=== PATIENT | female | born 1950 | race Two or more races ===

== ENCOUNTER 2018-07-03 15:14 | Emergency (ER) | payer OTHER ==
[2018-07-03 15:27] VITALS: BMI 26.4
--- NOTE | 2018-07-03 15:28 | PDOC ---
Rapid Medical Evaluation Time Seen by Provider: 07/03/18 15:21 Medical Evaluation: Allergies Allergy/AdvReac Type Severity Reaction Status Date / Time No Known Drug Allergies Allergy Verified 01/03/15 06:37 07/03/18 15:21 I have performed a brief in-person evaluation of this patient. The patient presents with a chief complaint of: Recent trave from , had a recent toothache sent by PCP Dr Blevins progressive facial pain since 06/14/18 admitted to hospital in . PCP woild like a CVA work up. There has been no resolutions of symptoms since discharge from hospital in Pertinent physical exam findings: No distress I have ordered the following:CT scan cardiac work up Discharge Disposition - Diagnosis Weakness - Referrals - Patient Instructions - Post Discharge Activity
[2018-07-03] MEDS ORDERED: SODIUM CHLORIDE 1,000 ML IV SCH (15:30)
[2018-07-03 16:20] LABS: BASO % 1.1 % (0-2.0); EOS % 1.5 % (0-4.5); HEMATOCRIT 36.4 % (32.4-45.2); LYMPH % 25.4 % (8-40); MCH 25.5 pg (25.7-33.7); MCHC 32.9 g/dl (32.0-36.0); MEAN CELL VOLUME 77.5 fl (80-96); MEAN PLT VOLUME 9.3 fl (7.5-11.1); MONO % 4.3 % (3.8-10.2); NEUT % 67.7 % (42.8-82.8); PLATELET COUNT 284 K/MM3 (134-434); RBC 4.69 M/mm3 (3.60-5.2); RDW 18.6 % (11.6-15.6); WHITE BLOOD COUNT 7.9 K/mm3 (4.0-10.0)
[2018-07-03 16:46] LABS: INR 1.03 (0.83-1.09); PROTHROMBIN TIME (PATIENT) 12.1 SEC (9.7-13.0)
[2018-07-03 17:09] LABS: ALBUMIN 3.7 g/dl (3.4-5.0); ALK PHOS 167 U/L (45-117); ANION GAP 7 MMOL/L (8-16); BILIRUBIN,TOTAL 0.3 mg/dL (0.2-1); BLOOD UREA NITROGEN 37 mg/dL (7-18); CALCIUM 9.4 mg/dL (8.5-10.1); CHLORIDE 100 mmol/L (98-107); CHOLESTEROL 153 mg/dL (50-200); CO2 29 mmol/L (21-32); CREATININE 1.7 mg/dL (0.55-1.3); HDL CHOLESTEROL 42 mg/dL (40-60); POTASSIUM 4.6 mmol/L (3.5-5.1); SGOT/AST 13 U/L (15-37); SGPT/ALT 20 U/L (13-61); SODIUM 136 mmol/L (136-145); TOT PROT 7.9 g/dl (6.4-8.2); TRIGLYCERIDES 182 mg/dL (0-150)
[2018-07-03 17:12] LABS: GLUCOSE,RANDOM 307 mg/dL (74-106)
[2018-07-03 17:39] LABS: EPI CELLS 15.1 /HPF (0-5); PH,URINE 6.5 (5.0-8.0); URINE APPEARANCE CLOUDY; URINE BACTERIA 54.018 /hpf (NEGATIVE); URINE BILIRUBIN NEGATIVE (<2.0 mg/dL); URINE COLOR YELLOW; URINE GLUCOSE (UA) NEGATIVE (NEGATIVE); URINE KETONE NEGATIVE (NEGATIVE); URINE LEUK ESTERASE 3+ (NEGATIVE); URINE NITRITE NEGATIVE (NEGATIVE); URINE PROTEIN NEGATIVE (NEGATIVE); URINE UROBILINOGEN 0.2 mg/dL (0.2-1.0); URINE WBC 52 /hpf (0-5)
[2018-07-03 18:38] LABS: HYALINE CASTS 4.54 /hpf (0-8); URINE RBC 3.5 /hpf (0-4)
--- NOTE | 2018-07-03 18:47 | PDOC ---
Attending Attestation - Resident Resident Name: Ahsan Kauffman - ED Attending Attestation I have performed the following: I have examined & evaluated the patient, The case was reviewed & discussed with the resident, I agree w/resident's findings & plan - HPI HPI: 07/03/18 18:41 The patient is 68 year old female with a significant past medical history of HTN , HLD, DM, CKD III, moderate aortic stenosis and breast cancer (s/p lumpectomy, RT, and endocrine therapy), and CVA ? who presents to the ER via EMS from her PCP, Dr. Blevins office, for CVA workup and evaluation. As per patient, she had a recent travel to and experienced a recent toothache and progressive facial pain since 06/14/18. The patient was admitted and discharged from a hospital in with no resolution of symptoms. As per ambulatory referral documentation, the patient had a stroke with right face paralysis and left hand cellulitis. today she also c/o right sided facial pain, blurry vision and droopy right eyelid. Denies fever, chills, chest pain, SOB, palpitation, dizziness, weakness, N, V, D , abdominal pain, bladder and bowel problems, leg swelling, No sick contacts or travel. No new changes in medications. Allergies: NKDA Past Medical History: Social history: Lives with family. No smoking. No alcohol. No illicit drugs. Surgical history: PMD: Dr. Blevins, [facility] - Physicial Exam PE: 07/03/18 18:43 Agree with the resident's HPI and PE as documented in the electronic medical record. NAD, visual acuity_20/20 bilaterally with dysconjugate gazing nl conjunctiva, anicteric; neck supple. lungs clear, holosystolic murmur with radiation to the carotids, abdomen soft nontender. RIOS x4, no focal neuro deficits. No peripheral edema. normal color for ethnicity, WWP. Alert, oriented to person time and place. PERRL, Rt eyelid ptosis, +rt medial nerve palsy, unable to adduct and cross midline. +rt superior rectus palsy. no diplopia. no facial droop, bilateral and symmetric nasolabial folds and forehead creases. CN V intact bilaterally with normal sensation in CN V distribution and 5/5 masseters Strength prox and distally 5/5 throughout. Sensation grossly intact to light touch. RIOS x4. No cerebellar signs, no dysmetria, bilateral finger to nose, no nystagmus. Speech clear. 07/03/18 19:13 - Medical Decision Making 07/03/18 18:47 I, Monica Cruz MD, attest that this document has been prepared under my direction and personally reviewed by me in its entirety. I further attest, that it accurately reflects all work, treatment, procedures and medical decision -making performed by me. See HPI for details Vital signs reviewed, wnl. DDx. CVA, head bleed, intra cranial bleed, vasculitis, CVT, cranial nerve palsy Prior notes reviewed, including admissions, discharges and consultations. laboratory results and imaging reviewed, basic labs and lytes wnl, notable for: - Cr elevated 1.7 - glucose elevated, will hydrate and recheck. - trop neg, UA_diff with wbcs/leuk esterase, suggestive of infection, abx. EKG normal sinus rhythm, no interval abnormalities, narrow QRS, ST segments and morphology normal, no depressions or elevations.. TWI in inferior/lateral leads v5-6. no prior, findings are nonspecific but e/o ischemia. Trop neg CT head with rt thalamic hypodense focus, infection vs stroke vs mass, unclear. MRI to differentiate. ED course - neuro exam concerning for oculomotor nerve palsy, ?CVA acute vs subacute; recent dental procedure so high risk for seeding vs embolic/thrombotic event precipitating sx. - neuro cs with Dr Engle, will come to evaluate.. recs pending. likely MRI/ MRA to further elucidate - s/o to Dr Dominguez overnight pending imaging and dispo. 07/03/18 19:13 07/04/18 18:54 07/04/18 18:55 07/04/18 18:55 <Monica Cruz - Last Filed: 07/04/18 18:55> Heart Score/ECG Review #1 ECG reviewed & interpreted by me at: 16:00 General ECG Interpretation: Sinus Rhythm Compared to previous ECG there are: Previous ECG unavail 07/03/18 18:48 EKG normal sinus rhythm 71 bpm, no interval abnormalities, narrow QRS, ST segments and morphology normal, no depressions or elevations.. TWI in inferior/ lateral leads v5-6. 07/03/18 18:48 - ECG Intrepretation Rhythm: Regular Rhythm <Monica Cruz - Last Filed: 07/04/18 18:55> Attestations - Attestations 07/03/18 19:00 Documentation prepared by Johnna Ugalde, acting as medical affairs director for Monica Cruz MD, MD <Johnna Ugalde - Last Filed: 07/03/18 19:00>
[2018-07-03] MEDS ORDERED: SODIUM CHLORIDE 0.9% 500 ML INFUS.BAG IV ONE (18:54)
--- NOTE | 2018-07-03 19:29 | PDOC ---
History of Present Illness - General Chief Complaint: CVA/TIA Stated Complaint: SENT BY PCP Time Seen by Provider: 07/03/18 15:21 History Source: Patient, Family, Primary Care Provider (Visit report provided by family.), Pt declined Financial Reserve Clerk (Pt's family provided interpretation.) Exam Limitations: Language Barrier - History of Present Illness Initial Comments: HPI: 68 y/o female presenting to [facility] ER from Dr. Nehal Mcmullen primary care office for further evaluation of right facial paralysis. Pts family at bedside reports she was hospitalized in the [place] two weeks ago for a tooth infection and unilateral right sided facial swelling. Pt/family unable to provide details of hospital course. She was then discharged and returned [place] the [place]. Family reports the pt has had right eyelid drooping since the admission. Pt endorses blurry vision but no double vision. Also endorses pain around the right eye but denies generalized headache. Unable to recall when the eye pain started. Also reporting swelling in left hand, which has been present since hospital admission and believed to be secondary to IV access. Pt is Hungarian speaking only. Family members at bedside provided interpretation. PCP: Dr. Nehal Blevins Medical Hx: - HTN - HLD - DM - CDK, stage III - Moderate Aortic Stenosis - Breast CA s/p lumpectomy, radiation therapy, and endocrine therapy Past History - Past Medical History Allergies/Adverse Reactions: Allergies Allergy/AdvReac Type Severity Reaction Status Date / Time No Known Drug Allergies Allergy Verified 07/03/18 15:23 Home Medications: Ambulatory Orders Alendronate Sodium [Fosamax] 70 mg PO WEEKLY 01/02/15 Aspirin [ASA -] 81 mg PO DAILY 01/02/15 Atorvastatin Ca [Lipitor] 80 mg PO HS 01/02/15 Calcium Carbonate/Vitamin D3 [Calcium 600-Vit D3 800 Caplet] 1 each PO DAILY Chlorthalidone 25 mg PO DAILY 01/02/15 Famotidine 40 mg PO DAILY 01/02/15 Insulin Glargine,Hum.rec.anlog [Lantus (10mL VIAL) -] 50 units SQ HS 01/02/15 Lisinopril [Prinivil -] 40 mg PO DAILY 01/02/15 Metoprolol Tartrate 50 mg PO BID 01/02/15 Nifedipine [Nifedipine ER] 60 mg PO BID 01/02/15 Cephalexin Monohydrate [Keflex -] 500 mg PO BID 5 Days #10 capsule 07/03/18 Clopidogrel Bisulfate [Clopidogrel] 75 mg PO DAILY 07/03/18 Dulaglutide [Trulicity] 0.75 mg SQ WEEKLY 07/03/18 Fluticasone Prop 0.05% Nasal [Flonase -] 1 - 2 spray NS DAILY 07/03/18 Cancer: Yes (BREAST CANCER) COPD: No Diabetes: Yes (IDDM) HTN: Yes - Suicide/Smoking/Psychosocial Hx Smoking History: Former smoker Have you smoked in the past 12 months: No Number of Cigarettes Smoked Daily: 2,010 Information on smoking cessation initiated: No Hx Alcohol Use: No Drug/Substance Use Hx: No Substance Use Type: None Review of Systems - Review of Systems Able to Perform ROS?: Yes Comments:: In addition to that documented in the HPI above, the additional ROS was obtained : Constitutional: Denies fevers or chills Head: Per HPI ENMT: Denies sore throat CV: Denies chest pain Resp: Denies SOB GI: Denies vomiting or diarrhea : Denies painful urination MSK: Denies recent trauma Skin: Denies new rashes Neuro: Denies new numbness or tingling or weakness Endocrine: Denies polyuria Heme: Denies bleeding or bruising *Physical Exam - Vital Signs Last Vital Signs Temp Pulse Resp BP Pulse Ox 98.4 F 71 17 106/45 L 96 07/03/18 15:20 07/03/18 17:55 07/03/18 17:55 07/03/18 17:55 07/03/18 17:55 - Physical Exam Comments: Constitutional: Adult female in no acute distress or obvious discomfort. Found semi-fowlers on hospital bed. Alert and oriented x4. Speech was non-labored, non -pressured. Head: Normocephalic. No obvious external signs of trauma. Eyes: Right ptosis. Right eye medal, superior, and inferior gaze palsy. Disconjugate gaze. Pupils 4mm and PERRL bilaterally. No reported pain with eye movements. Vision 20/20 in R and L. Sclerae white. Conjunctiva moist and not injected. Ears: Hearing grossly intact. Nose: No nasal discharge. Throat: Oral cavity and pharynx normal. Uvula midline. Neck: Supple, trachea is midline. Cardiovascular / Chest: Regular rate and regular rhythm. Systolic murmur that radiates to the carotids. Peripheral pulses: radial pulses full. Respiratory: Breathing unlabored. Equal chest rise and fall. Clear to auscultation bilaterally. No stridor, no wheezing, no rhonchi. Gastrointestinal: abdomen is soft, non-tender, non-distended. Neuro: Alert and oriented. Moving all four extremities spontaneously. Sensation to all four extremities intact. Upper and lower extremities: proximal and distal strength 5/5. Machine Assistant strength 5/5 - equal and symmetric. Plantar flexion and dorsiflexion 5/5. Intact finger to nose and heel to josue. Skin: Warm, dry, and intact. Psych: Affect: appropriate. Mood: normal. Moderate Sedation - Procedure Monitoring Vital Signs: Procedure Monitoring Vital Signs Temperature 98.4 F 07/03/18 15:20 Pulse Rate 71 07/03/18 17:55 Respiratory Rate 17 07/03/18 17:55 Blood Pressure 106/45 L 07/03/18 17:55 O2 Sat by Pulse Oximetry (%) 96 07/03/18 17:55 ED Treatment Course - LABORATORY CBC & Chemistry Diagram: 07/03/18 16:03 07/03/18 16:03 - ADDITIONAL ORDERS Additional order review: Laboratory Results 07/03/18 07/03/18 07/03/18 16:32 16:03 16:03 PT with INR INR Sodium Potassium Chloride Carbon Dioxide Anion Gap BUN Creatinine Creat Clearance w eGFR Random Glucose Calcium Total Bilirubin AST ALT Alkaline Phosphatase Creatine Kinase Troponin I < 0.02 Total Protein Albumin Triglycerides Cholesterol Total LDL Cholesterol HDL Cholesterol Urine Color Yellow Urine Appearance Cloudy Urine pH 6.5 Ur Specific [place] 1.019 Urine Protein Negative Urine Glucose (UA) Negative Urine Ketones Negative Urine Blood Negative Urine Nitrite Negative Urine Bilirubin Negative Urine Urobilinogen 0.2 Ur Leukocyte Esterase 3+ Urine WBC (Auto) 52 Urine RBC (Auto) 3.5 Urine Casts (Auto) 4.54 U Pathogenic Cast Auto None seen U Epithel Cells (Auto) 15.1 Urine Bacteria (Auto) 54.018 Blood Type O POSITIVE Antibody Screen Negative 07/03/18 07/03/18 16:03 16:03 PT with INR 12.10 INR 1.03 Sodium 136 Potassium 4.6 Chloride 100 Carbon Dioxide 29 Anion Gap 7 L BUN 37 H Creatinine 1.7 H Creat Clearance w eGFR 29.89 Random Glucose 307 H* Calcium 9.4 Total Bilirubin 0.3 AST 13 L ALT 20 Alkaline Phosphatase 167 H Creatine Kinase 35 Troponin I < 0.02 Total Protein 7.9 Albumin 3.7 Triglycerides 182 H Cholesterol 153 Total LDL Cholesterol 91 HDL Cholesterol 42 Urine Color Urine Appearance Urine pH Ur Specific [place] Urine Protein Urine Glucose (UA) Urine Ketones Urine Blood Urine Nitrite Urine Bilirubin Urine Urobilinogen Ur Leukocyte Esterase Urine WBC (Auto) Urine RBC (Auto) Urine Casts (Auto) U Pathogenic Cast Auto U Epithel Cells (Auto) Urine Bacteria (Auto) Blood Type Antibody Screen 07/03/18 16:03 RBC 4.69 MCV 77.5 L MCHC 32.9 RDW 18.6 H MPV 9.3 Neutrophils % 67.7 Lymphocytes % 25.4 Monocytes % 4.3 Eosinophils % 1.5 Basophils % 1.1 - RADIOLOGY Radiograph Interpretation: MRI / MRA of Brain ADDENDUM Comments: Don Mckeon MD wrote on Jul 03, 2018 at 09:19 PM: Referring Physician: BISHOP ARGELIA LEPE This finding was verbally communicated to Dr. Jamari on FriJuly 03 2018 21:15 :35 EDT. THIS DOCUMENT HAS BEEN ELECTRONICALLY SIGNED Don Mckeon MD 07/03/2018 21:18 EST MAntonio. Please call Imaging Salvage Engineer [phone] ([phone]) with questions. Don Mckeon MD Comments: Don Mckeon MD wrote on Jul 03, 2018 at 09:03 PM: Referring Physician: BISHOP STOUT Patient Name: REINALDO LEPE THIS IS A PRELIMINARY REPORT FROM IMAGING SALES PROGRAM MANAGER DATE OF SERVICE: 2018-07-03 20:26:51 IMAGES: 203 EXAM: BRAIN MRA WITHOUT CONTRAST / BRAIN MRI W/O CONTRAST HISTORY: 68-year-old female with 3rd nerve palsy. Evaluate for thrombus lesion. COMPARISON: None provided Findings: MRI brain unenhanced 03 July 2018: No areas of diffusion restriction identified. The ventricular system is of normal size shape and configuration. There is T2/flair signal seen anterior/superior to the frontal horn right left lateral ventricle; more prominent on the left side. Signal also noted at the callosal septal interface. Lesion right thalamus measuring 1.4 x 1.9 x 2.1 cm in dimensions; distal lesion demonstrating increased signal peripherally with decreased signal centrally on the T2 sequences with the exam. Some of the signal extending into the upper mesencephalon right side. MRI brain unenhanced 3D [id number] imaging 03 July 2018. No vascular anomalies of the [place] identified. No major branch vessel cutoff evident. Anterior and posterior communicating arteries are patent. No areas of vascular spasm evident. Impression: 1. Lesion noted right thalamus and extending into the upper mesencephalon right side. Some T2/flair signal also noted anterior/superior to the frontal horns right and left lateral ventricles as well as involving the callosal septal interface. Recommend contrast images in follow-up.. THIS DOCUMENT HAS BEEN ELECTRONICALLY SIGNED Don Mckeon MD 07/03/2018 21:01 EST - Medications Given in the ED: ED Medications Discontinued Medications Generic Name Dose Route Start Last Admin Trade Name Freq PRN Reason Stop Dose Admin Sodium Chloride 1,000 ml 07/03/18 18:54 07/03/18 18:58 Normal Saline - IV 07/03/18 18:55 1,000 ml ONCE ONE Administration Medical Decision Making - Medical Decision Making *Reviewed vital signs, nursing notes, and prior visit documentation (if available). 68 y/o female presenting for right eye ptosis x2 weeks. Found to have medial, superior, and inferior nerve palsy with pupillary sparing in the right eye. CT of head revealed right thalamic lesion, which is likely unrelated to current presentation. Pt evaluated at bedside by Dr. Engle, who suspect symptoms were likely a third nerve palsy related to diabetes/hyperglycemia. Requested MRI and MRA to evaluate for possible aneurysm. MRI and MRA unremarkable for aneurysm. Revealed right thalamic lesions. Case discussed with [facility] radiologist who recommended further evaluation with MRI with contrast. Results discussed with Dr. Engle by telephone who recommended the pt be discharged home with outpatient follow up in his clinic. UA remarkable for pyuria and leukocyte esterase. Prescribed 5 day course of Keflex. Discussed imaging and laboratory results with pt and family. Answered all questions. Provided return precautions. Pt expressed verbal understanding and agreement with plan to discharge home with outpatient follow up. *DC/Admit/Observation/Transfer Diagnosis at time of Disposition: Weakness, Oculomotor nerve palsy, right eye, Ptosis of eyelid, right, UTI ( urinary tract infection) - Discharge Dispostion Disposition: HOME Condition at time of disposition: Good Decision to Admit order: No - Prescriptions Prescriptions: Cephalexin Monohydrate [Keflex -] 500 mg PO BID 5 Days #10 capsule - Referrals Referrals: Nehal Blevins [Primary Care Provider] - Lizandro Engle MD [Staff Physician] - - Patient Instructions Printed Discharge Instructions: DI for Urinary Tract Infection (UTI) Additional Instructions: Usted fue visto hoy por la cada del prpado derecho y la visin borrosa. Los resultados de nguyen TC y RM mostraron que tuvo un accidente cerebrovascular en el pasado, candido el wing afectada no causa la cada del prpado. La cada es probablemente un efecto secundario de nguyen diabetes. Nguyen prueba de orina mostr que tiene pj infeccin del tracto urinario. He enviado pj receta de un antibitico llamado Keflex a nguyen farmacia. Kassandra noa se indica en el prospecto. Debe usar un parche en el rylee chandrika (el rylee normal) hasta que pueda hacer un seguimiento con el Dr. Engle, el neurlogo que lo cash en el servicio de urgencias. Deber llamar para hacer pj fabricio para hacer un seguimiento con el Dr. Engle la prxima semana. El nmero est incluido en carson paquete. Colby debe hacer un seguimiento con nguyen mdico de atencin primaria. Tendr que llamar para hacer pj fabricio. El nmero est incluido en carson paquete. Pj copia de los resultados de hoy se adjunta a carson paquete. Llvelo a la fabricio para que nguyen mdico pueda revisarlos. Vaya al departamento de emergencias ms cercano si nguyen afeccin empeora o si aleks que necesita pj evaluacin de emergencia adicional. You were seen today for right eyelid drooping and blurry vision. Your CT and MRI results showed you had a stroke in the past but the area that was affected does not cause eyelid drooping. The drooping is likely a side effect of your diabetes. Your urine test showed you have a urinary tract infection. I have sent a prescription for an antibiotic called Kemarce to your pharmacy. Take as directed on the package insert. You should wear an eye patch on your left eye (the normal eye) until you are able to follow up with Dr. Engle, the neurologist that saw you in the emergency department. You will need to call to make an appointment to follow up with Dr. Engle next week. The number is included in this packet. You should also follow up with your primary care doctor. You will need to call to make an appointment. The number is included in this packet. A copy of today s results are attached to this packet. Take it to the appointment so your doctor can review them. Go to the nearest emergency department if your condition worsens or you feel like you need additional emergency evaluation. Print Language: SWEDISH - Post Discharge Activity
--- NOTE | 2018-07-03 20:07 | CONSULT ---
Consult - text type - Consultation Consultation Note: NEUROLOGY CONSULTATION is greatly appreciated: Case discussed with Dr. Kauffman. Pt examined with her 2 sons at the bedside who aide with history and translation. This 68 yo RH woman with h/o HTN, DM, Chol, ASHD s/p Rx of breast cancer [place] Three weeks ago she was hospitalized with dental abscess requiring antibiotics. Around the same time she developed double vision and drooping of the right lid which has persisted. In [place] was told she had a "stroke." Pt. denies headache at the onset of her neurological symptoms but does note a few headaches/month associated with photophobia x many years. Mild "tension" over forehead today. CT of head (reviewed): scattered nicrovascular changes. Labs sig for mild microcytic anemia; Glu> 300mg% and Urine WBC.30. VIPIN: Neck supple. No bruits. Cor reg. NEURO: Awake, alert. Ox 3. MS, Speech: normal CN II-XII: Right ptosis. R exotropia. No adduction, elevation or depression OD. [id number]. R orbit internally rotates. Motor: No drift or tremor. Normal strength, tone and bulk. Normal reflexes except absent AJ's. Toes downgoing. Coord: No FTN dystaxia Sensory: Reduced vibration feet. IMP: Right CN III mononeuropathy. Pupil spared. Most likely diabetic etiology. Diabetic peripheral neuropathy SUGGEST: MRI and MR angio of the [place] to R/O right PComm aneurysm. Rx UTI and hyperglycemia. If MRA is negative- Neuro f/u as out patient. Thank you very much, Lizandro Engle MD
[2018-07-03 21:14] VITALS: BP 135/64; PULSE 77; TEMP 98.1
--- NOTE | 2018-07-04 16:32 | EKG ---
Test Reason : Blood Pressure : / mmHG Vent. Rate : 071 BPM Atrial Rate : 071 BPM P-R Int : 176 ms QRS Dur : 102 ms QT Int : 374 ms P-R-T Axes : 052 019 -28 degrees QTc Int : 406 ms NORMAL SINUS RHYTHM T WAVE ABNORMALITY, CONSIDER INFERIOR ISCHEMIA ABNORMAL ECG NO PREVIOUS ECGS AVAILABLE Confirmed by MADELINE BOYD MD ([id number]) on 07/04/2018 4:32:26 PM Referred By: Confirmed By:MADELINE BOYD MD
== END 2018-07-03 22:42 | disposition home or self-care (01) ==
LOC: JER 15:14
DX: N39.0 Urinary tract infection, site not specified (principal); H49.01 Third [oculomotor] nerve palsy, right eye; M62.81 Muscle weakness (generalized)
CPT/HCPCS: 36415; 70450-TC; 70544-TC; 70551-TC; 80053; 81003; 82465; 82550; 83718; 83721; 84478; 84484; 85025; 85610; 86850; 86900; 86901; 93005; 93010; 99285-25; J7030

== ENCOUNTER 2018-07-13 16:52 | Inpatient (IN) | payer OTHER ==
--- NOTE | 2018-07-13 17:13 | PDOC ---
Rapid Medical Evaluation Time Seen by Provider: 07/13/18 17:08 Medical Evaluation: Allergies Allergy/AdvReac Type Severity Reaction Status Date / Time No Known Drug Allergies Allergy Verified 07/03/18 15:23 07/13/18 17:11 I have performed a brief in-person evaluation of this patient The patient present with a chief complaint of: sent from pmd for further evaluation. As per family patient seen and released from emergency room 07/03/18. Sent back to ed for mri with constrast. Patient reports dizziness Pertinent physical exam findings: NAD HEENT: PERRLA even and unlabored breathing I have ordered the following: labs, iv acces The patient will proceed to the ED for further evaluation. Discharge Disposition - Diagnosis Dizziness - Referrals - Patient Instructions - Post Discharge Activity
[2018-07-13 17:14] VITALS: BMI 28.2
[2018-07-13 17:33] LABS: BASO % 0.8 % (0-2.0); EOS % 1.4 % (0-4.5); HEMATOCRIT 37.4 % (32.4-45.2); HEMOGLOBIN 11.9 GM/dL (10.7-15.3); LYMPH % 37.9 % (8-40); MCH 24.6 pg (25.7-33.7); MCHC 31.9 g/dl (32.0-36.0); MEAN CELL VOLUME 77.2 fl (80-96); MEAN PLT VOLUME 9.2 fl (7.5-11.1); MONO % 4.6 % (3.8-10.2); NEUT % 55.3 % (42.8-82.8); PLATELET COUNT 173 K/MM3 (134-434); RBC 4.85 M/mm3 (3.60-5.2); RDW 18.8 % (11.6-15.6); WHITE BLOOD COUNT 5.9 K/mm3 (4.0-10.0)
[2018-07-13 18:30] LABS: ALBUMIN 3.8 g/dl (3.4-5.0); ALK PHOS 132 U/L (45-117); ANION GAP 8 MMOL/L (8-16); BILIRUBIN,TOTAL 0.3 mg/dL (0.2-1); BLOOD UREA NITROGEN 28 mg/dL (7-18); CALCIUM 9.4 mg/dL (8.5-10.1); CHLORIDE 102 mmol/L (98-107); CO2 27 mmol/L (21-32); CREATININE 1.5 mg/dL (0.55-1.3); GLUCOSE,RANDOM 205 mg/dL (74-106); POTASSIUM 4.3 mmol/L (3.5-5.1); SGOT/AST 17 U/L (15-37); SGPT/ALT 21 U/L (13-61); SODIUM 136 mmol/L (136-145); TOT PROT 7.7 g/dl (6.4-8.2)
--- NOTE | 2018-07-13 19:07 | PDOC ---
History of Present Illness - General Chief Complaint: CVA/TIA Stated Complaint: to be seen Time Seen by Provider: 07/13/18 17:08 History Source: Patient, Family Exam Limitations: Clinical Condition - History of Present Illness Initial Comments: Pt is Tajik speaking only. Family members at bedside provided interpretation. 68 yo F w a pmh of HTN, HLD, IDDM, CKD stage 3, Moderate aortic stenosis, Breast Ca s/p lumpectomy, radiation therapy and endocrine therapy presents to the ER sent in from Dr. Fall office to receive some labs - CBC, CMP and a brain MRI w and wo contrast to potentially rule out a cerebral abscess. The patient was at Dr. Fall office earlier today and was sent to the ER. Patients family at bedside explains that the patient was recently hospitalized on July 03 to have a stroke work up. The say her eyes have been acting funny and she has experienced a right eyelid droop. 3 weeks ago she was hospitalized in the [facility] for a tooth infection and unilateral right sided facial swelling but the family cannot provide details of the hospital course. The patient is not very conversive and differs to her family for the history. The one thing she does say is that when she turns her head in bed she feels very dizzy and that the room starts spinning. She also endorses right sided facial pain around her eye and right forehead. PCP: Dr. Nehal Blevins PSH: Lumpectomy Allergies: NKDA, NKA Social Hx: Lives with family. No smoking. No alcohol. No illicit drugs. Past History - Past Medical History Allergies/Adverse Reactions: Allergies Allergy/AdvReac Type Severity Reaction Status Date / Time No Known Drug Allergies Allergy Verified 07/03/18 15:23 Home Medications: Ambulatory Orders Alendronate Sodium [Fosamax] 70 mg PO WEEKLY 01/02/15 Aspirin [ASA -] 81 mg PO DAILY 01/02/15 Atorvastatin Ca [Lipitor] 80 mg PO HS 01/02/15 Calcium Carbonate/Vitamin D3 [Calcium 600-Vit D3 800 Caplet] 1 each PO DAILY Chlorthalidone 25 mg PO DAILY 01/02/15 Famotidine 40 mg PO DAILY 01/02/15 Insulin Glargine,Hum.rec.anlog [Lantus (10mL VIAL) -] 50 units SQ HS 01/02/15 Lisinopril [Prinivil -] 40 mg PO DAILY 01/02/15 Metoprolol Tartrate 50 mg PO BID 01/02/15 Nifedipine [Nifedipine ER] 60 mg PO BID 01/02/15 Cephalexin Monohydrate [Keflex -] 500 mg PO BID 5 Days #10 capsule 07/03/18 Clopidogrel Bisulfate [Clopidogrel] 75 mg PO DAILY 07/03/18 Dulaglutide [Trulicity] 0.75 mg SQ WEEKLY 07/03/18 Fluticasone Prop 0.05% Nasal [Flonase -] 1 - 2 spray NS DAILY 07/03/18 Cancer: Yes (BREAST CANCER) COPD: No Diabetes: Yes (IDDM) HTN: Yes - Immunization History Immunization Up to Date: (Unknown) - Suicide/Smoking/Psychosocial Hx Smoking History: Unknown if ever smoked Have you smoked in the past 12 months: No Number of Cigarettes Smoked Daily: 2,010 Hx Alcohol Use: No Drug/Substance Use Hx: No Substance Use Type: None Review of Systems - Review of Systems Able to Perform ROS?: Yes Comments:: CONSTITUTIONAL: Absent: fever, no chills, no fatigue EYES: Present: right eye visual changes ENT: Absent: ear pain, no sore throat CARDIOVASCULAR: Absent: chest pain, no palpitations RESPIRATORY: Absent: cough, no SOB GI: Absent: abdominal pain, no nausea, no vomiting, no constipation, no diarrhea GENITOURINARY: Absent: dysuria, no frequency, no hematuria MUSKULOSKELETAL: Absent: back pain, no arthralgia, no myalgia SKIN: Absent: rash NEURO: Present: Headache, paresthesia, dizziness Absent: focal weakness, unsteady gait, seizure, mental status changes, bladder or bowel incontinence *Physical Exam - Vital Signs Last Vital Signs Temp Pulse Resp BP Pulse Ox 98.3 F 75 20 114/59 L 95 07/13/18 17:08 07/13/18 17:08 07/13/18 17:08 07/13/18 17:08 07/13/18 17:08 - Physical Exam Comments: GENERAL: The patient is not well groomed. Well nourished. Awake and alert. No acute distress. HEENT: Normocephalic, atraumatic. PERRLA, EOMI. No conjunctival pallor. Sclera are non- icteric. Moist mucous membranes. Oropharynx is clear. NECK: Supple. Full ROM. No JVD. No lymphadenopathy. CARDIOVASCULAR: Regular rate and rhythm. No murmurs, rubs, or gallops. Distal pulses are 2+ and symmetric. PULMONARY: No evidence of respiratory distress. Lungs clear to auscultation bilaterally. No wheezing, rales or rhonchi. ABDOMINAL: Soft. Non-tender. Non-distended. No rebound or guarding. No organomegaly. Normoactive bowel sounds. MUSCULOSKELETAL Normal range of motion at all joints. No bony deformities or tenderness. No CVA tenderness. EXTREMITIES: No cyanosis. No clubbing. No edema. No calf tenderness. SKIN: Warm and dry. Normal capillary refill. No rashes. No jaundice. NEUROLOGICAL: There are dystesias in the right CN 5 opthalmic and maxillary distribution. There is a mild right sided facial droop. Alert, awake, appropriate. Otherwise, Cranial nerves 2-12 grossly intact. No other deficits to light touch in face, upper extremities and lower extremities. No other motor deficits in the in face , upper extremities and lower extremities. Normal speech. Toes are down-going bilaterally. PSYCHIATRIC: Cooperative. Good eye contact. Appropriate mood and affect. ED Treatment Course - LABORATORY CBC & Chemistry Diagram: 07/13/18 17:19 07/13/18 17:19 - ADDITIONAL ORDERS Additional order review: Laboratory Results 07/13/18 17:19 Sodium 136 Potassium 4.3 Chloride 102 Carbon Dioxide 27 Anion Gap 8 BUN 28 H Creatinine 1.5 H Creat Clearance w eGFR 34.53 Random Glucose 205 H Calcium 9.4 Total Bilirubin 0.3 AST 17 ALT 21 Alkaline Phosphatase 132 H Total Protein 7.7 Albumin 3.8 07/13/18 17:19 RBC 4.85 MCV 77.2 L MCHC 31.9 L RDW 18.8 H MPV 9.2 Neutrophils % 55.3 Lymphocytes % 37.9 D Monocytes % 4.6 Eosinophils % 1.4 Basophils % 0.8 Medical Decision Making - Medical Decision Making 68 yo F w a pmh of HTN, HLD, IDDM, CKD stage 3, Moderate aortic stenosis, Breast Ca s/p lumpectomy, radiation therapy and endocrine therapy presents to the ER sent in from Dr. Fall office to receive some labs - CBC, CMP and a brain MRI w and wo contrast to potentially rule out a cerebral abscess. The patient was at Dr. Fall office earlier today and was sent to the ER. Patients family at bedside explains that the patient was recently hospitalized on July 03 to have a stroke work up. The say her eyes have been acting funny and she has experienced a right eyelid droop. 3 weeks ago she was hospitalized in the [facility] for a tooth infection and unilateral right sided facial swelling but the family cannot provide details of the hospital course. The patient is not very conversive and differs to her family for the history. The one thing she does say is that when she turns her head in bed she feels very dizzy and that the room starts spinning. She also endorses right sided facial pain around her eye and right forehead. VS: WNL DDx IBNLT: CVA/TIA, cerebral abscess, vascular malformation, complex migraine Plan: Cbc, Cmp, Neuro consult - Oniel, ID consult - Girish, re-assess. Consult placed to Dr. Engle - Dr. Engle states patient likely has a cerebral right thalamic abscess. The patient has received partial Abx treatment once in the DR and again with keflex from the ED but neither of these treatments have anaerobic coverage which is almost certainly the culprit given that this patient's original infection was a toothache which typically involves anaerobic coverage. As per Dr. Fall requests - Will obtain ESR, CRP, MRI w/ contrast, consult ID - Dr. Stout, and admit to the hospital. Consult placed to Dr. Stout - He requests treatment with Vanc, Clinda, and meropenem to treat the likely cerebral abscess. He would like 1 dose of Vanc and Clinda in the ED and 3 doses of Meropenem. Will order MRI, and admit patient for further care. *DC/Admit/Observation/Transfer Diagnosis at time of Disposition: Dizziness, Cerebral abscess - Discharge Dispostion Condition at time of disposition: Guarded Decision to Admit order: Yes - Referrals Referrals: Nehal Blevins [Primary Care Provider] - - Patient Instructions - Post Discharge Activity
--- NOTE | 2018-07-13 19:38 | PDOC ---
Attending Attestation - HPI HPI: 07/13/18 20:07 The patient is a 68 year old female, with a significant past medical history of HTN, HLD, IDDM, CKD stage III, Moderate aortic stenosis, Breast Ca (s/p lumpectomy, radiation therapy and endocrine therapy), who presents to the emergency department from neurologist office to r/o rule out a cerebral abscess. As per patients neurologist, she was admitted in the [facility] [place] for tooth infection and given unknown antibiotics. Patient was evaluated in the ED 2 weeks ago and treated for a UTI. She denies recent chest pain or shortness of breath. Allergies: NKDA Past surgical history: Lumpectomy Social history: Nonsmoker. Denies EtOH use and recreational drug use. Primary Care Physician: Dr. Nehal Blevins - Physicial Exam PE: 07/13/18 20:07 Refer to resident exam. <Socrates Wing - Last Filed: 07/13/18 20:07> - Resident Resident Name: Ward Anderson - ED Attending Attestation I have performed the following: I have examined & evaluated the patient, The case was reviewed & discussed with the resident, I agree w/resident's findings & plan - Medical Decision Making 07/13/18 23:43 68-year-old female with worsening right facial weakness Admission recommended by neurology, case discussed with neurology by the emergency medicine resident MRI ordered for the morning Family advised that patient will need admission IV antibiotics initiated in the emergency department for presumed intracranial abscess <Jeniffer Diaz - Last Filed: 07/13/18 23:45> Attestations - Attestations 07/13/18 20:08 Documentation prepared by Socrates Wing, acting as medical records library professor for Jeniffer Diaz DO. <Socrates Wing - Last Filed: 07/13/18 20:07>
[2018-07-13] MEDS ORDERED: VANCOMYCIN 1,000 MG in DEXTROSE 5%-WATER - 250 ML IVPB ONE (19:53)
[2018-07-13] MEDS ORDERED: MEROPENEM 1 GM in DEXTROSE 5%-WATER 100 ML IVPB ONE (19:54)
[2018-07-13] MEDS ORDERED: CLINDAMYCIN 600MG PREMIX IVPB 600 MG/50 ML BAG IVPB ONE ×2 (19:54→20:25)
[2018-07-13] MEDS ORDERED: VANCOMYCIN 1 GRAM (PRE-DOCKED) 1,000 MG/250 ML BAG IVPB ONE (20:25)
--- NOTE | 2018-07-13 20:31 | PN ---
Teaching Attending Note Name of Resident: Lizandro Olivera ATTENDING PHYSICIAN STATEMENT I saw and evaluated the patient. I reviewed the resident's note and discussed the case with the resident. I agree with the resident's findings and plan as documented. SUBJECTIVE: Patient is a 68 year old woman with PMH of HTN, HLD, Insulin-treated DM, CKD, Moderate aortic stenosis, Breast Ca s/p lumpectomy, radiation therapy and endocrine therapy presents to the ER sent in from Dr. Engle's office to get Labs - CBC, CMP and a brain MRI w/wo contrast to potentially rule out a cerebral abscess. Patient's family at bedside explains that the patient was recently hospitalized on July 03 to have a stroke work up. The say her eyes have been acting funny and she has experienced a right eyelid droop. Three weeks ago she was [place] for a [place] infection and unilateral right sided facial swelling but the family cannot provide details of the hospital course. The one thing she does say is that when she turns her head in bed she feels very dizzy and that the room starts spinning. She also endorses right sided facial pain around her eye and right forehead. Denies fever, chills, chest pain, SOB, palpitation, dizziness, weakness, nausea , vomiting, diarrhea, abdominal pain, bladder and bowel problems or leg swelling. OBJECTIVE: Somnolent but arousable Vital Signs Period Temp Pulse Resp BP Sys/Alvares Pulse Ox Last 24 Hr 98.3 F 75 20 114/59 95 HEENT: No Jaundice, eye redness or discharge, PERRLA, right eye ptosis and gaze palsy. Normocephalic, atraumatic. External ears are normal and hearing is grossly intact. No nasal discharge. Neck: Supple, nontender. No palpable adenopathy or thyromegaly. No JVD Chest: Good effort. Clear to auscultation and percussion. Heart: Regular. No S3 or rub; 3/6 LELIA Abdomen: Not distended, soft, nontender and no HSM. No rebound or guarding. Normal bowel sounds. Ext: Peripheral pulses intact. No leg edema. Skin: Warm and dry. No petechiae, rash or ecchymosis. Neuro: Somnolent but arousable. Oriented x3. CN 2-12 grossly intact. Sensation grossly intact in all four extremities and DTR are symmetric. Gait cannot be tested for safety reasons. Plantar reflexes are flexor. Psych: Sad mood. Appropriate affect. Good insight. Current Medications Generic Name Dose Route Start Last Admin Trade Name Gisell PRN Reason Stop Dose Admin Vancomycin HCl 1,000 mg/ 250 mls @ 166.667 mls/hr 07/13/18 19:53 Dextrose IVPB 07/13/18 21:22 ONCE ONE Protocol Home Medications Medication Instructions Recorded Alendronate Sodium [Fosamax] 70 mg PO WEEKLY 01/02/15 Aspirin [ASA -] 81 mg PO DAILY 01/02/15 Atorvastatin Ca [Lipitor] 80 mg PO HS 01/02/15 Calcium Carbonate/Vitamin D3 1 each PO DAILY 01/02/15 [Calcium 600-Vit D3 800 Caplet] Chlorthalidone 25 mg PO DAILY 01/02/15 Famotidine 40 mg PO DAILY 01/02/15 Insulin Glargine,Hum.rec.anlog 50 units SQ HS 01/02/15 [Lantus (10mL VIAL) -] Lisinopril [Prinivil -] 40 mg PO DAILY 01/02/15 Metoprolol Tartrate 50 mg PO BID 01/02/15 Nifedipine [Nifedipine ER] 60 mg PO BID 01/02/15 Cephalexin Monohydrate [Keflex -] 500 mg PO BID 5 Days #10 capsule 07/03/18 Clopidogrel Bisulfate [Clopidogrel] 75 mg PO DAILY 07/03/18 Dulaglutide [Trulicity] 0.75 mg SQ WEEKLY 07/03/18 Fluticasone Prop 0.05% Nasal 1 - 2 spray NS DAILY 07/03/18 [Flonase -] Abnormal Lab Results 07/13/18 07/13/18 17:19 17:19 MCV 77.2 L MCH 24.6 L MCHC 31.9 L RDW 18.8 H BUN 28 H Creatinine 1.5 H Random Glucose 205 H Alkaline Phosphatase 132 H ASSESSMENT AND PLAN: 1. Dizziness/Right eye gaze plasy/Rule out Cerebral Abscess - On 07/03/[address], MRI/MRA. 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 Neurosurgery and ID consults noted. Patient was recently treated with antibiotics (Keflex) for UTI on 07/03/18 though the urine culture was negative. Unclear if she indeed had a "dental abscess" in the [place] and what antibiotic she received. Etiology of intracranial space occupying lesion is unclear. She is afebrile and does not have leukocytosis. ECHO (vegetations?) and facial bone/soft tissue CT ( residue of dental infection?) may be helpful. ID recommended IV vancomycin/ clindamycin and meropenem. Repeat MRI brain pending. Will do neurochecks and implement fall, seizure and aspiration precautions. 2. DM For now, we will hold the home diabetes drugs and implement sliding scale insulin regimen. Provide comprehensive diabetes care with patient teaching and counseling about the importance of adherence to prescribed diabetes regimen, euglycemia, eye care and foot care. 3. CKD - Has risk factors for CKD, but unclear whether she has gotten a full nephrologic work up. Will check PTH and phosphate levels. Avoid nephrotoxic agents such as NSAIDS, aminoglycosides, contrast dyes and certain Alternative medicine products. 4. Hypertension - Restart outpatient antihypertensive drugs and revise regimen to ensure smooth [id number] good BP control. Nonpharmacologic measures to control hypertension like weight loss, salt restriction and exercise discussed. 5. DVT prophylaxis - Heparin 5000 units SQ tid. 6. Advance directives - Full code
--- NOTE | 2018-07-13 21:17 | CON.ID ---
Consult - Alcohol/Substance Use Hx Alcohol Use: No - Smoking History Smoking history: Unknown if ever smoked Have you smoked in the past 12 months: No Aproximately how many cigarettes per day: 2,010 Home Medications - Allergies Allergies/Adverse Reactions: Allergies Allergy/AdvReac Type Severity Reaction Status Date / Time No Known Drug Allergies Allergy Verified 07/03/18 15:23 - Home Medications Home Medications: Ambulatory Orders Alendronate Sodium [Fosamax] 70 mg PO WEEKLY 01/02/15 Aspirin [ASA -] 81 mg PO DAILY 01/02/15 Atorvastatin Ca [Lipitor] 80 mg PO HS 01/02/15 Calcium Carbonate/Vitamin D3 [Calcium 600-Vit D3 800 Caplet] 1 each PO DAILY Chlorthalidone 25 mg PO DAILY 01/02/15 Famotidine 40 mg PO DAILY 01/02/15 Insulin Glargine,Hum.rec.anlog [Lantus (10mL VIAL) -] 50 units SQ HS 01/02/15 Lisinopril [Prinivil -] 40 mg PO DAILY 01/02/15 Metoprolol Tartrate 50 mg PO BID 01/02/15 Nifedipine [Nifedipine ER] 60 mg PO BID 01/02/15 Cephalexin Monohydrate [Keflex -] 500 mg PO BID 5 Days #10 capsule 07/03/18 Clopidogrel Bisulfate [Clopidogrel] 75 mg PO DAILY 07/03/18 Dulaglutide [Trulicity] 0.75 mg SQ WEEKLY 07/03/18 Fluticasone Prop 0.05% Nasal [Flonase -] 1 - 2 spray NS DAILY 07/03/18 Physical Exam Vital Signs: Vital Signs Temperature 98.3 F 07/13/18 17:08 Pulse Rate 75 07/13/18 17:08 Respiratory Rate 20 07/13/18 17:08 Blood Pressure 114/59 L 07/13/18 17:08 O2 Sat by Pulse Oximetry (%) 95 07/13/18 17:08 Labs: CBC, BMP 07/13/18 17:19 07/13/18 17:19
--- NOTE | 2018-07-13 22:58 | HP ---
CHIEF COMPLAINT: Right eye droop PCP: Dr. Nehla Blevins HISTORY OF PRESENT ILLNESS: Pt. is a 68 y.o. Paraguayan-speaking F presenting at the request of Dr. Engle for evaluation of suspected cerebral abscess. History obtained mostly from daughter and son at bedside. Pt. has been having ongoing right eye droop, lethargy and unstable gait ever since she returned from the [facility] over [address] [place] Pt. was hospitalized for a tooth extraction 2/2 infection? and afterwards the symptoms were noted to have started. Pt. was evaluated for CVA with negative radiological findings. Pt. recently seen in ED (07/03/18) for similar complaints(CVA workup) and was discharged on 5 days Keflex for UTI and with instructions to follow up with Neurology. Per Pt.'s daughter there has been some improvement since 07/03/18 however Pt. has not gone back to her baseline self which is walking ~5 blocks/ day talking and taking care of herself at home. Pt. endorses unstable gait, double vision, right superior periorbital tenderness to palpation associated with headache, lethargy, fatigue and dizziness. Pt. denies any fever or chills, diarrhea, chest pain or shortness of breath. ER course was notable for: (1)labs, Neurology and ID consults (2)Ame Donnelly Clinda (3)MRI order Recent Travel: Yes, [facility] PAST MEDICAL HISTORY: HTN, HLD, CKD, Aortic Stenosis, Breast Ca (s/p RT, Endocrine therapy and lumpectomy in 2011), CAD, and CVA? PAST SURGICAL HISTORY: Lumpectomy, Carotid Endarterectomy (2017) Social History: Smoking: Quit smoking 20 years ago, was 1 PPD Alcohol: Denies Drugs: Denies Family History: Allergies No Known Drug Allergies Allergy (Verified 07/03/18 15:23) HOME MEDICATIONS: Home Medications Medication Instructions Recorded Alendronate Sodium [Fosamax] 70 mg PO WEEKLY 01/02/15 Aspirin [ASA -] 81 mg PO DAILY 01/02/15 Atorvastatin Ca [Lipitor] 80 mg PO HS 01/02/15 Calcium Carbonate/Vitamin D3 1 each PO DAILY 01/02/15 [Calcium 600-Vit D3 800 Caplet] Chlorthalidone 25 mg PO DAILY 01/02/15 Famotidine 40 mg PO DAILY 01/02/15 Insulin Glargine,Hum.rec.anlog 50 units SQ HS 01/02/15 [Lantus (10mL VIAL) -] Lisinopril [Prinivil -] 40 mg PO DAILY 01/02/15 Metoprolol Tartrate 50 mg PO BID 01/02/15 Nifedipine [Nifedipine ER] 60 mg PO BID 01/02/15 Cephalexin Monohydrate [Keflex -] 500 mg PO BID 5 Days #10 capsule 07/03/18 Clopidogrel Bisulfate [Clopidogrel] 75 mg PO DAILY 07/03/18 Dulaglutide [Trulicity] 0.75 mg SQ WEEKLY 07/03/18 Fluticasone Prop 0.05% Nasal 1 - 2 spray NS DAILY 07/03/18 [Flonase -] REVIEW OF SYSTEMS As per [facility] PHYSICAL EXAMINATION Vital Signs - 24 hr 07/13/18 17:08 Temperature 98.3 F Pulse Rate 75 Respiratory 20 Rate Blood Pressure 114/59 L O2 Sat by Pulse 95 Oximetry (%) GENERAL: Awake, lethargic, and fully oriented, in mild distress. HEAD: Normal with no signs of gross trauma. EYES: R. Eye unable to cross midline on left lateral gaze. R. eye unable to look downward. R. pupil has sluggish reaction to light. Pt. endorses being able to see out of right eye. Left eye unremarkable. EARS, NOSE, THROAT: Ears normal, nares patent, oropharynx clear without exudates. Moist mucous membranes. NECK: Normal range of motion, supple without lymphadenopathy, JVD, or masses. LUNGS: Diffuse crackles, increasingly prominent in fluid dependant portions of lung, No accessory muscle use. HEART: Grade III Systolic murmur, regular rate and rhythm, with S1 and S2 ABDOMEN: Soft, nontender, not distended, normoactive bowel sounds, no guarding, no rebound, no masses. MUSCULOSKELETAL: Normal range of motion at all joints. No bony deformities or tenderness. No CVA tenderness. UPPER EXTREMITIES: 2+ radial pulses, warm, well-perfused. No cyanosis. No clubbing. No peripheral edema. 5/5 upper extremity strength LOWER EXTREMITIES: 2+ dorsal pedal pulses, warm, well-perfused. No calf tenderness. No peripheral edema. Unable to lift legs off bed for more than 5 seconds because of pain in knees NEUROLOGICAL: Lethargic SKIN: Warm, dry, normal turgor, no rashes or lesions noted, normal capillary refill. Laboratory Results - last 24 hr 07/13/18 07/13/18 07/13/18 17:19 17:19 21:05 WBC 5.9 RBC 4.85 Hgb 11.9 Hct 37.4 MCV 77.2 L MCH 24.6 L MCHC 31.9 L RDW 18.8 H Plt Count 173 D MPV 9.2 Absolute Neuts (auto) 3.2 Neutrophils % 55.3 Lymphocytes % 37.9 D Monocytes % 4.6 Eosinophils % 1.4 Basophils % 0.8 Nucleated RBC % 0 ESR 8 Sodium 136 Potassium 4.3 Chloride 102 Carbon Dioxide 27 Anion Gap 8 BUN 28 H Creatinine 1.5 H Creat Clearance w eGFR 34.53 Random Glucose 205 H Calcium 9.4 Total Bilirubin 0.3 AST 17 ALT 21 Alkaline Phosphatase 132 H C-Reactive Protein < 0.3 Total Protein 7.7 Albumin 3.8 ASSESSMENT/PLAN: Pt. is a 68 y.o. [place]aguayan-speaking F w/ PMHx. of HTN, HLD, CKD, Aortic Stenosis, Breast Ca, CAD, and CVA? presents at the request of Dr. Engle for evaluation of suspected cerebral abscess. #Suspected Cerebral Abscess Started on IV Abx (Vanco, Merrem and Clindamycin)- likely causative agents are Strep and Staph from dental procedure, no documentation of more common agents in the [place] other than parasites. No elevated WBCs, afebrile- however up to 50% of Pts. with abscess can present with only focal neurological deficits and headaches f/u old Head CT to compare as unlikely Pt. developed a new AVM. f/u Blood Cx. f/u Rpt. MRI MRI from 07/03/18 showed 4.8mm aneurysm of R. 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 Engle reads an abscess. ID Consult to Dr. Stout appreciated Neuro consult to Dr. Engle appreciated Consider Dental CT w/ contrast to assess if Pt. has abscess around dental site for speciation Consider HIV test and Parasitic/Fungal agents if Pt.'s condition continues to worsen or Pt. does not improve. #IDDM hold home oral meds ISS TIDAC BGM TIDAC f/u A1c #CKD vs. BRYON likely CKD given Pt.s Age, Hx. of HTN, DM and amount and dosage of medications Trend BMP Pt. endorses good appetite therefore will encourage PO intake #HTN Medication reconciliation- as Pt. has Aortic stenosis, care to avoid large swings in BP. c/w Nifedipine, Metoprolol, and Lisinopril #CAD/PAD/HLD c/w Plavix, ASA and Atorvastatin #FEN encourage PO intake monitor electrolytes and replete as needed Diabetic/Na restricted Diet #DVT ppx. Hep 5k BID SQ Visit type - Emergency Visit Emergency Visit: Yes ED Registration Date: 07/13/18 Care time: The patient presented to the Emergency Department on the above date and was hospitalized for further evaluation of their emergent condition. - New Patient This patient is new to me today: Yes Date on this admission: 07/13/18 - Critical Care Critical Care patient: No
[2018-07-14] MEDS ORDERED: ALENDRONATE SODIUM 70 MG PO SCH (02:30)
[2018-07-14] MEDS: MEROPENEM 1 GM in DEXTROSE 5%-WATER 100 ML IVPB SCH ×3 (05:45→21:39)
[2018-07-14 06:26] LABS: BASO % 0.4 % (0-2.0); EOS % 1.7 % (0-4.5); HEMATOCRIT 35.9 % (32.4-45.2); HEMOGLOBIN 11.1 GM/dL (10.7-15.3); LYMPH % 46.8 % (8-40); MCH 23.9 pg (25.7-33.7); MEAN CELL VOLUME 76.9 fl (80-96); MEAN PLT VOLUME 9.2 fl (7.5-11.1); MONO % 7.5 % (3.8-10.2); NEUT % 43.6 % (42.8-82.8); PLATELET COUNT 156 K/MM3 (134-434); RBC 4.67 M/mm3 (3.60-5.2); WHITE BLOOD COUNT 5.5 K/mm3 (4.0-10.0)
[2018-07-14] MEDS: INSULIN SLIDING SCALE (NOVOLOG) 1 VIAL SQ SCH ×3 (06:56→17:04)
[2018-07-14 07:00] LABS: ANION GAP 5 MMOL/L (8-16); BLOOD UREA NITROGEN 29 mg/dL (7-18); CALCIUM 9.3 mg/dL (8.5-10.1); CHLORIDE 103 mmol/L (98-107); CO2 28 mmol/L (21-32); CREATININE 1.4 mg/dL (0.55-1.3); GLUCOSE,RANDOM 157 mg/dL (74-106); MAGNESIUM 2.4 mg/dL (1.8-2.4); PHOSPHOROUS 4.7 mg/dL (2.5-4.9); SODIUM 136 mmol/L (136-145)
[2018-07-14] MEDS: ASPIRIN 81 MG CHEWABLE TABLETS PO SCH (09:06)
[2018-07-14] MEDS: CHLORTHALIDONE 25 MG TABLET PO SCH (09:06)
[2018-07-14] MEDS: METOPROLOL TARTRATE 50 MG TABLET (FP) PO SCH ×2 (09:06→21:40)
[2018-07-14] MEDS: HEPARIN NA (PORCINE) 5,000 UNITS/ML 1ML VIAL SQ SCH ×2 (09:06→21:40)
[2018-07-14] MEDS: CLOPIDOGREL BISULFATE 75 MG TABLET (FP) PO SCH (09:07)
[2018-07-14] MEDS: LISINOPRIL 20 MG TABLET (FP) PO SCH (09:07)
[2018-07-14] MEDS: NIFEdipine E.R 60 MG TABLET (UD) PO SCH ×2 (09:07→21:40)
[2018-07-14] MEDS: RANITIDINE HCL 150 MG TABLET (FP) PO SCH (09:07)
--- NOTE | 2018-07-14 12:58 | PN ---
Teaching Attending Note Name of Resident: Abiodun Cadet ATTENDING PHYSICIAN STATEMENT I saw and evaluated the patient. I reviewed the resident's note and discussed the case with the resident. I agree with the resident's findings and plan as documented. SUBJECTIVE:continues to be dizzy with blurred vision. as per son present at bedside. has had these symptoms since return from DR. benitez all the time and not worse with movement. has not had any other complaints. denies CP, SOB, fever, chills, N/V/C/D, weakness/numbness of one side of the body. no episodes in the past OBJECTIVE: Last Vital Signs Temp Pulse Resp BP Pulse Ox 97.9 F 66 16 117/51 L 98 07/14/18 09:00 07/14/18 09:00 07/14/18 09:00 07/14/18 09:00 07/14/18 06:23 General. lethargic CV S1 S2 +murmur Lungs CTA B/L no wheezing/rales/rhonchi Abdomen Soft NT/ND Neuro R lid lag, remaining CN intact, strength and sensation equal in all 4 extremities. ASSESSMENT AND PLAN: 68yo F with PMH HTN, DM, Dyslipidemia, CKD, breast ca s/p lumpectomy presented to the ER for persistent dizzyness and blurred vision with concerns for cerebral abscess 1. Dizznesss- r/o cerbral abscess. MRI with contrast is ordered. reviewed MRI/ MRA done last month showing aneurysm but no other pathology to explain symptoms. started on empiric meropenem. ID and neuro on board 2. +murmur- as per patient she has no hx of murmur but is listed in from chart last month has known . will need to f/u with PMD to monitor 3. CKD- at baseline 4. DM- hold oral agents. cont iss and bgm, Lantus hs 5. DVT ppx- hep sq 6. spoke with son present at bedside. all questions answered
--- NOTE | 2018-07-14 14:32 | CON.ID ---
Consult Consult Specialty:: infectious diseases Referred by:: hospitalist Reason for Consultation:: brain abscess - History of Present Illness Chief Complaint: headache weakness History of Present Illness: 68 year old female, with a significant past medical history of HTN, HLD, IDDM, CKD stage III, Moderate aortic stenosis, Breast Ca (s/p lumpectomy, radiation therapy and endocrine therapy), who presents to the emergency department from neurologist office to r/o rule out a cerebral abscess. As per patients neurologist, she was admitted in the [facility] for tooth infection and given unknown antibiotics. Patient was evaluated in the ED 2 weeks ago and treated for a UTI. She denies recent chest pain or shortness of breath. patients son with her in the room and according to him she is also ahving photophobia very weak - History Source History Provided By: Patient, Family Member Limitations to Obtaining History: Language Barrier - Alcohol/Substance Use Hx Alcohol Use: No - Smoking History Smoking history: Unknown if ever smoked Have you smoked in the past 12 months: No Aproximately how many cigarettes per day: 2,010 Home Medications - Allergies Allergies/Adverse Reactions: Allergies Allergy/AdvReac Type Severity Reaction Status Date / Time No Known Drug Allergies Allergy Verified 07/03/18 15:23 - Home Medications Home Medications: Ambulatory Orders Alendronate Sodium [Fosamax] 70 mg PO WEEKLY 01/02/15 Aspirin [ASA -] 81 mg PO DAILY 01/02/15 Atorvastatin Ca [Lipitor] 80 mg PO HS 01/02/15 Calcium Carbonate/Vitamin D3 [Calcium 600-Vit D3 800 Caplet] 1 each PO DAILY Chlorthalidone 25 mg PO DAILY 01/02/15 Famotidine 40 mg PO DAILY 01/02/15 Insulin Glargine,Hum.rec.anlog [Lantus (10mL VIAL) -] 50 units SQ HS 01/02/15 Lisinopril [Prinivil -] 40 mg PO DAILY 01/02/15 Metoprolol Tartrate 50 mg PO BID 01/02/15 Nifedipine [Nifedipine ER] 60 mg PO BID 01/02/15 Clopidogrel Bisulfate [Clopidogrel] 75 mg PO DAILY 07/03/18 Dulaglutide [Trulicity] 0.75 mg SQ WEEKLY 07/03/18 Fluticasone Prop 0.05% Nasal [Flonase -] 1 - 2 spray NS DAILY 07/03/18 Review of Systems - Review of Systems Constitutional: reports: Malaise, Weakness Eyes: reports: No Symptoms HENT: reports: No Symptoms Neck: reports: No Symptoms Cardiovascular: reports: No Symptoms Respiratory: reports: No Symptoms Gastrointestinal: reports: No Symptoms Genitourinary: reports: No Symptoms Musculoskeletal: reports: No Symptoms Integumentary: reports: No Symptoms Neurological: reports: Other (headache) Endocrine: reports: No Symptoms Hematology/Lymphatic: reports: No Symptoms Psychiatric: reports: No Symptoms Physical Exam Vital Signs: Vital Signs Temperature 98.0 F 07/14/18 13:00 Pulse Rate 71 07/14/18 13:00 Respiratory Rate 16 07/14/18 09:00 Blood Pressure 102/55 L 07/14/18 13:00 O2 Sat by Pulse Oximetry (%) 98 07/14/18 06:23 Constitutional: Yes: Calm, Mild Distress Eyes: Yes: Conjunctiva Clear HENT: Yes: Atraumatic, Normocephalic Neck: Yes: Supple, Trachea Midline Cardiovascular: Yes: Regular Rate and Rhythm Respiratory: Yes: Regular, CTA Bilaterally Gastrointestinal: Yes: Normal Bowel Sounds, Soft Musculoskeletal: Yes: WNL Extremities: Yes: WNL Neurological: Yes: Alert, Oriented Psychiatric: Yes: Alert, Oriented Labs: CBC, BMP 07/14/18 05:30 07/14/18 05:30 Imaging - Results Cat Scan: Report Reviewed, Image Reviewed MRI: Report Reviewed, Image Reviewed Assessment/Plan this patient who went to [facility] with probably tooth abscess who developed infection post tooth removal followed by multiple problems including photophobia and was seen here in the er and treated for uti and then seen by and a suspicion of cerebral abscess is present as she was found to ahve a mass on the mri will start patient on abx for now empiric broad spectrum abx will await for further imaging as per neurology patient also might need biopsy of the lesion once we have all the findings will decide further
--- NOTE | 2018-07-14 14:42 | EKG ---
Test Reason : Blood Pressure : / mmHG Vent. Rate : 077 BPM Atrial Rate : 077 BPM P-R Int : 184 ms QRS Dur : 098 ms QT Int : 388 ms P-R-T Axes : 056 041 -31 degrees QTc Int : 439 ms NORMAL SINUS RHYTHM POSSIBLE LEFT ATRIAL ENLARGEMENT T WAVE ABNORMALITY, CONSIDER INFERIOR ISCHEMIA ABNORMAL ECG WHEN COMPARED WITH ECG OF 03-JUL-2018 16:04, NO SIGNIFICANT CHANGE WAS FOUND Confirmed by Lobo Cates ([id number]) on 07/14/2018 2:41:59 PM Referred By: Confirmed By:Lobo Cates
[2018-07-14] MEDS ORDERED: VANCOMYCIN HCL 1,250 MG in DEXTROSE 5%-WATER - 250 ML IVPB SCH (14:45)
--- NOTE | 2018-07-14 14:53 | PN ---
Physical Exam: SUBJECTIVE: Patient seen and examined at bedside. no acute events. denies fever , chills, cp , sob, n/v/d OBJECTIVE: Vital Signs Period Temp Pulse Resp BP Sys/Alvares Pulse Ox Last 24 Hr 97.9 F-98.4 F 66-77 16-20 102-117/51-59 95-98 GENERAL: Awake, lethargic, and fully oriented, NAD HEAD: Normal with no signs of gross trauma. EYES: R. Eye ptosis. Pt. endorses being able to see out of right eye. Left eye unremarkable. EARS, NOSE, THROAT: nares patent, oropharynx clear without exudates. Moist mucous membranes. NECK: Normal range of motion, supple without lymphadenopathy, JVD, or masses. LUNGS: CTAB HEART: Grade III Systolic murmur, regular rate and rhythm, with S1 and S2 ABDOMEN: Soft, nontender, not distended, normoactive bowel sounds, no guarding, no rebound, no masses. MUSCULOSKELETAL: Normal range of motion at all joints. No bony deformities or tenderness. No CVA tenderness. UPPER EXTREMITIES: 2+ radial pulses, warm, well-perfused. No cyanosis. No clubbing. No peripheral edema. 5/5 upper extremity strength LOWER EXTREMITIES: 2+ dorsal pedal pulses, warm, well-perfused. No calf tenderness. No peripheral edema. Unable to lift legs off bed for more than 5 seconds because of pain in knees NEUROLOGICAL: Lethargic. sensation stresngth grossly intact SKIN: Warm, dry, normal turgor, no rashes or lesions noted, normal capillary refill. Laboratory Results - last 24 hr 07/13/18 07/13/18 07/13/18 17:19 17:19 21:05 WBC 5.9 RBC 4.85 Hgb 11.9 Hct 37.4 MCV 77.2 L MCH 24.6 L MCHC 31.9 L RDW 18.8 H Plt Count 173 D MPV 9.2 Absolute Neuts (auto) 3.2 Neutrophils % 55.3 Lymphocytes % 37.9 D Monocytes % 4.6 Eosinophils % 1.4 Basophils % 0.8 Nucleated RBC % 0 ESR 8 Sodium 136 Potassium 4.3 Chloride 102 Carbon Dioxide 27 Anion Gap 8 BUN 28 H Creatinine 1.5 H Creat Clearance w eGFR 34.53 POC Glucometer Random Glucose 205 H Calcium 9.4 Phosphorus Magnesium Total Bilirubin 0.3 AST 17 ALT 21 Alkaline Phosphatase 132 H C-Reactive Protein < 0.3 Total Protein 7.7 Albumin 3.8 07/14/18 07/14/18 07/14/18 05:30 05:30 06:54 WBC 5.5 RBC 4.67 Hgb 11.1 Hct 35.9 MCV 76.9 L MCH 23.9 L MCHC 31.0 L RDW 18.0 H Plt Count 156 MPV 9.2 Absolute Neuts (auto) 2.4 Neutrophils % 43.6 D Lymphocytes % 46.8 H D Monocytes % 7.5 Eosinophils % 1.7 Basophils % 0.4 Nucleated RBC % 0 ESR Sodium 136 Potassium 4.0 Chloride 103 Carbon Dioxide 28 Anion Gap 5 L BUN 29 H Creatinine 1.4 H Creat Clearance w eGFR 37.39 POC Glucometer 153 Random Glucose 157 H Calcium 9.3 Phosphorus 4.7 Magnesium 2.4 Total Bilirubin AST ALT Alkaline Phosphatase C-Reactive Protein Total Protein Albumin 07/14/18 11:54 WBC RBC Hgb Hct MCV MCH MCHC RDW Plt Count MPV Absolute Neuts (auto) Neutrophils % Lymphocytes % Monocytes % Eosinophils % Basophils % Nucleated RBC % ESR Sodium Potassium Chloride Carbon Dioxide Anion Gap BUN Creatinine Creat Clearance w eGFR POC Glucometer 126 Random Glucose Calcium Phosphorus Magnesium Total Bilirubin AST ALT Alkaline Phosphatase C-Reactive Protein Total Protein Albumin Active Medications Generic Name Dose Route Start Last Admin Trade Name Freq PRN Reason Stop Dose Admin Aspirin 81 mg 07/14/18 10:00 07/14/18 09:06 Asa - PO 81 mg DAILY CECILIO Administration Atorvastatin Calcium 80 mg 07/14/18 22:00 Lipitor - PO HS CECILIO Chlorthalidone 25 mg 07/14/18 10:00 07/14/18 09:06 Hygroton - PO 25 mg DAILY CECILIO Administration Clopidogrel Bisulfate 75 mg 07/14/18 10:00 07/14/18 09:07 Plavix - PO 75 mg DAILY CECILIO Administration Fluticasone Propionate 1 spray 07/14/18 10:00 Flonase - NS DAILY [facility] Heparin Sodium (Porcine) 5,000 unit 07/14/18 10:00 07/14/18 09:06 Heparin - SQ 5,000 unit BID CECILIO Administration Meropenem 1 gm/ Dextrose 100 mls @ 200 mls/hr 07/13/18 21:30 04/02/19 09:06 IVPB 200 mls/hr Q12H CECILIO Administration As Directed Insulin Aspart 1 vial 07/14/18 07:00 07/14/18 12:01 Novolog Vial Sliding Scale - SQ Not Given TIDAC [facility] Protocol Lisinopril 40 mg 07/14/18 10:00 07/14/18 09:07 Prinivil PO 40 mg DAILY CECILIO Administration Metoprolol Tartrate 50 mg 07/14/18 10:00 07/14/18 09:06 Lopressor - PO 50 mg BID CECILIO Administration Nifedipine 60 mg 07/14/18 10:00 07/14/18 09:07 Procardia Xl - PO 60 mg BID CECILIO Administration Ranitidine HCl 300 mg 07/14/18 10:00 07/14/18 09:07 Zantac - PO 300 mg DAILY CECILIO Administration ASSESSMENT/PLAN: 68 y.o. Hungarian-speaking F w/ PMHx. of HTN, HLD, CKD, Aortic Stenosis, Breast Ca s/p lumpectomy, CAD, and CVA? presented to the ER for persistent dizziness and blurred vision with concerns for cerebral abscess #Suspected Cerebral Abscess Started on IV Abx (Vanco, Merrem and Clindamycin)- likely causative agents are Strep and Staph from dental procedure, no documentation of more common agents in the [place] other than parasites. clinda dcd c/w empiric vanc/meropenem ESR/CRP nl No elevated WBCs, afebrile- however up to 50% of Pts. with abscess can present with only focal neurological deficits and headaches f/u Rpt MRI w/ con MRI from 07/03/18 showed 4.8mm aneurysm of R. 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 Engle reads an abscess. ID Consult Dr. Stout Neuro consult Dr. Engle #IDDM hold home oral meds ISS TIDAC BGM TIDAC #CKD - baseline ~1.5 #+murmur- as per patient she has no hx of murmur but is listed in from chart last month has known . will need to f/u with PMD to monitor #HTN Medication reconciliation- as Pt. has Aortic stenosis, care to avoid large swings in BP. c/w Nifedipine, Metoprolol, and Lisinopril #CAD/PAD/HLD c/w Plavix, ASA and Atorvastatin #FEN encourage PO intake monitor electrolytes and replete as needed Diabetic/Na restricted Diet #DVT ppx. Hep 5k BID SQ home dose H2 desi Dispo tele Visit type - Emergency Visit Emergency Visit: Yes ED Registration Date: 07/13/18 Care time: The patient presented to the Emergency Department on the above date and was hospitalized for further evaluation of their emergent condition. - New Patient This patient is new to me today: Yes Date on this admission: 07/14/18 - Critical Care Critical Care patient: No
[2018-07-14] MEDS: FLUTICASONE PROP 0.05% 16 GM NASAL SPRAY NS SCH (15:30)
[2018-07-14] MEDS ORDERED: ONDANSETRON 4 MG/2 ML VIAL IVPB ONE (15:33)
[2018-07-14] MEDS ORDERED: SUMATRIPTAN SUCCINATE 6 MG/0.5 ML VIAL SQ ONE (16:00)
--- NOTE | 2018-07-14 17:50 | CONSULT ---
Consult - text type - Consultation Consultation Note: NEUROLOGY CONSULTATION is greatly appreciated: Events reviewed and discussed with staff and RAUL Arthur. ID consult read and appreciated. Pt last seen by me in consultation 07/03/18 and seen in office for follow up . Pt examined with her son at the bedside who aides in translation. This 68 yo RH woman with h/o HTN, DM, Chol, ASHD s/p Rx of breast cancer. Maintained on alendronate, asa, atorvastatin, chlorthalidone, famotidine, insulin, lisinopril, metoprolol (50 BID), nifedipine, clopidogrel. She was seen by me in the ED on 07/03/18 3 weeks after she was hospitalized in the [facility] for dental abscess treated with IV antibiotics. In the ED she was found ttpo had a pupillary sparing CN III palsy which her son said began in the DR around the time of the hospitalization. MRI at that time showed a right paramedian brain stem infarct and a right thalamic lesion felt to be c/w resolving bleed. PComm aneurysm was not found. She was discharged from hospital with on keflex for UTI. When seen in the 0ffice (07/13/18) she still complains of "pressure" under right eye with associated P/P/N/kinesiophobia and vertiginous symptoms as well as unsteady gait requiring assistance. History of intermittent headaches previously. Currently broad-spectrumed on Meropenam, clindamycin and vancomycin pending MRI with contrast for presumed, partially treated cerebral abscess. MRI/MRI of brain C- (07/04/18): noted for R brainstem infarct, R thalmus lesion 1.5mm ?cerebral abscess, also 4.8 mm R MCA aneurysm MCV 77 BUN/CR 28/1.5 VIPIN: Neck supple. No bruits. Cor reg. NEURO: Awake, alert. Ox 3. MS, Speech: normal CN II-XII: Right ptosis. R exotropia. No adduction, elevation or depression OD. [id number]. R orbit internally rotates. Motor: No drift or tremor. Normal strength, tone and bulk. Normal reflexes except absent AJ's. Toes downgoing. Coord: No FTN dystaxia Sensory: Reduced vibration feet. IMP: 1. 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 Exacerbation of Migraine Headaches 2/2 Toxic-Metabolic Encephalopathy (cerebral abscess) 3. Diabetic peripheral neuropathy SUGGEST: Await MRI of brain (C+/C-) to compare to 07/03/18 in evaluation of cerebral abscess Continue broad-spectrum antibiotics at this time Continue ASA, Plavix and Statin Continue metoprolol 50 mg BID for migraine prophylaxis Provided sumatriptan 6 mg IVP x 1, Zofran 4 mg IVP with relief of acute migraine Continue sumatriptan 50-100 mg prn for acute migraine Thank you very much, Lizandro Engle MD
[2018-07-14] MEDS: ATORVASTATIN CA 80 MG TABLET (FP) PO SCH (21:40)
[2018-07-14] MEDS ORDERED: DEXAMETHASONE SOD PHOSPHATE 10 MG/1 ML VIAL IVPUSH ONE (22:45)
[2018-07-15] MEDS: DEXAMETHASONE SOD PHOSPHATE 4 MG/1 ML VIAL IVPUSH SCH ×5 (06:37→22:14)
[2018-07-15] MEDS: INSULIN SLIDING SCALE (NOVOLOG) 1 VIAL SQ SCH ×3 (06:37→17:40)
[2018-07-15 07:54] LABS: HEMATOCRIT 34.9 % (32.4-45.2); HEMOGLOBIN 11.3 GM/dL (10.7-15.3); MCH 24.7 pg (25.7-33.7); MCHC 32.3 g/dl (32.0-36.0); MEAN CELL VOLUME 76.3 fl (80-96); MEAN PLT VOLUME 9.5 fl (7.5-11.1); PLATELET COUNT 160 K/MM3 (134-434); RBC 4.58 M/mm3 (3.60-5.2); RDW 18.3 % (11.6-15.6); WHITE BLOOD COUNT 5.5 K/mm3 (4.0-10.0)
[2018-07-15 08:29] LABS: ANION GAP 7 MMOL/L (8-16); BLOOD UREA NITROGEN 26 mg/dL (7-18); CALCIUM 9.2 mg/dL (8.5-10.1); CHLORIDE 104 mmol/L (98-107); CO2 26 mmol/L (21-32); CREATININE 1.5 mg/dL (0.55-1.3); GLUCOSE,RANDOM 241 mg/dL (74-106); MAGNESIUM 2.4 mg/dL (1.8-2.4); PHOSPHOROUS 2.7 mg/dL (2.5-4.9); POTASSIUM 4.9 mmol/L (3.5-5.1); SODIUM 137 mmol/L (136-145)
[2018-07-15] MEDS ORDERED: PT OWN MED DRAWER 7, Y5N ONE (09:13)
[2018-07-15] MEDS: CLOPIDOGREL BISULFATE 75 MG TABLET (FP) PO SCH (09:39)
[2018-07-15] MEDS: METOPROLOL TARTRATE 50 MG TABLET (FP) PO SCH ×2 (09:39→21:55)
[2018-07-15] MEDS: RANITIDINE HCL 150 MG TABLET (FP) PO SCH (09:39)
[2018-07-15] MEDS: NIFEdipine E.R 60 MG TABLET (UD) PO SCH ×2 (09:40→21:55)
[2018-07-15] MEDS: HEPARIN NA (PORCINE) 5,000 UNITS/ML 1ML VIAL SQ SCH ×2 (09:40→21:55)
[2018-07-15] MEDS: ASPIRIN 81 MG CHEWABLE TABLETS PO SCH (09:40)
[2018-07-15] MEDS: LISINOPRIL 20 MG TABLET (FP) PO SCH (09:40)
[2018-07-15] MEDS: MEROPENEM 1 GM in DEXTROSE 5%-WATER 100 ML IVPB SCH (09:51)
[2018-07-15] MEDS: CHLORTHALIDONE 25 MG TABLET PO SCH (09:51)
--- NOTE | 2018-07-15 11:33 | PN ---
Physical Exam: SUBJECTIVE: Patient seen and examined at bedside. overnight prelim MRI no abscess but +vasogenic edema, pt given 10mg decadron. denies fever, chills, cp , sob, n/v/d. OBJECTIVE: Vital Signs Period Temp Pulse Resp BP Sys/Alvares Pulse Ox Last 24 Hr 97.8 F-98.8 F 60-78 18-18 100-135/47-69 97 GENERAL: Awake, lethargic, and fully oriented, NAD HEAD: NCAT EYES: R. Eye ptosis and unable to cross midline on left lateral gaze. R. eye unable to look downward. R. pupil has sluggish reaction to light. Pt. endorses being able to see out of right eye. Left eye unremarkable. EARS, NOSE, THROAT: nares patent, oropharynx clear without exudates. MMM NECK: Normal range of motion, supple without lymphadenopathy, JVD, or masses. LUNGS: CTAB HEART: Grade III Systolic murmur, RRR, with S1 and S2 ABDOMEN: Soft, NTND, normoactive bowel sounds, no guarding, no rebound, no masses. MUSCULOSKELETAL: Normal range of motion at all joints. No bony deformities or tenderness. No CVA tenderness. UPPER EXTREMITIES: 2+ radial pulses, warm, well-perfused. No cyanosis. No clubbing. No peripheral edema. 5/5 upper extremity strength LOWER EXTREMITIES: 2+ dorsal pedal pulses, warm, well-perfused. No calf tenderness. No peripheral edema. Unable to lift legs off bed for more than 5 seconds because of pain in knees NEUROLOGICAL: Lethargic. sensation stresngth grossly intact SKIN: Warm, dry, normal turgor, no rashes or lesions noted, normal capillary refill. Laboratory Results - last 24 hr 07/14/18 07/14/18 07/15/18 11:54 16:28 06:36 WBC RBC Hgb Hct MCV MCH MCHC RDW Plt Count MPV Sodium Potassium Chloride Carbon Dioxide Anion Gap BUN Creatinine Creat Clearance w eGFR POC Glucometer 126 148 238 Random Glucose Calcium Phosphorus Magnesium 07/15/18 07/15/18 06:50 06:50 WBC 5.5 RBC 4.58 Hgb 11.3 Hct 34.9 MCV 76.3 L MCH 24.7 L MCHC 32.3 RDW 18.3 H Plt Count 160 MPV 9.5 Sodium 137 Potassium 4.9 Chloride 104 Carbon Dioxide 26 Anion Gap 7 L BUN 26 H Creatinine 1.5 H Creat Clearance w eGFR 34.53 POC Glucometer Random Glucose 241 H Calcium 9.2 Phosphorus 2.7 Magnesium 2.4 Active Medications Generic Name Dose Route Start Last Admin Trade Name Freq PRN Reason Stop Dose Admin Aspirin 81 mg 07/14/18 10:00 07/15/18 09:40 Asa - PO 81 mg DAILY CECILIO Administration Atorvastatin Calcium 80 mg 07/14/18 22:00 07/14/18 21:40 Lipitor - PO 80 mg HS CECILIO Administration Chlorthalidone 25 mg 07/14/18 10:00 07/15/18 09:51 Hygroton - PO 25 mg DAILY CECILIO Administration Clopidogrel Bisulfate 75 mg 07/14/18 10:00 07/15/18 09:39 Plavix - PO 75 mg DAILY CECILIO Administration Dexamethasone Sodium Phosphate 4 mg 07/15/18 06:00 07/15/18 09:39 Decadron Injection - IVPUSH 4 mg Q6H-IV CECILIO Administration Fluticasone Propionate 1 spray 07/14/18 10:00 07/14/18 15:30 Flonase - NS Not Given DAILY [facility] Heparin Sodium (Porcine) 5,000 unit 07/14/18 10:00 07/15/18 09:40 Heparin - SQ 5,000 unit BID [facility] Administration Insulin Aspart 1 vial 07/14/18 07:00 07/15/18 06:37 Novolog Vial Sliding Scale - SQ 2 units TIDAC [facility] Administration Protocol Lisinopril 40 mg 07/14/18 10:00 07/15/18 09:40 Prinivil PO 40 mg DAILY CECILIO Administration Metoprolol Tartrate 50 mg 07/14/18 10:00 07/15/18 09:39 Lopressor - PO 50 mg BID CECILIO Administration Nifedipine 60 mg 07/14/18 10:00 07/15/18 09:40 Procardia Xl - PO 60 mg BID CECILIO Administration Ranitidine HCl 300 mg 07/14/18 10:00 07/15/18 09:39 Zantac - PO 300 mg DAILY CECILIO Administration ASSESSMENT/PLAN: 68 y.o. German-speaking F w/ PMHx. of HTN, HLD, CKD, Aortic Stenosis, Breast Ca s/p lumpectomy, CAD, and CVA? presented to the ER for persistent dizziness and blurred vision with concerns for cerebral abscess #Suspected Cerebral Abscess - per prelim MRI no abscess but +vasogenic edema f/u official report, Neuro feels may still be abscess and so c/w abx s/p Meropenum and Clindamycin c/w vanc/zosyn, ID recs appreciated ESR/CRP nl MRI from 07/03/18 showed 4.8mm aneurysm of R. 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 Engle reads an abscess. ID Consult Dr. Stout Neuro consult Dr. Engle #IDDM hold home oral meds ISS TIDAC BGM TIDAC levemir 8U HS while on steroids #CKD - baseline ~1.5 #+murmur- as per patient she has no hx of murmur but is listed in from chart last month has known . will need to f/u with PMD to monitor #HTN Medication reconciliation- as Pt. has Aortic stenosis, care to avoid large swings in BP. c/w Nifedipine, Metoprolol, and Lisinopril #CAD/PAD/HLD c/w Plavix, ASA and Atorvastatin #FEN encourage PO intake monitor electrolytes and replete as needed Diabetic/Na restricted Diet #DVT ppx. Hep 5k BID SQ home dose H2 desi Dispo transfer to m/s PT eval Visit type - Emergency Visit Emergency Visit: Yes ED Registration Date: 07/13/18 Care time: The patient presented to the Emergency Department on the above date and was hospitalized for further evaluation of their emergent condition. - New Patient This patient is new to me today: Yes Date on this admission: 07/15/18 - Critical Care Critical Care patient: No
[2018-07-15] MEDS: FLUTICASONE PROP 0.05% 16 GM NASAL SPRAY NS SCH (11:40)
--- NOTE | 2018-07-15 11:57 | PN ---
Progress Note, Physician - Current Medication List Current Medications: Active Medications Aspirin (Asa -) 81 mg PO DAILY [facility] Last Admin: 07/15/18 09:40 Dose: 81 mg Atorvastatin Calcium (Lipitor -) 80 mg PO HS [facility] Last Admin: 07/14/18 21:40 Dose: 80 mg Chlorthalidone (Hygroton -) 25 mg PO DAILY [facility] Last Admin: 07/15/18 09:51 Dose: 25 mg Clopidogrel Bisulfate (Plavix -) 75 mg PO DAILY [facility] Last Admin: 07/15/18 09:39 Dose: 75 mg Dexamethasone Sodium Phosphate (Decadron Injection -) 4 mg IVPUSH Q6H-IV [facility] Last Admin: 07/15/18 09:39 Dose: 4 mg Fluticasone Propionate (Flonase -) 1 spray NS DAILY [facility] Last Admin: 07/15/18 11:40 Dose: Not Given Heparin Sodium (Porcine) (Heparin -) 5,000 unit SQ BID [facility] Last Admin: 07/15/18 09:40 Dose: 5,000 unit Vancomycin HCl 1,250 mg/ (Dextrose) 250 mls @ 250 mls/2 hr IVPB Q24H [facility]; Protocol Piperacillin Sod/Tazobactam (Sod 2.25 gm/ Dextrose) 50 mls @ 100 mls/hr IVPB Q6H-IV [facility]; Protocol Insulin Aspart (Novolog Vial Sliding Scale -) 1 vial SQ TIDAC [facility]; Protocol Last Admin: 07/15/18 11:44 Dose: 2 units Lisinopril (Prinivil) 40 mg PO DAILY [facility] Last Admin: 07/15/18 09:40 Dose: 40 mg Metoprolol Tartrate (Lopressor -) 50 mg PO BID [facility] Last Admin: 07/15/18 09:39 Dose: 50 mg Nifedipine (Procardia Xl -) 60 mg PO BID [facility] Last Admin: 07/15/18 09:40 Dose: 60 mg Ranitidine HCl (Zantac -) 300 mg PO DAILY [facility] Last Admin: 07/15/18 09:39 Dose: 300 mg - Objective Vital Signs: Vital Signs Temperature 98.8 F 07/15/18 06:41 Pulse Rate 65 07/15/18 06:41 Respiratory Rate 18 07/15/18 06:41 Blood Pressure 100/47 L 07/15/18 06:41 O2 Sat by Pulse Oximetry (%) 97 07/14/18 22:00 Labs: CBC, BMP 07/15/18 06:50 07/15/18 06:50
[2018-07-15] MEDS ORDERED: PIPERACILLIN/TAZOBACTAM 2.25 GM VIAL IVPB ONE ×3 (12:37→21:47)
[2018-07-15] MEDS ORDERED: DEXTROSE 5%-WATER - 50 ML IVPB ONE ×3 (12:37→21:47)
[2018-07-15] MEDS: PIPERACILLIN/TAZOB 2.25 GM 2.25 GM in DEXTROSE 5%-WATER - 50 ML IVPB SCH ×3 (12:39→21:54)
--- NOTE | 2018-07-15 12:55 | PN ---
Teaching Attending Note Name of Resident: Abiodun Cadet ATTENDING PHYSICIAN STATEMENT I saw and evaluated the patient. I reviewed the resident's note and discussed the case with the resident. I agree with the resident's findings and plan as documented. SUBJECTIVE:modest improvement. subha CP, SOB, fever, chills, N/V/C/D MRI prelim showing vasogenic edema and started on dex OBJECTIVE: Last Vital Signs Temp Pulse Resp BP Pulse Ox 98.8 F 65 18 100/47 L 97 07/15/18 06:41 07/15/18 06:41 07/15/18 06:41 07/15/18 06:41 07/14/18 22:00 General. NAD HEENT R eye unable to medially adduct, stops at midline, no nystagmus. PERRL CV S1 S2 +murmur Lungs CTA B/L no wheezing/rales/rhonchi ASSESSMENT AND PLAN: 68yo F with PMH HTN, DM, Dyslipidemia, CKD, breast ca s/p lumpectomy presented to the ER for persistent dizzyness and blurred vision with concerns for cerebral abscess 1. Dizznesss- r/o cerbral abscess. prelim MRI showing edema, no mass is seen, however on conversation with ID who spoke with neuro there is concern of abscess formation. will cont empiric abx. may need bx. will await official read. on dex Q6H. ID and neuro on board 2. +murmur- as per patient she has no hx of murmur but is listed in from chart last month has known . will need to f/u with PMD to monitor 3. CKD- at baseline 4. DM- hold oral agents. cont iss and bgm, Lantus hs 5. DVT ppx- hep sq
[2018-07-15] MEDS: VANCOMYCIN HCL 1,250 MG in DEXTROSE 5%-WATER - 250 ML IVPB SCH (13:15)
--- NOTE | 2018-07-15 21:28 | PN ---
Progress Note (short form) - Note Progress Note: NEUROLOGY FOLLOW-UP: Events and MRI with contrast reviewed. Pt examined. Pt. was OO bed today with PT and walker. On triple antibiotics and started on Decadron. Pt feels much better today with decreased Headache (improved yesterday after Sumatriptan Rx.) MRI shows ring enhancing right thalamic lesion with no increase in size and no mass effect. Right pontine paramedian lesion is unchanged. Question whether it is contiguous with the thalamic lesion. Exam: Pt is much more alert, in NAD. Min left drift. Right eye findings unchanged Gait Improved with mild left circumduction. 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 Repeat MRI in 1 week and after full course of antibiotics. Thank you very much, Lizandro Engle MD
[2018-07-15] MEDS: ATORVASTATIN CA 80 MG TABLET (FP) PO SCH (21:55)
[2018-07-15] MEDS ORDERED: INSULIN (LEVEMIR) 100 UNITS/ML UNITS SQ SCH ×2 (22:00)
[2018-07-16] MEDS ORDERED: DEXTROSE 5%-WATER - 50 ML IVPB ONE ×4 (02:05→21:56)
[2018-07-16] MEDS ORDERED: PIPERACILLIN/TAZOBACTAM 2.25 GM VIAL IVPB ONE ×4 (02:05→21:56)
[2018-07-16] MEDS: PIPERACILLIN/TAZOB 2.25 GM 2.25 GM in DEXTROSE 5%-WATER - 50 ML IVPB SCH ×4 (02:14→22:12)
[2018-07-16] MEDS ORDERED: INSULIN (NOVOLOG) ASPART 100 UNITS/ML 10ML VIAL ONE (06:48)
[2018-07-16] MEDS: INSULIN SLIDING SCALE (NOVOLOG) 1 VIAL SQ SCH ×3 (06:50→17:00)
[2018-07-16 08:08] LABS: ANION GAP 9 MMOL/L (8-16); BLOOD UREA NITROGEN 37 mg/dL (7-18); CHLORIDE 102 mmol/L (98-107); CO2 26 mmol/L (21-32); CREATININE 1.6 mg/dL (0.55-1.3); GLUCOSE,RANDOM 240 mg/dL (74-106); POTASSIUM 4.5 mmol/L (3.5-5.1); SODIUM 136 mmol/L (136-145)
[2018-07-16] MEDS ORDERED: PT OWN MED DRAWER 7, Y5N ONE ×5 (09:46→23:50)
[2018-07-16] MEDS: DEXAMETHASONE SOD PHOSPHATE 4 MG/1 ML VIAL IVPUSH SCH ×2 (10:13→22:16)
[2018-07-16] MEDS: CLOPIDOGREL BISULFATE 75 MG TABLET (FP) PO SCH (10:15)
[2018-07-16] MEDS: ASPIRIN 81 MG CHEWABLE TABLETS PO SCH (10:16)
[2018-07-16] MEDS: LISINOPRIL 20 MG TABLET (FP) PO SCH (10:16)
[2018-07-16] MEDS: RANITIDINE HCL 150 MG TABLET (FP) PO SCH (10:16)
[2018-07-16] MEDS: METOPROLOL TARTRATE 50 MG TABLET (FP) PO SCH ×2 (10:16→22:16)
[2018-07-16] MEDS: HEPARIN NA (PORCINE) 5,000 UNITS/ML 1ML VIAL SQ SCH ×2 (10:30→22:16)
[2018-07-16] MEDS: NIFEdipine E.R 60 MG TABLET (UD) PO SCH (10:31)
[2018-07-16] MEDS: FLUTICASONE PROP 0.05% 16 GM NASAL SPRAY NS SCH (10:32)
--- NOTE | 2018-07-16 11:29 | PN ---
Physical Exam: SUBJECTIVE: Patient seen and examined at bedside. no acute events overnight. MRI +vasogenic edema, abscess vs neoplasm vs demyelinating disease. denies fever , chills, cp , sob, n/v/d. OBJECTIVE: Vital Signs Period Temp Pulse Resp BP Sys/Alvares Pulse Ox Last 24 Hr 97.8 F-98.9 F 61-74 18-20 109-136/50-69 98 GENERAL: Awake, lethargic, and fully oriented, NAD HEAD: NCAT EYES: R. Eye ptosis and unable to cross midline on left lateral gaze. R. eye unable to look downward. R. pupil has sluggish reaction to light. Pt. endorses being able to see out of right eye. Left eye unremarkable. EARS, NOSE, THROAT: nares patent, oropharynx clear without exudates. MMM NECK: Normal range of motion, supple without lymphadenopathy, JVD, or masses. LUNGS: CTAB HEART: Grade III Systolic murmur, RRR, with S1 and S2 ABDOMEN: Soft, NTND, normoactive bowel sounds, no guarding, no rebound, no masses. MUSCULOSKELETAL: Normal range of motion at all joints. No bony deformities or tenderness. No CVA tenderness. UPPER EXTREMITIES: 2+ radial pulses, warm, well-perfused. No cyanosis. No clubbing. No peripheral edema. 5/5 upper extremity strength LOWER EXTREMITIES: 2+ dorsal pedal pulses, warm, well-perfused. No calf tenderness. No peripheral edema. NEUROLOGICAL: Lethargic. sensation strength grossly intact SKIN: Warm, dry, normal turgor, no rashes or lesions noted, normal capillary refill. Laboratory Results - last 24 hr 07/15/18 07/15/18 07/15/18 11:33 17:26 22:02 Sodium Potassium Chloride Carbon Dioxide Anion Gap BUN Creatinine Creat Clearance w eGFR POC Glucometer 241 365 275 Random Glucose Calcium Random Vancomycin 07/16/18 07/16/18 07/16/18 06:23 06:35 10:10 Sodium 136 Potassium 4.5 Chloride 102 Carbon Dioxide 26 Anion Gap 9 BUN 37 H Creatinine 1.6 H Creat Clearance w eGFR 32.05 POC Glucometer 234 Random Glucose 240 H Calcium 9.0 Random Vancomycin 13.7 L Active Medications Generic Name Dose Route Start Last Admin Trade Name Freq PRN Reason Stop Dose Admin Aspirin 81 mg 07/14/18 10:00 07/16/18 10:16 Asa - PO 81 mg DAILY CECILIO Administration Atorvastatin Calcium 80 mg 07/14/18 22:00 07/15/18 21:55 Lipitor - PO 80 mg HS CECILIO Administration Chlorthalidone 25 mg 07/14/18 10:00 07/15/18 09:51 Hygroton - PO 25 mg DAILY CECILIO Administration Clopidogrel Bisulfate 75 mg 07/14/18 10:00 07/16/18 10:15 Plavix - PO 75 mg DAILY CECILIO Administration Dexamethasone Sodium Phosphate 4 mg 07/15/18 21:30 07/16/18 10:13 Decadron Injection - IVPUSH 4 mg Q12H CECILIO Administration Fluticasone Propionate 1 spray 07/14/18 10:00 07/16/18 10:32 Flonase - NS Not Given DAILY [facility] Heparin Sodium (Porcine) 5,000 unit 07/14/18 10:00 07/16/18 10:30 Heparin - SQ 5,000 unit BID CECILIO Administration Vancomycin HCl 1,250 mg/ 250 mls @ 166.667 mls/hr 07/15/18 12:00 07/15/18 13: 15 Dextrose IVPB 166.667 mls/hr Q24H CECILIO Administration Protocol Piperacillin Sod/Tazobactam 50 mls @ 100 mls/hr 07/15/18 12:00 07/16/18 09:40 Sod 2.25 gm/ Dextrose IVPB 100 mls/hr Q6H-IV CECILIO Administration Protocol Insulin Aspart 1 vial 07/14/18 07:00 07/16/18 06:50 Novolog Vial Sliding Scale - SQ 2 units TIDAC [facility] Administration Protocol Insulin Detemir 8 units 07/15/18 22:00 07/15/18 21:55 Levemir Vial SQ 8 units HS CECILIO Administration Lisinopril 40 mg 07/14/18 10:00 07/16/18 10:16 Prinivil PO 40 mg DAILY CECILIO Administration Metoprolol Tartrate 50 mg 07/14/18 10:00 07/16/18 10:16 Lopressor - PO 50 mg BID CECILIO Administration Nifedipine 60 mg 07/14/18 10:00 07/16/18 10:31 Procardia Xl - PO 60 mg BID CECILIO Administration Ranitidine HCl 300 mg 07/14/18 10:00 07/16/18 10:16 Zantac - PO 300 mg DAILY CECILIO Administration [id number] MRI/BRAIN MRI WITH CONTRAST 07/14/18 Rule out right thalamic abscess MRI of the brain without and following intravenous contrast. Multiplanar T1-T2 sequences were obtained followed by postcontrast T1 axial, coronal and sagittal images. 15 mL of ProHance was intravenously injected. Compared to prior MRI of the brain dated 07/03/2018 There is [id number] volume loss and ventricular dilatation. Previously visualized lesion in the right thalamus, medially is again seen measuring approximately 1.9 x 1.7 x 1.1 cm in craniocaudal, transverse and AP dimension with a necrotic center and moderate surrounding vasogenic edema that has worsened since see prior exam. Minimal mass effect on the adjacent right lateral wall of the third ventricle is present. No restricted diffusion is identified. An abscess is usually hyperintense on the diffusion weighted axial images. On the postcontrast images, peripheral enhancement is present. No other abnormal intracranial enhancement is seen. A large T2 hyperintense left periventricular lesion is again seen measuring 2.2 x 1.2 cm in AP and transverse dimension without interval change. Other small periventricular T2 hyperintense foci are again seen. There is no shift of the midline structures. The craniocervical junction appears unremarkable. Flow voids are present within the central intracranial arterial circulation. Previously noted approximately 5 mm aneurysm at the trifurcation of the right M1 segment is again seen with enhancement. Both orbits appear unremarkable. No suspicious bone marrow abnormal signal is identified. IMPRESSION: No significant interval change in the size of previously visualized necrotic- like lesion in the right thalamus, medially that demonstrates peripheral enhancement. Moderate surrounding vasogenic edema that has worsened since the prior examination. Differential diagnosis includes an abscess, considering the clinical history although no central restricted diffusion is present. Differential diagnosis also includes a neoplastic lesion or a demyelinating plaque. 2 x 1.2 cm left anterior periventricular T2 hyperintensity. Cannot rule out a demyelinating plaque. Other small periventricular T2 hyperintense foci are present likely on the basis of mild chronic microvascular ischemic disease changes [id number] MRI/BRAIN MRA W/O CONTRAST 07/14/18 MRI of the brain. 3-D [id number] technique the MR angiography of the intracranial circulation shows: The Posterior fossa circulation unremarkable with no evidence of basilar artery stenosis, dissection or occlusion. The visualized portion of the vertebral arteries are symmetric unremarkable. 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 Approximately 2 cm from its origin. No evidence of basilar [place] 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 No evidence of aneurysm of [place]. No evidence of basilar stenosis, dissection or occlusion. ASSESSMENT/PLAN: 68 y.o. [place]ican-speaking F w/ PMHx. of HTN, HLD, CKD, Aortic Stenosis, Breast Ca s/p lumpectomy, CAD, and CVA? presented to the ER for persistent dizziness and blurred vision with concerns for cerebral abscess #Suspected Cerebral Abscess - MRI 07/14/18 +vasogenic edema, abscess vs neopplasm vs demyelinating disease. s/p 10mg decadron per Neuro, Reduce decadron to 4 mg q 12 hrs (Lesion does not exhibit mass effect ) s/p Meropenum and Clindamycin c/w vanc/zosyn, ID recs appreciated pt will likely need further abx via PICC-line in SNF per neuro, Repeat MRI in 1 week and after full course of antibiotics. ESR/CRP nl MRI from 07/03/18 showed 4.8mm aneurysm of R. 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 Engle reads an abscess. ID Consult Dr. Stout Neuro consult Dr. Engle #IDDM hold home oral meds ISS TIDAC BGM TIDAC levemir 10U HS while on steroids #CKD - baseline ~1.5 #+murmur- as per patient she has no hx of murmur but is listed in from chart last month has known . will need to f/u with PMD to monitor #HTN Medication reconciliation- as Pt. has Aortic stenosis, care to avoid large swings in BP. c/w Nifedipine, Metoprolol, and Lisinopril #CAD/PAD/HLD c/w Plavix, ASA and Atorvastatin #FEN encourage PO intake monitor electrolytes and replete as needed Diabetic/Na restricted Diet #DVT ppx. Hep 5k BID SQ home dose H2 desi Dispo transfer to m/s PT eval Visit type - Emergency Visit Emergency Visit: Yes ED Registration Date: 07/13/18 Care time: The patient presented to the Emergency Department on the above date and was hospitalized for further evaluation of their emergent condition. - New Patient This patient is new to me today: Yes Date on this admission: 07/16/18 - Critical Care Critical Care patient: No
[2018-07-16] MEDS ORDERED: INSULIN (LEVEMIR) 100 UNITS/ML UNITS SQ SCH (11:34)
--- NOTE | 2018-07-16 11:42 | PN ---
Teaching Attending Note Name of Resident: Abiodun Cadet ATTENDING PHYSICIAN STATEMENT I saw and evaluated the patient. I reviewed the resident's note and discussed the case with the resident. I agree with the resident's findings and plan as documented. SUBJECTIVE:c/o HARPER. refused to answer any more questions at this time or participate in interview OBJECTIVE: Last Vital Signs Temp Pulse Resp BP Pulse Ox 98.2 F 61 18 114/62 98 07/16/18 08:00 07/16/18 08:00 07/16/18 08:00 07/16/18 08:00 07/15/18 22:00 refused physical exam ASSESSMENT AND PLAN: 68yo F with PMH HTN, DM, Dyslipidemia, CKD, breast ca s/p lumpectomy presented to the ER for persistent dizzyness and blurred vision with concerns for cerebral abscess 1. Dizznesss- MRI brain showing no change in size of necrotic like lesions in the R thalmus with surrounding vasogenic edema. could be abscess vs neoplastic lesion vs demylinating plaque. 2. +murmur- as per patient she has no hx of murmur but is listed in from chart last month has known . will need to f/u with PMD to monitor 3. CKD- at baseline 4. DM- hold oral agents. cont iss and bgm, Lantus hs 5. DVT ppx- hep sq
[2018-07-16] MEDS: VANCOMYCIN HCL 1,250 MG in DEXTROSE 5%-WATER - 250 ML IVPB SCH (12:13)
[2018-07-16] MEDS: CHLORTHALIDONE 25 MG TABLET PO SCH (12:50)
--- NOTE | 2018-07-16 18:03 | PN ---
Progress Note, Physician History of Present Illness: patient stable awake and alert headaches - Current Medication List Current Medications: Active Medications Aspirin (Asa -) 81 mg PO DAILY [facility] Atorvastatin Calcium (Lipitor -) 80 mg PO HS [facility] Chlorthalidone (Hygroton -) 25 mg PO DAILY [facility] Clopidogrel Bisulfate (Plavix -) 75 mg PO DAILY [facility] Dexamethasone Sodium Phosphate (Decadron Injection -) 4 mg IVPUSH Q12H CECILIO Last Admin: 07/16/18 10:13 Dose: 4 mg Fluticasone Propionate (Flonase -) 1 spray NS DAILY [facility] Heparin Sodium (Porcine) (Heparin -) 5,000 unit SQ BID [facility] Vancomycin HCl 1,250 mg/ (Dextrose) 250 mls @ 166.667 mls/hr IVPB Q24H [facility]; Protocol Last Admin: 07/16/18 12:13 Dose: 166.667 mls/hr Piperacillin Sod/Tazobactam (Sod 2.25 gm/ Dextrose) 50 mls @ 100 mls/hr IVPB Q6H-IV [facility]; Protocol Last Admin: 07/16/18 17:00 Dose: 100 mls/hr Insulin Aspart (Novolog Vial Sliding Scale -) 1 vial SQ TIDAC [facility]; Protocol Last Admin: 07/16/18 17:00 Dose: 3 units Insulin Detemir (Levemir Vial) 10 units SQ HS [facility] Lisinopril (Prinivil) 40 mg PO DAILY [facility] Metoprolol Tartrate (Lopressor -) 50 mg PO BID [facility] Nifedipine (Procardia Xl -) 60 mg PO BID [facility] Ranitidine HCl (Zantac -) 300 mg PO DAILY [facility] - Objective Vital Signs: Vital Signs Temperature 98 F 07/16/18 13:54 Pulse Rate 61 07/16/18 13:54 Respiratory Rate 18 07/16/18 13:54 Blood Pressure 120/57 L 07/16/18 13:54 O2 Sat by Pulse Oximetry (%) 98 07/15/18 22:00 Constitutional: Yes: No Distress, Calm Cardiovascular: Yes: Regular Rate and Rhythm Respiratory: Yes: Regular, CTA Bilaterally Gastrointestinal: Yes: Normal Bowel Sounds, Soft Musculoskeletal: Yes: WNL Extremities: Yes: WNL Neurological: Yes: Alert, Oriented, Other (headaches) Psychiatric: Yes: Alert, Oriented Labs: CBC, BMP 07/15/18 06:50 07/16/18 06:23 Assessment/Plan 68yo F with PMH HTN, DM, Dyslipidemia, CKD, breast ca s/p lumpectomy presented to the ER for persistent dizzyness and blurred vision with concerns for cerebral abscess patient improving plan we will continue abx therapy further plan awaited rest as per the team
[2018-07-16] MEDS ORDERED: SUMAtriptan SUCCINATE 50 MG TABLET PO PRN (19:40)
--- NOTE | 2018-07-16 19:46 | PN ---
Progress Note (short form) - Note Progress Note: NEUROLOGY FOLLOW-UP: Events discussed with staff. Son, Jose and family at bedside aiding in translation. ID consult read and appreciated. On triple antibiotics and Decadron. Did not do PT today due to "dizziness" and "fear of falling." Family concerned because pt was intermittently confused this AM, asking why her left her and needing to return home. Slept poorly last night due to L occipital "cramping" and R eye "pressure" with associated photophobia, phonophobia, nausea and dizziness. Notes periodic headaches since teenage years, however not this severe previously. ++ FH of son and daughter with headaches. BPs: Oral temp 98.9. 100-120s/50-60s. Exam: Alert in NAD. Min left drift. 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 Right pontine lacunar infarct +/-Right Diabetic CN III Mononeuropathy SUGGEST: Orthostatic BP's Continue triple antibiotics via pic-line in [place] while Pt receives PT for her gait instability. Continue metoprolol 50 mg BID for migraine prophylaxis Add Depakote 500 mg po qhs for further migraine prophylaxis Sumatriptan 100 mg prn for breakthrough headache Repeat MRI in 1 week and after full course of antibiotics. Family in agreement with plan of care and have discussed with Board Machine Set Up Operator possible placement at [facility]. Thank you very much, Lizandro Engle MD
[2018-07-16] MEDS ORDERED: DIVALPROEX NA *ER* EXTEND REL 500 MG TABLET.SA (FP) PO SCH (22:00)
[2018-07-16] MEDS ORDERED: NIFEdipine E.R 60 MG TABLET (UD) PO SCH (22:00)
[2018-07-16] MEDS ORDERED: ATORVASTATIN CA 80 MG TABLET (FP) PO SCH (22:00)
[2018-07-17] MEDS: NIFEdipine E.R. 30 MG TABLET (FP) PO SCH ×2 (00:08→09:34)
[2018-07-17] MEDS ORDERED: PIPERACILLIN/TAZOBACTAM 2.25 GM VIAL IVPB ONE ×3 (03:45→14:25)
[2018-07-17] MEDS ORDERED: DEXTROSE 5%-WATER - 50 ML IVPB ONE ×3 (03:45→14:25)
[2018-07-17] MEDS: PIPERACILLIN/TAZOB 2.25 GM 2.25 GM in DEXTROSE 5%-WATER - 50 ML IVPB SCH ×3 (03:47→18:54)
[2018-07-17] MEDS ORDERED: PT OWN MED DRAWER 7, Y5N ONE ×4 (06:12→14:24)
[2018-07-17] MEDS: INSULIN SLIDING SCALE (NOVOLOG) 1 VIAL SQ SCH ×3 (06:35→18:05)
[2018-07-17 08:31] LABS: ANION GAP 10 MMOL/L (8-16); BLOOD UREA NITROGEN 35 mg/dL (7-18); CALCIUM 8.1 mg/dL (8.5-10.1); CHLORIDE 103 mmol/L (98-107); CO2 24 mmol/L (21-32); CREATININE 1.4 mg/dL (0.55-1.3); GLUCOSE,RANDOM 238 mg/dL (74-106); POTASSIUM 4.1 mmol/L (3.5-5.1); SODIUM 137 mmol/L (136-145)
[2018-07-17] MEDS: DEXAMETHASONE SOD PHOSPHATE 4 MG/1 ML VIAL IVPUSH SCH (09:21)
[2018-07-17] MEDS: METOPROLOL TARTRATE 50 MG TABLET (FP) PO SCH (09:31)
[2018-07-17] MEDS: HEPARIN NA (PORCINE) 5,000 UNITS/ML 1ML VIAL SQ SCH (09:36)
[2018-07-17] MEDS ORDERED: FLUTICASONE PROP 0.05% 16 GM NASAL SPRAY NS SCH (10:00)
[2018-07-17] MEDS ORDERED: LISINOPRIL 20 MG TABLET (FP) PO SCH (10:00)
[2018-07-17] MEDS ORDERED: RANITIDINE HCL 150 MG TABLET (FP) PO SCH (10:00)
[2018-07-17] MEDS ORDERED: ASPIRIN 81 MG CHEWABLE TABLETS PO SCH (10:00)
[2018-07-17] MEDS ORDERED: CHLORTHALIDONE 25 MG TABLET PO SCH (10:00)
[2018-07-17] MEDS ORDERED: CLOPIDOGREL BISULFATE 75 MG TABLET (FP) PO SCH (10:00)
--- NOTE | 2018-07-17 10:34 | PN ---
Physical Exam: SUBJECTIVE: Patient seen and examined at bedside. no acute events overnight. MRI +vasogenic edema, abscess vs neoplasm vs demyelinating disease. denies fever , chills, cp , sob, n/v/d. OBJECTIVE: Vital Signs Period Temp Pulse Resp BP Sys/Alvares Pulse Ox Last 24 Hr 98 F-98.7 F 53-85 18-19 111-158/57-65 GENERAL: Awake, lethargic, and fully oriented, NAD HEAD: NCAT EYES: R. Eye ptosis and unable to cross midline on left lateral gaze. R. eye unable to look downward. R. pupil has sluggish reaction to light. Pt. endorses being able to see out of right eye. Left eye unremarkable. EARS, NOSE, THROAT: nares patent, oropharynx clear without exudates. MMM NECK: Normal range of motion, supple without lymphadenopathy, JVD, or masses. LUNGS: CTAB HEART: Grade III Systolic murmur, RRR, with S1 and S2 ABDOMEN: Soft, NTND, normoactive bowel sounds, no guarding, no rebound, no masses. MUSCULOSKELETAL: Normal range of motion at all joints. No bony deformities or tenderness. No CVA tenderness. UPPER EXTREMITIES: 2+ radial pulses, warm, well-perfused. No cyanosis. No clubbing. No peripheral edema. 5/5 upper extremity strength LOWER EXTREMITIES: 2+ dorsal pedal pulses, warm, well-perfused. No calf tenderness. No peripheral edema. NEUROLOGICAL: Lethargic. sensation strength grossly intact SKIN: Warm, dry, normal turgor, no rashes or lesions noted, normal capillary refill. Laboratory Results - last 24 hr 07/16/18 07/16/18 07/16/18 10:10 12:07 16:57 Sodium Potassium Chloride Carbon Dioxide Anion Gap BUN Creatinine Creat Clearance w eGFR POC Glucometer 178 236 Random Glucose Calcium Random Vancomycin 13.7 L 07/17/18 07/17/18 06:00 06:25 Sodium 137 Potassium 4.1 Chloride 103 Carbon Dioxide 24 Anion Gap 10 BUN 35 H Creatinine 1.4 H Creat Clearance w eGFR 37.39 POC Glucometer 234 Random Glucose 238 H Calcium 8.1 L Random Vancomycin Active Medications Generic Name Dose Route Start Last Admin Trade Name Freq PRN Reason Stop Dose Admin Aspirin 81 mg 07/17/18 10:00 04/05/19 09:32 Asa - PO 81 mg DAILY [facility] Administration Atorvastatin Calcium 80 mg 07/16/18 22:00 07/16/18 22:17 Lipitor - PO 80 mg HS [facility] Administration Chlorthalidone 25 mg 07/17/18 10:00 07/17/18 09:35 [place] - PO 25 mg DAILY [facility] Administration Clopidogrel Bisulfate 75 mg 07/17/18 10:00 07/17/18 09:32 Plavix - PO 75 mg DAILY [facility] Administration Dexamethasone Sodium Phosphate 4 mg 07/15/18 21:30 07/17/18 09:21 Decadron Injection - IVPUSH 4 mg Q12H [facility] Administration Divalproex Sodium 500 mg 07/16/18 22:00 07/16/18 22:17 Depakote *Er* - PO 500 mg HS [facility] Administration Fluticasone Propionate 1 spray 07/17/18 10:00 Flonase - NS DAILY [facility] Heparin Sodium (Porcine) 5,000 unit 07/16/18 22:00 07/17/18 09:36 Heparin - SQ 5,000 unit BID [facility] Administration Vancomycin HCl 1,250 mg/ 250 mls @ 166.667 mls/hr 07/15/18 12:00 07/16/18 12: 13 Dextrose IVPB 166.667 mls/hr Q24H [facility] Administration Protocol Piperacillin Sod/Tazobactam 50 mls @ 100 mls/hr 07/15/18 12:00 07/17/18 09:24 Sod 2.25 gm/ Dextrose IVPB 100 mls/hr Q6H-IV [facility] Administration Protocol Metronidazole 500 mg in 100 mls @ 100 mls/hr 07/16/18 18:15 07/17/18 09:37 Flagyl 500mg Premixed Ivpb - IVPB 100 mls/hr Q6H-IV [facility] Administration Insulin Aspart 1 vial 07/16/18 16:30 07/17/18 06:35 Novolog Vial Sliding Scale - SQ 2 units TIDAC [facility] Administration Protocol Insulin Detemir 10 units 07/16/18 11:34 07/16/18 22:17 Levemir Vial SQ 10 units HS [facility] Administration Lisinopril 40 mg 07/17/18 10:00 07/17/18 09:33 Prinivil PO 40 mg DAILY [facility] Administration Metoprolol Tartrate 50 mg 07/16/18 22:00 07/17/18 09:31 Lopressor - PO 50 mg BID [facility] Administration Nifedipine 60 mg 07/16/18 23:45 07/17/18 09:34 Procardia Xl - PO 60 mg BID [facility] Administration Ranitidine HCl 300 mg 07/17/18 10:00 07/17/18 09:32 Zantac - PO 300 mg DAILY [facility] Administration Sumatriptan Succinate 50 mg 07/16/18 19:40 07/17/18 09:31 Imitrex - PO 50 mg ONCE PRN Administration HEADACHE ASSESSMENT/PLAN: 8167-2170 MRI/BRAIN MRI WITH CONTRAST 07/14/18 Rule out right thalamic abscess MRI of the brain without and following intravenous contrast. Multiplanar T1-T2 sequences were obtained followed by postcontrast T1 axial, coronal and sagittal images. 15 mL of ProHance was intravenously injected. Compared to prior MRI of the brain dated 07/03/2018 There is [id number] volume loss and ventricular dilatation. Previously visualized lesion in the right thalamus, medially is again seen measuring approximately 1.9 x 1.7 x 1.1 cm in craniocaudal, transverse and AP dimension with a necrotic center and moderate surrounding vasogenic edema that has worsened since see prior exam. Minimal mass effect on the adjacent right lateral wall of the third ventricle is present. No restricted diffusion is identified. An abscess is usually hyperintense on the diffusion weighted axial images. On the postcontrast images, peripheral enhancement is present. No other abnormal intracranial enhancement is seen. A large T2 hyperintense left periventricular lesion is again seen measuring 2.2 x 1.2 cm in AP and transverse dimension without interval change. Other small periventricular T2 hyperintense foci are again seen. There is no shift of the midline structures. The craniocervical junction appears unremarkable. Flow voids are present within the central intracranial arterial circulation. Previously noted approximately 5 mm aneurysm at the trifurcation of the right M1 segment is again seen with enhancement. Both orbits appear unremarkable. No suspicious bone marrow abnormal signal is identified. IMPRESSION: No significant interval change in the size of previously visualized necrotic- like lesion in the right thalamus, medially that demonstrates peripheral enhancement. Moderate surrounding vasogenic edema that has worsened since the prior examination. Differential diagnosis includes an abscess, considering the clinical history although no central restricted diffusion is present. Differential diagnosis also includes a neoplastic lesion or a demyelinating plaque. 2 x 1.2 cm left anterior periventricular T2 hyperintensity. Cannot rule out a demyelinating plaque. Other small periventricular T2 hyperintense foci are present likely on the basis of mild chronic microvascular ischemic disease changes [id number] MRI/BRAIN MRA W/O CONTRAST 07/14/18 MRI of the brain. 3-D [id number] technique the MR angiography of the intracranial circulation shows: The Posterior fossa circulation unremarkable with no evidence of basilar artery stenosis, dissection or occlusion. The visualized portion of the vertebral arteries are symmetric unremarkable. 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 Approximately 2 cm from its origin. No evidence of basilar [place].. 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 No evidence of aneurysm of [place]. No evidence of basilar stenosis, dissection or occlusion. ASSESSMENT/PLAN: 68 y.o. [place]ic-speaking F w/ PMHx. of HTN, HLD, CKD, Aortic Stenosis, Breast Ca s/p lumpectomy, CAD, and CVA presented to the ER for persistent dizziness and blurred vision with concerns for cerebral abscess # Probable R thalmic abscess - MRI 07/14/18 +vasogenic edema, abscess vs neopplasm vs demyelinating disease. s/p 10mg decadron c/w decadron to 4 mg q 12 hrs (Lesion does not appear to exhibit mass effect) s/p Meropenum and Clindamycin c/w vanco/zosyn/flagyl for several weeks via PICC-line and monitor abscess size with repeat MRI in 1 week and then after abx course completed, ID and Neuro recs appreciated ESR/CRP nl MRI from 07/03/18 showed 4.8mm aneurysm of R. 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 Enlge reads an abscess. ID Consult Dr. Stout Neuro consult Dr. Engle #old CVA c/w asa/plavix #Migraine- started on depakote 500 mg po qhs and c/w metopolol 50 mg BID for ppx. sumatriptan 100 mg prn for breakthrough HARPER #IDDM hold home oral meds ISS TIDAC BGM TIDAC levemir 10U HS while on steroids #CKD - baseline ~1.5 #+murmur- as per patient she has no hx of murmur but is listed in from chart last month has known . will need to f/u with PMD to monitor #HTN Medication reconciliation- as Pt. has Aortic stenosis, care to avoid large swings in BP. c/w Nifedipine, Metoprolol, chlorthalidone, and Lisinopril #CAD/PAD/HLD c/w Plavix, ASA and Atorvastatin #FEN encourage PO intake monitor electrolytes and replete as needed Diabetic/Na restricted Diet #DVT ppx. Hep 5k BID SQ home dose H2 desi Dispo m/s PT eval patient wants to go home to complete IV abx therapy. risks and benefits of MARSHALL vs home treatment and ability to also perform PT while getting IV abx treatment explained. treatment regimen likely to be too cumbersome to be done at home as on 3 different abx with multiple dosing through the day. will speak with son regarding dispo planning Visit type - Emergency Visit Emergency Visit: Yes ED Registration Date: 07/13/18 Care time: The patient presented to the Emergency Department on the above date and was hospitalized for further evaluation of their emergent condition. - New Patient This patient is new to me today: Yes Date on this admission: 07/17/18 - Critical Care Critical Care patient: No
--- NOTE | 2018-07-17 10:54 | PN ---
Teaching Attending Note Name of Resident: Abiodun Cadet ATTENDING PHYSICIAN STATEMENT I saw and evaluated the patient. I reviewed the resident's note and discussed the case with the resident. I agree with the resident's findings and plan as documented. SUBJECTIVE:c/o HARPER,. has not tried medication to help with HARPER. denies CP, SOB, fever, chills, N/V/C/D, worsening numbness/weakness on one side of the body OBJECTIVE: Last Vital Signs Temp Pulse Resp BP Pulse Ox 98.6 F 53 L 18 129/64 98 07/17/18 08:53 07/17/18 08:53 07/17/18 08:53 07/17/18 08:53 07/15/18 22:00 General NAD HEENT R eye unable to medially adduct, no nystagmus ASSESSMENT AND PLAN: 68yo F with PMH HTN, DM, Dyslipidemia, CKD, breast ca s/p lumpectomy presented to the ER for persistent dizzyness and blurred vision with concerns for cerebral abscess 1. Probable R thalmic abscess- plan for vanco/zosyn/flagyl for several weeks and monitor abscess size with repeat MRI in 1 week and then after abx course completed. Dex BID. will need MARSHALL for aggressive PT at this time. frequent monitoring with neuro and ID 2. Migraine- ordered sumatriptan now to see if assist in migrain. started on metopolol and depakote for prophylaxis. 3. Murmur- routine surveillance by PMD 4. old CVA- on asa/plavix 5. CKD- at baseline 6. DM- hold oral agents. cont iss and bgm, Lantus hs 7. DVT ppx- hep sq 8. patient wants to go home to complete IV abx therapy. explained risks and benefits of MARSHALL vs home treatment and ability to also perform PT while getting IV abx treatment. explained treatment regimen likely to be too cumbersome to be done at home as on 3 different abx with multiple dosing through the day. will speak with son regarding dispo planning cyraphone #[id number]
--- NOTE | 2018-07-17 13:49 | PN ---
Progress Note, Physician History of Present Illness: patient stable still with some headache - Current Medication List Current Medications: Active Medications Aspirin (Asa -) 81 mg PO DAILY [facility] Last Admin: 07/17/18 09:32 Dose: 81 mg Atorvastatin Calcium (Lipitor -) 80 mg PO HS [facility] Last Admin: 07/16/18 22:17 Dose: 80 mg Chlorthalidone (Hygroton -) 25 mg PO DAILY [facility] Last Admin: 07/17/18 09:35 Dose: 25 mg Clopidogrel Bisulfate (Plavix -) 75 mg PO DAILY [facility] Last Admin: 07/17/18 09:32 Dose: 75 mg Dexamethasone Sodium Phosphate (Decadron Injection -) 4 mg IVPUSH Q12H [facility] Last Admin: 07/17/18 09:21 Dose: 4 mg Divalproex Sodium (Depakote *Er* -) 500 mg PO HS [facility] Last Admin: 07/16/18 22:17 Dose: 500 mg Fluticasone Propionate (Flonase -) 1 spray NS DAILY [facility] Last Admin: 07/17/18 13:33 Dose: Not Given Heparin Sodium (Porcine) (Heparin -) 5,000 unit SQ BID [facility] Last Admin: 07/17/18 09:36 Dose: 5,000 unit Vancomycin HCl 1,250 mg/ (Dextrose) 250 mls @ 166.667 mls/hr IVPB Q24H [facility]; Protocol Last Admin: 07/16/18 12:13 Dose: 166.667 mls/hr Piperacillin Sod/Tazobactam (Sod 2.25 gm/ Dextrose) 50 mls @ 100 mls/hr IVPB Q6H-IV [facility]; Protocol Last Admin: 07/17/18 09:24 Dose: 100 mls/hr Metronidazole (Flagyl 500mg Premixed Ivpb -) 500 mg in 100 mls @ 100 mls/hr IVPB Q6H-IV [facility] Last Admin: 07/17/18 09:37 Dose: 100 mls/hr Insulin Aspart (Novolog Vial Sliding Scale -) 1 vial SQ TIDAC [facility]; Protocol Last Admin: 07/17/18 11:48 Dose: Not Given Insulin Detemir (Levemir Vial) 10 units SQ [facility] Last Admin: 07/16/18 22:17 Dose: 10 units Lisinopril (Prinivil) 40 mg PO DAILY [facility] Last Admin: 07/17/18 09:33 Dose: 40 mg Metoprolol Tartrate (Lopressor -) 50 mg PO BID [facility] Last Admin: 07/17/18 09:31 Dose: 50 mg Nifedipine (Procardia Xl -) 60 mg PO BID [facility] Last Admin: 07/17/18 09:34 Dose: 60 mg Ranitidine HCl (Zantac -) 300 mg PO DAILY [facility] Last Admin: 07/17/18 09:32 Dose: 300 mg Sumatriptan Succinate (Imitrex -) 50 mg PO ONCE PRN PRN Reason: HEADACHE Last Admin: 07/17/18 09:31 Dose: 50 mg - Objective Vital Signs: Vital Signs Temperature 98.6 F 07/17/18 13:00 Pulse Rate 55 L 07/17/18 13:00 Respiratory Rate 18 07/17/18 13:00 Blood Pressure 130/60 07/17/18 13:00 O2 Sat by Pulse Oximetry (%) 98 07/17/18 09:00 Constitutional: Yes: No Distress, Calm Cardiovascular: Yes: Regular Rate and Rhythm Respiratory: Yes: Regular, CTA Bilaterally Gastrointestinal: Yes: Normal Bowel Sounds, Soft Musculoskeletal: Yes: WNL Extremities: Yes: WNL Neurological: Yes: Alert Psychiatric: Yes: Alert Labs: CBC, BMP 07/15/18 06:50 07/17/18 06:25 Assessment/Plan 68yo F with PMH HTN, DM, Dyslipidemia, CKD, breast ca s/p lumpectomy presented to the ER for persistent dizzyness and blurred vision with concerns for cerebral abscess patient improving R thalmic abscess #old CVA #Migraine- #IDDM #CKD - baseline ~1.5 plan continue current abx patient will need another 7 days of current abx follow vanco levels and cbc bmp rest continue current mgmt close watch
--- NOTE | 2018-07-17 14:38 | DS ---
Physical Exam: SUBJECTIVE: Patient seen and examined at bedside. no acute events overnight. MRI +vasogenic edema, abscess vs neoplasm vs demyelinating disease. denies fever , chills, cp , sob, n/v/d. OBJECTIVE: Vital Signs Period Temp Pulse Resp BP Sys/Alvares Pulse Ox Last 24 Hr 98.4 F-98.7 F 53-85 18-19 111-158/60-65 98 PHYSICAL EXAM GENERAL: Awake, lethargic, and fully oriented, NAD HEAD: NCAT EYES: R. Eye ptosis and unable to cross midline on left lateral gaze. R. eye unable to look downward. R. pupil has sluggish reaction to light. Pt. endorses being able to see out of right eye. Left eye unremarkable. EARS, NOSE, THROAT: nares patent, oropharynx clear without exudates. MMM NECK: Normal range of motion, supple without lymphadenopathy, JVD, or masses. LUNGS: CTAB HEART: Grade III Systolic murmur, RRR, with S1 and S2 ABDOMEN: Soft, NTND, normoactive bowel sounds, no guarding, no rebound, no masses. MUSCULOSKELETAL: Normal range of motion at all joints. No bony deformities or tenderness. No CVA tenderness. UPPER EXTREMITIES: 2+ radial pulses, warm, well-perfused. No cyanosis. No clubbing. No peripheral edema. 5/5 upper extremity strength LOWER EXTREMITIES: 2+ dorsal pedal pulses, warm, well-perfused. No calf tenderness. No peripheral edema. NEUROLOGICAL: Lethargic. sensation strength grossly intact SKIN: Warm, dry, normal turgor, no rashes or lesions noted, normal capillary refill. LABS Laboratory Results - last 24 hr 07/16/18 07/17/18 07/17/18 16:57 06:00 06:25 Sodium 137 Potassium 4.1 Chloride 103 Carbon Dioxide 24 Anion Gap 10 BUN 35 H Creatinine 1.4 H Creat Clearance w eGFR 37.39 POC Glucometer 236 234 Random Glucose 238 H Calcium 8.1 L 07/17/18 11:47 Sodium Potassium Chloride Carbon Dioxide Anion Gap BUN Creatinine Creat Clearance w eGFR POC Glucometer 188 Random Glucose Calcium 9206-2281 MRI/BRAIN MRI WITH CONTRAST 07/14/18 Rule out right thalamic abscess MRI of the brain without and following intravenous contrast. Multiplanar T1-T2 sequences were obtained followed by postcontrast T1 axial, coronal and sagittal images. 15 mL of ProHance was intravenously injected. Compared to prior MRI of the brain dated 07/03/2018 There is [id number] volume loss and ventricular dilatation. Previously visualized lesion in the right thalamus, medially is again seen measuring approximately 1.9 x 1.7 x 1.1 cm in craniocaudal, transverse and AP dimension with a necrotic center and moderate surrounding vasogenic edema that has worsened since see prior exam. Minimal mass effect on the adjacent right lateral wall of the third ventricle is present. No restricted diffusion is identified. An abscess is usually hyperintense on the diffusion weighted axial images. On the postcontrast images, peripheral enhancement is present. No other abnormal intracranial enhancement is seen. A large T2 hyperintense left periventricular lesion is again seen measuring 2.2 x 1.2 cm in AP and transverse dimension without interval change. Other small periventricular T2 hyperintense foci are again seen. There is no shift of the midline structures. The craniocervical junction appears unremarkable. Flow voids are present within the central intracranial arterial circulation. Previously noted approximately 5 mm aneurysm at the trifurcation of the right M1 segment is again seen with enhancement. Both orbits appear unremarkable. No suspicious bone marrow abnormal signal is identified. IMPRESSION: No significant interval change in the size of previously visualized necrotic- like lesion in the right thalamus, medially that demonstrates peripheral enhancement. Moderate surrounding vasogenic edema that has worsened since the prior examination. Differential diagnosis includes an abscess, considering the clinical history although no central restricted diffusion is present. Differential diagnosis also includes a neoplastic lesion or a demyelinating plaque. 2 x 1.2 cm left anterior periventricular T2 hyperintensity. Cannot rule out a demyelinating plaque. Other small periventricular T2 hyperintense foci are present likely on the basis of mild chronic microvascular ischemic disease changes [id number] MRI/BRAIN MRA W/O CONTRAST 07/14/18 MRI of the brain. 3-D [id number]-vf-[id number] technique the MR angiography of the intracranial circulation shows: The Posterior fossa circulation unremarkable with no evidence of basilar artery stenosis, dissection or occlusion. The visualized portion of the vertebral arteries are symmetric unremarkable. 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 Approximately 2 cm from its origin. No evidence of basilar [place] of [place].. 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 No evidence of aneurysm of [place]. No evidence of basilar stenosis, dissection or occlusion. HOSPITAL COURSE: Date of Admission:07/13/18 Date of Discharge: 07/17/18 68 y.o. [place]ayan-speaking F w/ PMHx. of HTN, HLD, CKD, Aortic Stenosis, Breast Ca s/p lumpectomy, CAD, and CVA presented to the ER for persistent dizziness and blurred vision with concerns for cerebral abscess based on worsening of sxs since ED visit on 07/03/18 and MRI from 07/03/18 showing 4.8mm aneurysm of R. 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 Engle reads and is concerned for an abscess. ID Consult Dr. Stout Neuro consult Dr. Engle Admitted for concerns for cerebral abscess. Found w/ Probable R thalmic abscess on MRI 07/14/18 showing +vasogenic edema, abscess vs neopplasm vs demyelinating disease. ESR/CRP nl. pt started on decadron and tapered to 4 mg q 12 hrs ( Lesion does not appear to exhibit mass effect). will be dcd on this dose PO and pt will f/w Neuro Dr Engle for further adjustments. pt s/p Meropenum and Clindamycin in ED and c/w vanco/zosyn/flagyl, per ID and Neuro recs. pt will need 6 weeks via PICC-line and will need to monitor abscess size with repeat MRI in 3 and half weeks or sooner per neuro decision, and then after abx course completed, ID and Neuro recs appreciated. #old CVA c/w asa/plavix #Migraine- started on depakote 500 mg po qhs and c/w metopolol 50 mg BID for ppx. sumatriptan 100 mg prn for breakthrough HARPER #CKD - baseline ~1.5 #+murmur- as per patient she has no hx of murmur but is listed in from chart last month has known . will need to f/u with PMD to monitor #CAD/PAD/HLD c/w Plavix, ASA and Atorvastatin Dispo patient wants to go home to complete IV abx therapy. risks and benefits of [facility] vs home treatment and ability to also perform PT while getting IV abx treatment explained. treatment regimen likely to be too cumbersome to be done at home as on 3 different abx with multiple dosing through the day, however pt and family want home pt is stable and ready for dc w/ appropriate f/u Minutes to complete discharge: 39 Discharge Summary Reason For Visit: RIGHT OCULOMOTOR NERVE PALSY,DIZZINESS, Current Active Problems Cerebral abscess (Acute) Dizziness (Acute) Condition: Fair - Instructions Diet, Activity, Other Instructions: you came back to the hospital because of trouble with opening and moving your eye. MRI of your brain showed that you may have an abscess infection in your brain. You will therefore need to go on 6 weeks of 3 antibiotics: vancomycin, flagyl, and zosyn. In order to receive these antibiotics you will get a catheter called a PICC placed in your chest/shoulder to allow for buttermaker helper antibiotic administration. A visiting nurse will come to your house to teach you how to administer the antibiotics. While on these meds you will need to check your kidney function. The visiting nurse will draw these labs weekly and change the dressings of the catheter. In addition, you will need a repeat MRI of your brain in 3 and a half weeks or at the discretion of Dr. Engle to look at the progression vs improvement of the abscess. You have a heart murmur. please follow up with your primary care physician to see if you need any further work up with regards to this. MEDS Please continue taking decadron 4mg every 12 hours until you follow up with doctor Engle. Please take depakote 500 mg po at night to help prevent migrain/headaches Please take sumatriptan 50mg or a 100 mg as needed for breakthrough Headaches Please resume your other home meds. We will prescribe you a rolling walker and a shower chair REFERRALS: Please follow up with your primary care physician within 1 week. You will need weekly monitoring of your vancomycin level and kidney function. Please follow up with infectious disease Dr Stout within 1 week Please follow up with Neurologist Dr. Engle within 1 week If you experience any fever, chills, chest pain, shortness of breath, nausea, vomit, diarrhea, burry vision, headache, please call 911 or go to the ER Referrals: Carley Stout MD [Staff Physician] - 1 Week Dickoff,Lizandro, MD [Staff Physician] - 1 Week Disposition: VNS/HOME HEALTH CARE - Home Medications Comprehensive Discharge Medication List: Ambulatory Orders Alendronate Sodium [Fosamax] 70 mg PO WEEKLY 01/02/15 Aspirin [ASA -] 81 mg PO DAILY 01/02/15 Atorvastatin Ca [Lipitor] 80 mg PO HS 01/02/15 Calcium Carbonate/Vitamin D3 [Calcium 600-Vit D3 800 Caplet] 1 each PO DAILY Chlorthalidone 25 mg PO DAILY 01/02/15 Famotidine 40 mg PO DAILY 01/02/15 Insulin Glargine,Hum.rec.anlog [Lantus (10mL VIAL) -] 50 units SQ HS 01/02/15 Lisinopril [Prinivil -] 40 mg PO DAILY 01/02/15 Metoprolol Tartrate 50 mg PO BID 01/02/15 Nifedipine [Nifedipine ER] 60 mg PO BID 01/02/15 Clopidogrel Bisulfate [Clopidogrel] 75 mg PO DAILY 07/03/18 Dulaglutide [Trulicity] 0.75 mg SQ WEEKLY 07/03/18 Fluticasone Prop 0.05% Nasal [Flonase -] 1 - 2 spray NS DAILY 07/03/18 Dexamethasone [Decadron] 4 mg PO Q12H 14 Days #28 tablet 07/17/18 Divalproex *ER* [Depakote *ER* -] 500 mg PO HS 30 Days #30 tablet.sa 07/17/18 Metronidazole 500 mg IV Q8H 42 Days tablet 07/17/18 Miscellaneous Medical Supply [Outpatient Order] 1 each ASDIR #1 [facility] [place] Miscellaneous Medical Supply [Outpatient Order] 1 each ASDIR #1 [facility] [place] Piperacillin/Tazob 2.25 gm [Zosyn -] 2.25 gm IVPB Q8H vial 07/17/18 Sumatriptan Succinate [Imitrex -] 100 mg PO DAILY PRN 15 Days #30 tablet Vancomycin HCl 1,250 mg IVPB Q24H vial 07/17/18 This patient is new to me today: Yes Date on this admission: 07/17/18 Emergency Visit: Yes ED Registration Date: 07/13/18 Care time: The patient presented to the Emergency Department on the above date and was hospitalized for further evaluation of their emergent condition. Critical Care patient: No - Discharge Referral Referred to [facility] No
[2018-07-17] MEDS ORDERED: ARTIFICIAL TEARS (POLYVINYL ALCOHOL) OPTH DROPS OU ONE (15:25)
[2018-07-17] MEDS: VANCOMYCIN HCL 1,250 MG in DEXTROSE 5%-WATER - 250 ML IVPB SCH (16:02)
[2018-07-17 18:29] VITALS: BP 128/58; PULSE 60; TEMP 98.7
== END 2018-07-17 20:10 | disposition home health service (06) | DRG 94 ==
LOC: JER 16:52 → JERBED 19:50 → J4W 07-14 14:32 → J6S 07-16 14:12
PROVIDERS: ADMIT Internal Medicine; ATTEND Internal Medicine
PROC: 02HV33Z Insertion of Infusion Device into Superior Vena Cava, Percutaneous Approach (ICD-10-PCS; principal; 2018-07-17)
PROC: B518ZZA Fluoroscopy of Superior Vena Cava, Guidance (ICD-10-PCS; 2018-07-17)
DX: G06.0 Intracranial abscess and granuloma (principal); G93.6 Cerebral edema; G93.41 Metabolic encephalopathy; I12.9 Hypertensive chronic kidney disease with stage 1 through stage 4 chronic kidney disease, or unspecified chronic kidney disease; E11.51 Type 2 diabetes mellitus with diabetic peripheral angiopathy without gangrene; E11.22 Type 2 diabetes mellitus with diabetic chronic kidney disease; N18.3 Chronic kidney disease, stage 3 (moderate); E11.41 Type 2 diabetes mellitus with diabetic mononeuropathy; I35.0 Nonrheumatic aortic (valve) stenosis; R01.1 Cardiac murmur, unspecified; E78.5 Hyperlipidemia, unspecified; H53.8 Other visual disturbances; I67.1 Cerebral aneurysm, nonruptured; G43.809 Other migraine, not intractable, without status migrainosus; R42 Dizziness and giddiness; E11.42 Type 2 diabetes mellitus with diabetic polyneuropathy; Z79.4 Long term (current) use of insulin; Z85.3 Personal history of malignant neoplasm of breast; Z86.73 Personal history of transient ischemic attack (TIA), and cerebral infarction without residual deficits
CPT/HCPCS: 36415; 36558; 70552-TC; 77001-TC-FY; 80048; 80053; 82962; 83735; 84100; 85025; 85027; 85651; 86140; 93005; 93010; 97116-GP; 97162-GP; 99282-25; C1751; G0480; J1100; J1644

== ENCOUNTER 2018-07-30 16:32 | Emergency (ER) | payer OTHER ==
[2018-07-30 17:02] VITALS: BP 150/72; PULSE 58; TEMP 97; BMI 29.8
--- NOTE | 2018-07-30 17:51 | PDOC ---
History of Present Illness - General Chief Complaint: Blood Sugar Problem Stated Complaint: SUGAR PROBLEM Time Seen by Provider: 07/30/18 16:52 History Source: Patient, Family Exam Limitations: Language Barrier - History of Present Illness Initial Comments: 07/30/18 17:50 Pt is a 68yo F with PMH of IDDM, CKD, HTN, HLD, Aortic Stenosis, Breast Ca s/p lumpectomy, probable Thalamic Abscess s/p PICC on abx presenting to ED for hyperglycemia. Pt states her bgl was in the 400s today. She called EMS. Pt states she feels a little tired. She denies fever, chills, abdominal pain, n/v/d , chest pain, sob, cough, urinary symptoms, headache, new dizziness, numbness/ tingling. She has been taking her antibiotics and medications since her d/c earlier this month. Takes insulin QHS. Pt getting 1LNS by EMS. PMD: Nirmal PMH: see hpi PSH: lumpectomy Meds: see med rec Allergies: nkda Past History - Past Medical History Allergies/Adverse Reactions: Allergies Allergy/AdvReac Type Severity Reaction Status Date / Time No Known Drug Allergies Allergy Verified 07/30/18 17:02 Home Medications: Ambulatory Orders Alendronate Sodium [Fosamax] 70 mg PO WEEKLY 01/02/15 Aspirin [ASA -] 81 mg PO DAILY 01/02/15 Atorvastatin Ca [Lipitor] 80 mg PO HS 01/02/15 Calcium Carbonate/Vitamin D3 [Calcium 600-Vit D3 800 Caplet] 1 each PO DAILY Chlorthalidone 25 mg PO DAILY 01/02/15 Famotidine 40 mg PO DAILY 01/02/15 Insulin Glargine,Hum.rec.anlog [Lantus (10mL VIAL) -] 50 units SQ HS 01/02/15 Lisinopril [Prinivil -] 40 mg PO DAILY 01/02/15 Metoprolol Tartrate 50 mg PO BID 01/02/15 Nifedipine [Nifedipine ER] 60 mg PO BID 01/02/15 Clopidogrel Bisulfate [Clopidogrel] 75 mg PO DAILY 07/03/18 Dulaglutide [Trulicity] 0.75 mg SQ WEEKLY 07/03/18 Fluticasone Prop 0.05% Nasal [Flonase -] 1 - 2 spray NS DAILY 07/03/18 Dexamethasone [Decadron] 4 mg PO Q12H 14 Days #28 tablet 07/17/18 Divalproex *ER* [Depakote *ER* -] 500 mg PO HS 30 Days #30 tablet.sa 07/17/18 Metronidazole 500 mg IV Q8H 42 Days tablet 07/17/18 Miscellaneous Medical Supply [Outpatient Order] 1 each ASDIR #1 [facility] [place] Miscellaneous Medical Supply [Outpatient Order] 1 each ASDIR #1 [facility] [place] Piperacillin/Tazob 2.25 gm [Zosyn -] 2.25 gm IVPB Q8H vial 07/17/18 Sumatriptan Succinate [Imitrex -] 100 mg PO DAILY PRN 15 Days #30 tablet Vancomycin HCl 1,250 mg IVPB Q24H vial 07/17/18 Cancer: Yes (BREAST CANCER) CVA: Yes (06/2018 right ocular eye weakness/confusion) COPD: No Diabetes: Yes (IDDM) HTN: Yes - Immunization History Immunization Up to Date: (Unknown) - Suicide/Smoking/Psychosocial Hx Smoking History: Never smoked Have you smoked in the past 12 months: No Number of Cigarettes Smoked Daily: 2,010 Information on smoking cessation initiated: No Hx Alcohol Use: No Drug/Substance Use Hx: No Substance Use Type: None Review of Systems - Review of Systems Constitutional: No: Chills, Fever, Malaise, Weakness HEENTM: No: Eye Pain, Blurred Vision, Double Vision, Cataracts Respiratory: No: Cough, Shortness of Breath Cardiac (ROS): No: Chest Pain, Irregular Heart Rate, Lightheadedness, Palpitations, Syncope ABD/GI: No: Abdominal Distended, Constipated, Diarrhea, Nausea, Vomiting : No: Burning, Dysuria, Flank Pain Musculoskeletal: No: Back Pain, Joint Pain, Neck Pain Integumentary: No: Symptoms Reported Neurological: No: Headache, Numbness, Tingling, Tremors, Weakness *Physical Exam - Vital Signs Last Vital Signs Temp Pulse Resp BP Pulse Ox 97.0 F L 58 L 16 150/72 100 07/30/18 16:35 07/30/18 16:35 07/30/18 16:35 07/30/18 16:35 07/30/18 16:35 - Physical Exam General Appearance: Yes: Nourished, Appropriately Dressed. No: Apparent Distress HEENT: positive: EOMI, HERMINIA, Normal ENT Inspection, Pharynx Normal, Other ( ptosis of R eye) Neck: positive: Trachea midline, Supple. negative: Lymphadenopathy (R), Lymphadenopathy (L) Respiratory/Chest: positive: Lungs Clear, Normal Breath Sounds. negative: Crackles, Rales Cardiovascular: positive: Regular Rhythm, Regular Rate, S1, S2, Systolic Murmur. negative: Edema, JVD Vascular Pulses: Carotid (R): 2+, Carotid (L): 2+, Dorsalis-Pedis (R): 2+, Doralis-Pedis (L): 2+ Gastrointestinal/Abdominal: positive: Normal Bowel Sounds, Soft. negative: Tender, Distended, Guarding, Rebound, Tenderness, Hernia Musculoskeletal: negative: CVA Tenderness, Vertebral Tenderness Extremity: positive: Normal Capillary Refill. negative: Pedal Edema, Swelling, Calf Tenderness Integumentary: positive: Normal Color, Dry, Warm Neurologic: positive: lead data architect II-XII NML intact, Fully Oriented, Alert, Normal Mood/ Affect, Normal Response, Motor Strength 5/5 ED Treatment Course - LABORATORY CBC & Chemistry Diagram: 07/30/18 18:00 07/30/18 18:00 - ADDITIONAL ORDERS Additional order review: Laboratory Results 07/30/18 17:21 POC Glucometer 236 07/30/18 17:21 POC Glucometer 236 Medical Decision Making - Medical Decision Making 07/30/18 17:56 Pt is a 68yo F with PMH of IDDM, CKD, HTN, HLD, Aortic Stenosis, Breast Ca s/p lumpectomy, probable Thalamic Abscess s/p PICC on abx presenting to ED for hyperglycemia. Pt states her bgl was in the 400s today. She called EMS. Pt states she feels a little tired. She denies fever, chills, abdominal pain, n/v/d , chest pain, sob, cough, urinary symptoms, headache, new dizziness, numbness/ tingling. She has been taking her antibiotics and medications since her d/c earlier this month. Takes insulin QHS. Pt getting 1LNS by EMS. Vitals: wnl PE: murmur, R eye ptosis, lungs cta, good skin turgor Ddx includes but not limited to DKA, HHS, hyperglycemia, medication noncompliance/interaction, metabolic/electrolyte disturbance, thalamic abscess not improving, uti, other infectious process -labs, acetone, vbg -fluids 07/30/18 19:34 labs wnl. gluc 200s. no anion gap. pt getting fluids. Dr. Engle saw pt at bedside, said pt needed to be tapered off Decadron. Hyperglycemia could have been caused by steroid use. wants CT head. CT- thalamic lesion decreased in size from last time. pt hemodynamically stable, afebrile, f/u with neuro, not in dka or hhs, compliant with medications. safe for dc home. given return precautions. *DC/Admit/Observation/Transfer Diagnosis at time of Disposition: Hyperglycemia - Discharge Dispostion Disposition: HOME Condition at time of disposition: Improved Decision to Admit order: No - Referrals Referrals: Nehal Blevins [Non Staff, Medical] - - Patient Instructions Printed Discharge Instructions: DI for Hyperglycemia -- Adult Additional Instructions: Shelbi te vieron en la mya de emergencias por un alto nivel de azcar en la mitra. El trabajo de mitra es normal. Por favor olivier pj fabricio con garcia mdico para un mayor control de la diabetes. Lit recomiendo visitas de rutina con garcia cardilogo. Recuerde hacer pj fabricio con garcia neurlogo lit. Coma comidas saludables todos los quiros y mantngase hidratado. El Dr. Engle quiere que usted tome la pldora esteroide, Decadron, de manera diferente. Bazine 1/2 pldora dos veces al da milton 2 quiros y luego detngase. Regrese a la yma de emergencias si el nivel de azcar en la mitra es alto, si se siente mareado, si tiene fiebre o si se presenta algn sntoma nuevo. Lizette You were seen in the emergency room today for high blood sugar. The blood work is normal. Please make an appointment with your doctor for further management of diabetes. 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 Remember to make an appointment with your neurologist as well. Eat healthy meals everyday and keep yourself hydrated. Dr. Engle wants you to take the steroid pill, Decadron, differently. Take 1/2 pill two times per day for 2 days then stop. Come back to the emergency room if blood sugar is high, you feel lightheaded, you develop fever, or if any new concerning symptom develops. Thank you Print Language: CUBAN - Post Discharge Activity
[2018-07-30 18:38] LABS: VENOUS PC02 46.9 mmHg (41-51); VENOUS PH 7.35 (7.31-7.41); VENOUS PO2 38.1 mmHg (30-40)
[2018-07-30 18:44] LABS: EPI CELLS 1.3 /HPF (0-5/HPF); URINE APPEARANCE CLEAR; URINE BACTERIA 1.2 /hpf (NEGATIVE); URINE BILIRUBIN NEGATIVE (NEGATIVE); URINE CASTS 0 /lpf (0-8); URINE COLOR YELLOW; URINE GLUCOSE (UA) 1+ (NEGATIVE); URINE KETONE NEGATIVE (NEGATIVE); URINE LEUK ESTERASE TRACE (NEGATIVE); URINE NITRITE NEGATIVE (NEGATIVE); URINE PROTEIN NEGATIVE (NEGATIVE); URINE RBC 1 /hpf (0-4); URINE UROBILINOGEN 0.2 mg/dL (0.2-1.0); URINE WBC 0 /hpf (0-5)
[2018-07-30 18:54] LABS: ALBUMIN 3.2 g/dl (3.4-5.0); ALK PHOS 140 U/L (45-117); ANION GAP 6 MMOL/L (8-16); BILIRUBIN,TOTAL 0.2 mg/dL (0.2-1); BLOOD UREA NITROGEN 31 mg/dL (7-18); CALCIUM 9.1 mg/dL (8.5-10.1); CHLORIDE 100 mmol/L (98-107); CO2 29 mmol/L (21-32); CREATININE 1.2 mg/dL (0.55-1.3); GLUCOSE,RANDOM 241 mg/dL (74-106); POTASSIUM 4.8 mmol/L (3.5-5.1); SGOT/AST 11 U/L (15-37); SGPT/ALT 28 U/L (13-61); SODIUM 134 mmol/L (136-145); TOT PROT 6.8 g/dl (6.4-8.2)
[2018-07-30 19:03] LABS: BASO % 0.4 % (0-2.0); HEMATOCRIT 35.4 % (32.4-45.2); HEMOGLOBIN 11.5 GM/dL (10.7-15.3); LYMPH % 15.1 % (8-40); MCH 25.5 pg (25.7-33.7); MCHC 32.6 g/dl (32.0-36.0); MEAN CELL VOLUME 78.2 fl (80-96); MEAN PLT VOLUME 9.8 fl (7.5-11.1); MONO % 4.7 % (3.8-10.2); NEUT % 78.8 % (42.8-82.8); PLATELET COUNT 161 K/MM3 (134-434); RBC 4.52 M/mm3 (3.60-5.2); RDW 18.7 % (11.6-15.6); WHITE BLOOD COUNT 7.4 K/mm3 (4.0-10.0)
--- NOTE | 2018-07-30 19:27 | CONSULT ---
Consult - text type - Consultation Consultation Note: NEUROLOGY CONSULTATION is greatly appreciated: Events reviewed and discussed with danielle son, Jose. Pt. examined. Case discussed with Dr. Shaye Izquierdo. 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 Work-up revealed a probable Thalamic Abscess s/p PICC on abx at home including Vancomicin, zosyn and metranidazole. Followed by ID who D/C'ed vancomicin yesterday due to Tinnitus (which resolved this morning). She now presents to the ED due to elevated BG at home. Pt was still on decadron 4 mg q 12 hrs. No headache. No pain. Walks with a cane (improving gait). Intermittent diplopia. VIPIN: Neck supple. NEURO: Awake, alert. Ox3. Able to open right eye, now with ptosis. Can adduct OD past the midline before fatigue. No drift. Normal strength. Normal reflexes except AJ's. Toes downgoing. Coord: No FTN dystaxia Sensory: Decreased vib toes Gait: sl wide-based. IMP: 1. Non-focal exam 2. Right thalamic abscess after dental abscess 3. Improving diqabetic CN III on the right. Suggest: Update CT of head prior to D/C Rapidly taper and D/C decadron: 2 mg q12 hrs x 2 days then D/C. ID and neuro f/u as out patient. Thank you very much, Lizandro Engle MD
[2018-07-30 19:58] LABS: ACETONE SERUM NEGATIVE (NEGATIVE)
--- NOTE | 2018-07-30 20:06 | PDOC ---
Documentation entered by Esperanza Yusuf SCRIBE, acting as scribe for Kelly Izquierdo DO. Kelly Izquierdo DO: This documentation has been prepared by the Madelin brown Daisy, SCRIBE, under my direction and personally reviewed by me in its entirety. I confirm that the documentation accurately reflects all work, treatment, procedures, and medical decision making performed by me. Attending Attestation - Resident Resident Name: Marlee Hernández - ED Attending Attestation I have performed the following: I have examined & evaluated the patient, The case was reviewed & discussed with the resident, I agree w/resident's findings & plan - HPI HPI: 07/30/18 18:13 The patient is a 68 YOF with a PMH of IDDM, CKD, HTN, HLD, Aortic Stenosis, Breast Ca s/p lumpectomy, probable Thalamic Abscess s/p PICC on abx who presents to the ED brought in by EMS for evaluation of hyperglycemia in the 400s earlier today. She has been taking all of her meds. Patient took her insulin last night and is due for it later tonight. She has no other complaints at this time. The patient denies chest pain, shortness of breath, headache and dizziness. Denies fever, chills, nausea, vomit, diarrhea and constipation. Denies dysuria, frequency, urgency and hematuria. Allergies: nkda PSH: lumpectomy PMD: Dr. Kinney - Physicial Exam PE: 07/30/18 18:21 ADULT PHYSICAL EXAM Constitutional: Awake, alert, oriented. No acute distress. Eyes: PERRL. EOMI. Conjunctivae are not pale. (+) ptosis of the R eye ENT: Mucous membranes are moist and intact. Posterior pharynx without exudates or erythema. Uvula midline. Neck: Supple. Full ROM. No lymphadenopathy. Cardiovascular: Regular rate. Regular rhythm. S1, S2 regular. Distal pulses are 2+ and symmetric. (+) 4/6 systolic ejection murmur Pulmonary/Chest: No evidence of respiratory distress. Clear to auscultation bilaterally No wheezing, rales or rhonchi. Abdominal: Soft and non-distended. There is no tenderness. No rebound, guarding or rigidity. No organomegaly. No palpable masses. Good bowel sounds. Musculoskeletal: No edema. No cyanosis. No clubbing. Full range of motion in all extremities. Nocalf tenderness. Radial/pedal pulses are intact and 2+ bilaterally Skin: Skin is warm and dry. No petechiae. No purpura. Neurological: Alert and oriented to person, place, and time. Cranial nerves II -XII are grossly intact. Normal speech. Strength is grossly symmetric. No sensory deficits. Psychiatric: Good eye contact. Normal interaction, affect and behavior. - Medical Decision Making 07/30/18 18:43 a/p: 68yo female with hx of DM with elevated bg at home - home monitor registered [id number] -per medics glucose was in 200s -bg was in 200s upon arrival in the ED -pt denies all complaints -uses insulin at night -no new neuro complaints -no cp/sob -will send labs, will hydrate -pt drinking water in NAD -family at the bedside, discussed the plan in full detail and all in agreement -pt is nontoxic in appearance 07/30/18 19:20 pt with recent brain abscess - followed by dr. ryan- on decadron at 4mg bid, which is increasing glucose glucose [address] ryan- obtain head ct, but ok to dc to home, improving neurologically , decrease decadron to 2mg bid x 2 days and then stop will follow with the patient on friday07/30/18 20:06 labs reviewed not in DKA stable for dc to home
== END 2018-07-30 20:38 | disposition home or self-care (01) ==
LOC: JER 16:32
DX: E11.65 Type 2 diabetes mellitus with hyperglycemia (principal); Z79.4 Long term (current) use of insulin; E78.5 Hyperlipidemia, unspecified; I12.9 Hypertensive chronic kidney disease with stage 1 through stage 4 chronic kidney disease, or unspecified chronic kidney disease; E11.22 Type 2 diabetes mellitus with diabetic chronic kidney disease; N18.9 Chronic kidney disease, unspecified; I35.0 Nonrheumatic aortic (valve) stenosis; G06.0 Intracranial abscess and granuloma; Z85.3 Personal history of malignant neoplasm of breast; Z79.2 Long term (current) use of antibiotics; I69.812 Visuospatial deficit and spatial neglect following other cerebrovascular disease; I69.898 Other sequelae of other cerebrovascular disease
CPT/HCPCS: 36415; 70450-TC; 80053; 81003; 82009; 82803; 82962; 83735; 85025; 99282-25

== ENCOUNTER 2018-08-03 22:13 | Observation (INO) | payer OTHER ==
--- NOTE | 2018-08-03 22:24 | PDOC ---
History of Present Illness - General Stated Complaint: SYNCOPY Time Seen by Provider: 08/03/18 22:24 History Source: Family (Son) Exam Limitations: Clinical Condition - History of Present Illness Initial Comments: Pt is a 68 yo F, with PMH of IDDM, HTN, HLD, CKD, , breast CA (s/p radiation and lumpectomy, finished in 2011), and recent thalamic abscess/CVA (on ASA, plavix, and abx via PICC), who is presenting with generalized fatigue, 2 episodes of NBNB vomiting after eating, and syncopal episode (~5 mins) since this AM. Family states the pt has been improving since her recent admission for thalamic abscess, and has been taking her abx via PICC line as prescribed. Pt was recently admitted (07/03) after returning from after a dental procedure and presenting with CN 3 palsy (ptosis and gait instability, walking with cane) ; MRI subsequently showed thalamic lesion. This AM, the pt had generalized fatigue/weakness, had difficulty tolerating PO intake, with a mild frontal headache. When she got up to walk with assistance, she had a syncopal episode (~ 5 minutes), with no generalized shaking, incontinence, nor tongue biting. Pt and family denies any fevers/chills, chest pain, palpitations, SOB, urinary symptoms, diarrhea/constipation, or leg swelling. Social: Pt denies any cigarette, alcohol, or drug use. No sick contacts. Traveled to in June 2018 for dental procedure, see above. Surgical: no relevant history. Family: no relevant history. 08/04/18 00:21 NIH Stroke Scale - Last Known Well Date/Time & Onset Date Last Known Well: 08/02/18 Time Last Known Well: 22:00 - Initial Evaluation Level of consciousness: Not alert, but arousable with minimal stimulation Ask patient the month and their age: Answers one correctly Ask patient to open & close eyes; make fist and let go: Obeys both correctly Best gaze (horizontal eye movement): Normal Visual field testing: No visual field loss Facial paresis (Show teeth/raise eyebrows/close eyes tight): Minor paralysis ( flattened nasolabial fold, asymmetry on smiling) (cranial nerve 3 palsy (ptosis of R eye)) Motor Function: Left Arm: Normal Motor Function: Right Arm: Normal (extends arm 90 (or 45) degrees for 10 seconds without drift Motor Function: Left Leg: Normal (extends leg 30 degrees for 5 seconds without drift) Motor Function: Right Leg: Normal (extends leg 30 degrees for 5 seconds without drift) Limb Ataxia: No ataxia Sensory(Use pinprick test arms,legs,trunk,face/side to side): Normal Best language (Describe picture, name items, read sentences): No Aphasia Dysarthria (read several words): Normal articulation Extinction and Inattention: No abnormality - Total Score NIH Stroke Scale Score: 3 Past History - Travel Traveled outside of the country in the last 30 days: No Close contact w/someone who was outside of country & ill: No - Past Medical History Allergies/Adverse Reactions: Allergies Allergy/AdvReac Type Severity Reaction Status Date / Time No Known Drug Allergies Allergy Verified 08/03/18 22:48 Home Medications: Ambulatory Orders Alendronate Sodium [Fosamax] 70 mg PO WEEKLY 01/02/15 Aspirin [ASA -] 81 mg PO DAILY 01/02/15 Atorvastatin Ca [Lipitor] 80 mg PO HS 01/02/15 Calcium Carbonate/Vitamin D3 [Calcium 600-Vit D3 800 Caplet] 1 each PO DAILY Chlorthalidone 25 mg PO DAILY 01/02/15 Famotidine 40 mg PO DAILY 01/02/15 Insulin Glargine,Hum.rec.anlog [Lantus (10mL VIAL) -] 50 units SQ HS 01/02/15 Lisinopril [Prinivil -] 40 mg PO DAILY 01/02/15 Metoprolol Tartrate 50 mg PO BID 01/02/15 Nifedipine [Nifedipine ER] 60 mg PO BID 01/02/15 Clopidogrel Bisulfate [Clopidogrel] 75 mg PO DAILY 07/03/18 Dulaglutide [Trulicity] 0.75 mg SQ WEEKLY 07/03/18 Fluticasone Prop 0.05% Nasal [Flonase -] 1 - 2 spray NS DAILY 07/03/18 Dexamethasone [Decadron] 4 mg PO Q12H 14 Days #28 tablet 07/17/18 Divalproex *ER* [Depakote *ER* -] 500 mg PO HS 30 Days #30 tablet.sa 07/17/18 Metronidazole 500 mg IV Q8H 42 Days tablet 07/17/18 Miscellaneous Medical Supply [Outpatient Order] [facility] [Outpatient Order] 1 each ASDIR #1 misc Piperacillin/Tazob 2.25 gm [Zosyn -] 2.25 gm IVPB Q8H vial 07/17/18 Sumatriptan Succinate [Imitrex -] 100 mg PO DAILY PRN 15 Days #30 tablet Vancomycin HCl 1,250 mg IVPB Q24H vial 07/17/18 Cancer: Yes (BREAST CANCER) CVA: Yes (06/2018 right ocular eye weakness/confusion) COPD: No Diabetes: Yes (IDDM) HTN: Yes - Immunization History Immunization Up to Date: (Unknown) - Suicide/Smoking/Psychosocial Hx Smoking History: Never smoked Have you smoked in the past 12 months: No Number of Cigarettes Smoked Daily: 2,010 Hx Alcohol Use: No Drug/Substance Use Hx: No Substance Use Type: None Review of Systems - Review of Systems Able to Perform ROS?: Yes Is the patient limited Nicaraguan proficient: No Constitutional: Yes: Loss of Appetite, Malaise, Weakness, Weight Stable. No: Chills, Diaphoresis, Fever, Night Sweats HEENTM: Yes: Double Vision (double vision which has been improving), Tinnitus ( vanc reduced). No: Ear Pain, Nose Congestion, Hearing Loss, Throat Pain, Throat Swelling, Difficulty Swallowing Respiratory: No: Cough, Orthopnea, Shortness of Breath Cardiac (ROS): Yes: Syncope. No: Chest Pain, Edema, Irregular Heart Rate, Lightheadedness, Palpitations, Chest Tightness ABD/GI: Yes: See HPI, Nausea, Poor Appetite, Poor Fluid Intake, Vomiting, Abdominal cramping. No: Abdominal Distended, Blood Streaked Bowels, Constipated , Diarrhea, Rectal Bleeding : No: Burning, Dysuria, Pain, Urgency Musculoskeletal: Yes: Muscle Weakness (weakness and fatigue today, syncope while walking). No: Back Pain, Joint Pain, Muscle Pain Integumentary: No: Rash Neurological: Yes: See HPI, Headache, Pre-Existing Deficit (R eye palsy), Unsteady Gait. No: Numbness, Paresthesia, Seizure, Tremors, Weakness, Ataxia, Dizziness Psychiatric: No: Sleep Pattern Change, Change in Appetite Endocrine: No: Increased Urine, Change in Weight Hematologic/Lymphatic: No: Anemia, Blood Clots, Easy Bleeding, Easy Bruising All Other Systems: Reviewed and Negative *Physical Exam - Vital Signs Vital Signs Temperature 98.4 F 08/03/18 22:15 Pulse Rate 70 08/03/18 22:15 Respiratory Rate 19 08/03/18 22:15 Blood Pressure 115/84 08/03/18 22:15 O2 Sat by Pulse Oximetry (%) 97 08/03/18 22:15 08/03/18 23:58 - Physical Exam Comments: Vitals stable, pt afebrile. Pt in NAD, but appears lethargic. Normal body habitus. Pt alert and oriented x2, does not remember the day or month. Ptosis of R eye with mild dilation of R pupil (4 mm compared to 3 mm on L). panel maker otherwise intact. Muscular strength and sensation intact, no limb drift. No midline spinal tenderness, step-offs, or crepitus. Head normocephalic, atraumatic. Eyes PERRLA, EOMI. Oropharynx without erythema or exudates, no LAD b/l. Dry oral mucosa. No nasal congestion, hearing intact. Clear heart sounds, systolic murmur loudest over aortic area; no JVD, b/l pedal edema. PICC line in R upper chest wall, no erythema or drainage. Clear lung sounds, no respiratory distress, wheezes, crackles, or accessory muscle use. No abdominal or CVA tenderness to palpation, no rebound, no guarding. Abdomen soft, non-distended, and with normoactive bowel sounds. Skin without jaundice or rash. 08/03/18 23:58 Medical Decision Making - Medical Decision Making Pt was seen at bedside, also will be seen by attending Dr. Rebolledo. Pt presenting with generalized fatigue, 2 episodes of NBNB vomiting after eating, and syncopal episode (~5 mins) since this AM. Family states the pt has been improving since her recent admission for thalamic abscess, and has been taking her abx via PICC line as prescribed. Pt was recently admitted (07/03) after returning from after a dental procedure and presenting with CN 3 palsy ( ptosis and gait instability, walking with cane); MRI subsequently showed thalamic lesion. This AM, the pt had generalized fatigue/weakness, had difficulty tolerating PO intake, with a mild frontal headache. When she got up to walk with assistance, she had a syncopal episode (~5 minutes), with no generalized shaking, incontinence, nor tongue biting. Pt and family denies any fevers/chills, chest pain, palpitations, SOB, urinary symptoms, diarrhea/ constipation, or leg swelling. Considering worsening extension of abscess/midline shift vs migraine vs venous thrombosis vs viral illness/influenza vs bacterial infection (meningitis, enteritis) vs seizure. Ordered work-up including CBC, CMP, Mg, Phos, lactic acid, coags, blood cultures , UA, urine culture, troponin, ECG, chest x-ray, and non-contrast CT head. Provided 100 mg imitrex (home dose), 4 mg IV zofran, 1 L IV NS for improvement of nausea and headache. Will continue to reassess pt and monitor for symptomatic improvement. ECG: NSR, LVH, intervals WNL (HR 66, NY 166, QRS 94, QTC 429). Elevation in V2 with no reciprocal change. No significant changes from prior ECG. Pt signed out to night team (Dr. Galloway). 08/04/18 00:04 *DC/Admit/Observation/Transfer Diagnosis at time of Disposition: Syncope and collapse - Discharge Dispostion Condition at time of disposition: Stable - Referrals - Patient Instructions - Post Discharge Activity
[2018-08-03] MEDS ORDERED: SODIUM CHLORIDE 1,000 ML IV STA (23:41)
[2018-08-03] MEDS ORDERED: ONDANSETRON 4 MG/2 ML VIAL IVPUSH ONE (23:41)
[2018-08-03] MEDS ORDERED: SUMAtriptan SUCCINATE 50 MG TABLET PO SCH (23:45)
[2018-08-03] MEDS ORDERED: ONDANSETRON 4 MG/2 ML VIAL ONE (23:54)
[2018-08-03] MEDS ORDERED: SUMAtriptan SUCCINATE 50 MG TABLET PO STA (23:54)
[2018-08-04 00:30] LABS: BASO % 1.1 % (0-2.0); EOS % 0.8 % (0-4.5); HEMATOCRIT 31.1 % (32.4-45.2); HEMOGLOBIN 10.3 GM/dL (10.7-15.3); LYMPH % 15.5 % (8-40); MCH 25.9 pg (25.7-33.7); MCHC 33.2 g/dl (32.0-36.0); MEAN CELL VOLUME 77.9 fl (80-96); MEAN PLT VOLUME 9.2 fl (7.5-11.1); MONO % 6.7 % (3.8-10.2); NEUT % 75.9 % (42.8-82.8); PLATELET COUNT 144 K/MM3 (134-434); RBC 3.99 M/mm3 (3.60-5.2); WHITE BLOOD COUNT 7.9 K/mm3 (4.0-10.0)
[2018-08-04 00:56] LABS: ALBUMIN 2.7 g/dl (3.4-5.0); ALK PHOS 71 U/L (45-117); ANION GAP 8 MMOL/L (8-16); BILIRUBIN,TOTAL 0.2 mg/dL (0.2-1); BLOOD UREA NITROGEN 36 mg/dL (7-18); CALCIUM 8.5 mg/dL (8.5-10.1); CHLORIDE 100 mmol/L (98-107); CO2 25 mmol/L (21-32); CREATININE 1.1 mg/dL (0.55-1.3); GLUCOSE,RANDOM 166 mg/dL (74-106); INR 1.02 (0.83-1.09); PHOSPHOROUS 4.5 mg/dL (2.5-4.9); POTASSIUM 4.3 mmol/L (3.5-5.1); SGOT/AST 23 U/L (15-37); SGPT/ALT 34 U/L (13-61); SODIUM 133 mmol/L (136-145); TOT PROT 5.6 g/dl (6.4-8.2)
[2018-08-04 00:57] LABS: MAGNESIUM 1.9 mg/dL (1.8-2.4)
[2018-08-04 02:23] LABS: EPI CELLS 1.2 /HPF (0-5/HPF); PH,URINE 6.5 (5.0-8.0); URINE APPEARANCE CLEAR; URINE BACTERIA 0.3 /hpf (NEGATIVE); URINE BILIRUBIN NEGATIVE (NEGATIVE); URINE CASTS 2 /lpf (0-8); URINE COLOR YELLOW; URINE GLUCOSE (UA) NEGATIVE (NEGATIVE); URINE KETONE NEGATIVE (NEGATIVE); URINE LEUK ESTERASE TRACE (NEGATIVE); URINE NITRITE NEGATIVE (NEGATIVE); URINE PROTEIN NEGATIVE (NEGATIVE); URINE RBC 0 /hpf (0-4); URINE UROBILINOGEN 0.2 mg/dL (0.2-1.0); URINE WBC 2 /hpf (0-5)
--- NOTE | 2018-08-04 03:14 | PN ---
Teaching Attending Note Name of Resident: Pearl Segovia ATTENDING PHYSICIAN STATEMENT I saw and evaluated the patient. I reviewed the resident's note and discussed the case with the resident. I agree with the resident's findings and plan as documented. SUBJECTIVE: Seen and examined; please see resident note for further historical details. Briefly, this is a 68 y/o female presenting to the ER with syncope. She was being treated with zosyn/flagyl via PICC line for suspected thalamic abscess by her neurologist (developed stroke-like sx after having tooth extraction in [facility]). 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 She was discharged at the beginning of the month with 6 weeks of IV abx with plans for repeat MRI ~3 weeks post DC and close followup with ID and neuro. She was seen again here on the by Dr. Engle in the ER and tapered off of decadron as she presented for hyperglycemia; CT head was checked at that time and showed improvement at the R-thalamic focus and she was discharged home. Today, she had generalized fatigue/weakness, had difficulty tolerating PO intake, with a mild frontal headache. Her BP dropped to 80/40 at home; she went to [facility] and then came back home due to concerns. They returned home. When she got up to walk with assistance, she had a syncopal episode (~5 minutes), with no generalized shaking, incontinence, nor tongue biting. She has not had any issues with LOC, etc. since. ER gave her home dose of imitrex (for the headache ) and hydrated her with 1L isotonic. Per ER documentation regarding today's imaging: "I spoke with the radiologist Dr Zach Uribe and we sent him the ct head from July 30 for comparison and there is no acute findings - NO acute bleed and he felt that there was no evidence for an abscess. Instead he felt the area was improving, involuting." I am told ER called production statistical clerk neurology; they will see the patient in the morning 10 sys ROS done and negative aside from HPI PMH, PSH, FH, SH reviewed Home Medications Medication Instructions Recorded Alendronate Sodium [Fosamax] 70 mg PO WEEKLY 09/21/15 Aspirin [ASA -] 81 mg PO DAILY 01/02/15 Atorvastatin Ca [Lipitor] 80 mg PO HS 01/02/15 Calcium Carbonate/Vitamin D3 1 each PO DAILY 01/02/15 [Calcium 600-Vit D3 800 Caplet] Chlorthalidone 25 mg PO DAILY 01/02/15 Famotidine 40 mg PO DAILY 01/02/15 Insulin Glargine,Hum.rec.anlog 50 units SQ HS 01/02/15 [Lantus (10mL VIAL) -] Lisinopril [Prinivil -] 40 mg PO DAILY 01/02/15 Metoprolol Tartrate 50 mg PO BID 01/02/15 Nifedipine [Nifedipine ER] 60 mg PO BID 01/02/15 Clopidogrel Bisulfate [Clopidogrel] 75 mg PO DAILY 07/03/18 Dulaglutide [Trulicity] 0.75 mg SQ WEEKLY 07/03/18 Fluticasone Prop 0.05% Nasal 1 - 2 spray NS DAILY 07/03/18 [Flonase -] Dexamethasone [Decadron] 4 mg PO Q12H 14 Days #28 tablet 07/17/18 Divalproex *ER* [Depakote *ER* -] 500 mg PO HS 30 Days #30 tablet.sa 07/17/18 Metronidazole 500 mg IV Q8H 42 Days tablet 07/17/18 Miscellaneous Medical Supply 1 [place] [facility] [place]17/18 [Outpatient Order] Miscellaneous Medical Supply 1 each [place] [facility] [place]/17/18 [Outpatient Order] Piperacillin/Tazob 2.25 gm [Zosyn 2.25 gm IVPB Q8H vial 07/17/18 -] Sumatriptan Succinate [Imitrex -] 100 mg PO DAILY PRN 15 Days #30 07/17/18 tablet Vancomycin HCl 1,250 mg IVPB Q24H vial 07/17/18 OBJECTIVE: VS, labs, imaging reviewed NAD, AAO, resting comfortably in bed MRI 07/03 reviewed; 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 If + can consider adding CAROL hose -Can consider autonomic instability with recent cessasion of steroids -Neuro checks and seizure precautions given her recent neuro issues. Checking repeat MRI as ~3 weeks out -Fall precautions while inpatient 2) R-Thalamic Abscess -Consult Dr. Stout for continued abx; appreciate expert input. -Recently tapered off of decadron. Repeating MRI w/ and w/o contrast 3) Hx Migraines -Continue depakote 500mg PO qHS, MT 50mg BID, and sumatriptan 100mg PRN breakthrough 4) CKD -Baseline Cr documented as 1.5; trend BMP and monitor UOP. 5) Hx CVA -Continue with home ASA, Plavix, Statin. No new fnd's. Monitor neuro exam. 6) Hx Aortic Stenosis -Nonacute and known; systolic murmur noted on cardiac examination. Avoid hypotension, followup as OP 7) Hx HTN -Verify and continue home meds 8) Hx HLD -Continue statin 9) Hx Breast CA -Remote; nonacute. May followup outpatient with PCP. 10) Hx CAD -Verify and continue home medications
--- NOTE | 2018-08-04 03:37 | PDOC ---
*Physical Exam - Vital Signs Last Vital Signs Temp Pulse Resp BP Pulse Ox 98.4 F 70 19 115/84 97 08/03/18 22:15 08/03/18 22:15 08/03/18 22:15 08/03/18 22:15 08/03/18 22:15 ED Treatment Course - LABORATORY CBC & Chemistry Diagram: 08/04/18 00:11 08/04/18 00:11 - ADDITIONAL ORDERS Additional order review: Laboratory Results 08/04/18 08/04/18 08/04/18 02:05 01:25 00:11 PT with INR INR Sodium Potassium Chloride Carbon Dioxide Anion Gap BUN Creatinine Creat Clearance w eGFR POC Glucometer 140 Random Glucose Lactic Acid 0.8 Calcium Phosphorus Magnesium Total Bilirubin AST ALT Alkaline Phosphatase Creatine Kinase Troponin I Total Protein Albumin Urine Color Yellow Urine Appearance Clear Urine pH 6.5 Ur Specific Vic[place] 1.011 Urine Protein Negative Urine Glucose (UA) Negative Urine Ketones Negative Urine Blood Negative Urine Nitrite Negative Urine Bilirubin Negative Urine Urobilinogen 0.2 Ur Leukocyte Esterase Trace Urine WBC (Auto) 2 Urine RBC (Auto) 0 Urine Casts (Auto) 2 U Epithel Cells (Auto) 1.2 Urine Bacteria (Auto) 0.3 08/04/18 08/04/18 00:11 00:11 PT with INR 12.00 INR 1.02 Sodium 133 L Potassium 4.3 Chloride 100 Carbon Dioxide 25 Anion Gap 8 BUN 36 H Creatinine 1.1 Creat Clearance w eGFR 49.39 POC Glucometer Random Glucose 166 H Lactic Acid Calcium 8.5 Phosphorus 4.5 Magnesium 1.9 Total Bilirubin 0.2 AST 23 ALT 34 Alkaline Phosphatase 71 Creatine Kinase 34 Troponin I < 0.02 Total Protein 5.6 L Albumin 2.7 L Urine Color Urine Appearance Urine pH Ur Specific Vic[place] Urine Protein Urine Glucose (UA) Urine Ketones Urine Blood Urine Nitrite Urine Bilirubin Urine Urobilinogen Ur Leukocyte Esterase Urine WBC (Auto) Urine RBC (Auto) Urine Casts (Auto) U Epithel Cells (Auto) Urine Bacteria (Auto) 08/04/18 08/04/18 01:25 00:11 RBC 3.99 MCV 77.9 L MCHC 33.2 RDW 19.0 H MPV 9.2 Neutrophils % 75.9 Lymphocytes % 15.5 Monocytes % 6.7 Eosinophils % 0.8 Basophils % 1.1 POC Glucometer 140 - Medications Given in the ED: ED Medications Discontinued Medications Generic Name Dose Route Start Last Admin Trade Name Gisell PRN Reason Stop Dose Admin Sodium Chloride 1,000 mls @ 1,000 mls/hr 08/03/18 23:41 08/04/18 00:20 Normal Saline - IV 08/04/18 00:40 1,000 mls/hr ASDIR STA Administration Ondansetron HCl 4 mg 08/03/18 23:41 08/04/18 00:20 Zofran Injection IVPUSH 08/03/18 23:42 4 mg ONCE ONE Administration Sumatriptan Succinate 100 mg 08/03/18 23:54 08/04/18 01:02 Imitrex - PO 08/03/18 23:55 100 mg ONCE STA Administration *DC/Admit/Observation/Transfer Diagnosis at time of Disposition: Syncope and collapse - Discharge Dispostion Condition at time of disposition: Stable Decision to Admit order: Yes - Referrals Referrals: ON STAFF,NOT [Primary Care Provider] - - Patient Instructions - Post Discharge Activity
[2018-08-04] MEDS ORDERED: SUMAtriptan SUCCINATE 50 MG TABLET PO PRN (04:16)
--- NOTE | 2018-08-04 04:29 | HP ---
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 Per son at bedside, Pt's home blood pressure was measured low and they went to [facility] ED, decided to leave and come to [facility] since prior care was here. En route, Pt had episode of NBNB vomiting. Upon arriving home, Pt syncopized after standing up to go to the bathroom for 5 minutes; no tonic-clonic activity, no incontinence, no tongue-biting, no post-ictal period. Further developed headache en route to [facility] ED. Upon presentation, Pt was afebrile w/ stable vitals including BP 115/84. Labs unremarkable apart from mild hyponatremia to 133. CT head showed partial resolution of the thalamic lesion. Pt had been due for repeat MRI approximately 3 weeks from prior discharge. ROS otherwise negative. ED provided sumatriptan, NS 1L bolus, Zofran , and consulted Dr. Dykes from neurology. Headache had resolved by time of encounter and Pt was feeling well. Recent Travel: To for dental procedure prior to most recent hospitalization PAST MEDICAL HISTORY: As per HPI PAST SURGICAL HISTORY: As per HPI Social History: Smoking: No Alcohol: No Drugs: No Family History: Allergies No Known Drug Allergies Allergy (Verified 08/03/18 22:48) HOME MEDICATIONS: Home Medications Medication Instructions Recorded Alendronate Sodium [Fosamax] 70 mg PO WEEKLY 01/02/15 Aspirin [ASA -] 81 mg PO DAILY 01/02/15 Atorvastatin Ca [Lipitor] 80 mg PO HS 01/02/15 Calcium Carbonate/Vitamin D3 1 each PO DAILY 01/02/15 [Calcium 600-Vit D3 800 Caplet] Chlorthalidone 25 mg PO DAILY 01/02/15 Famotidine 40 mg PO DAILY 01/02/15 Insulin Glargine,Hum.rec.anlog 50 units SQ HS 01/02/15 [Lantus (10mL VIAL) -] Lisinopril [Prinivil -] 40 mg PO DAILY 01/02/15 Metoprolol Tartrate 50 mg PO BID 01/02/15 Nifedipine [Nifedipine ER] 60 mg PO BID 01/02/15 Clopidogrel Bisulfate [Clopidogrel] 75 mg PO DAILY 07/03/18 Dulaglutide [Trulicity] 0.75 mg SQ WEEKLY 07/03/18 Fluticasone Prop 0.05% Nasal 1 - 2 spray NS DAILY 07/03/18 [Flonase -] Dexamethasone [Decadron] 4 mg PO Q12H 14 Days #28 tablet 07/17/18 Divalproex *ER* [Depakote *ER* -] 500 mg PO HS 30 Days #30 tablet.sa 07/17/18 Metronidazole 500 mg IV Q8H 42 Days tablet 07/17/18 Miscellaneous Medical Supply 1 each ASDIR #1 [facility] [place] 07/17/18 [Outpatient Order] Miscellaneous Medical Supply 1 each ASDIR #1 [facility] [place] 07/17/18 [Outpatient Order] Piperacillin/Tazob 2.25 gm [Zosyn 2.25 gm IVPB Q8H vial 07/17/18 -] Sumatriptan Succinate [Imitrex -] 100 mg PO DAILY PRN 15 Days #30 07/17/18 tablet Vancomycin HCl 1,250 mg IVPB Q24H vial 07/17/18 REVIEW OF SYSTEMS As per HPI PHYSICAL EXAMINATION Vital Signs - 24 hr 08/03/18 22:15 Temperature 98.4 F Pulse Rate 70 Respiratory 19 Rate Blood Pressure 115/84 O2 Sat by Pulse 97 Oximetry (%) GENERAL: A&Ox3, NAD HEAD: NC/AT EYES: Pupils reactive b/l, R pupil sluggish, EOMI, R-sided ptosis EARS, NOSE, THROAT: Ears normal, nares patent, oropharynx clear without exudates. Moist mucous membranes. NECK: Normal range of motion, supple without lymphadenopathy, JVD, or masses. LUNGS: CTA b/l HEART: RRR, holosystolic murmur ABDOMEN: +bs, soft, NT, ND UPPER EXTREMITIES: 2+ pulses, warm, well-perfused. No cyanosis. No clubbing. No peripheral edema. LOWER EXTREMITIES: 2+ pulses, warm, well-perfused. No calf tenderness. No peripheral edema. NEUROLOGICAL: Right CNIII palsy as above, otherwise no focal deficit of CN, motor, sensory, or cerebellar systems. Gait not observed. PSYCHIATRIC: Cooperative. Good eye contact. Appropriate mood and affect. SKIN: Warm, dry, normal turgor, no rashes or lesions noted, normal capillary refill. Laboratory Results - last 24 hr 08/04/18 08/04/18 08/04/18 00:11 00:11 00:11 WBC 7.9 RBC 3.99 Hgb 10.3 L Hct 31.1 L MCV 77.9 L MCH 25.9 MCHC 33.2 RDW 19.0 H Plt Count 144 MPV 9.2 Absolute Neuts (auto) 6.0 Neutrophils % 75.9 Lymphocytes % 15.5 Monocytes % 6.7 Eosinophils % 0.8 Basophils % 1.1 Nucleated RBC % 0 PT with INR 12.00 INR 1.02 Sodium 133 L Potassium 4.3 Chloride 100 Carbon Dioxide 25 Anion Gap 8 BUN 36 H Creatinine 1.1 Creat Clearance w eGFR 49.39 POC Glucometer Random Glucose 166 H Lactic Acid Calcium 8.5 Phosphorus 4.5 Magnesium 1.9 Total Bilirubin 0.2 AST 23 ALT 34 Alkaline Phosphatase 71 Creatine Kinase 34 Troponin I < 0.02 Total Protein 5.6 L Albumin 2.7 L Urine Color Urine Appearance Urine pH Ur Specific [place] Urine Protein Urine Glucose (UA) Urine Ketones Urine Blood Urine Nitrite Urine Bilirubin Urine Urobilinogen Ur Leukocyte Esterase Urine WBC (Auto) Urine RBC (Auto) Urine Casts (Auto) U Epithel Cells (Auto) Urine Bacteria (Auto) Influenza A (Rapid) Influenza B (Rapid) 08/04/18 08/04/18 08/04/18 00:11 00:12 01:25 WBC RBC Hgb Hct MCV MCH MCHC RDW Plt Count MPV Absolute Neuts (auto) Neutrophils % Lymphocytes % Monocytes % Eosinophils % Basophils % Nucleated RBC % PT with INR INR Sodium Potassium Chloride Carbon Dioxide Anion Gap BUN Creatinine Creat Clearance w eGFR POC Glucometer 140 Random Glucose Lactic Acid 0.8 Calcium Phosphorus Magnesium Total Bilirubin AST ALT Alkaline Phosphatase Creatine Kinase Troponin I Total Protein Albumin Urine Color Urine Appearance Urine pH Ur Specific [place] Urine Protein Urine Glucose (UA) Urine Ketones Urine Blood Urine Nitrite Urine Bilirubin Urine Urobilinogen Ur Leukocyte Esterase Urine WBC (Auto) Urine RBC (Auto) Urine Casts (Auto) U Epithel Cells (Auto) Urine Bacteria (Auto) Influenza A (Rapid) Negative Influenza B (Rapid) Negative 08/04/18 02:05 WBC RBC Hgb Hct MCV MCH MCHC RDW Plt Count MPV Absolute Neuts (auto) Neutrophils % Lymphocytes % Monocytes % Eosinophils % Basophils % Nucleated RBC % PT with INR INR Sodium Potassium Chloride Carbon Dioxide Anion Gap BUN Creatinine Creat Clearance w eGFR POC Glucometer Random Glucose Lactic Acid Calcium Phosphorus Magnesium Total Bilirubin AST ALT Alkaline Phosphatase Creatine Kinase Troponin I Total Protein Albumin Urine Color Yellow Urine Appearance Clear Urine pH 6.5 Ur Specific [place] 1.011 Urine Protein Negative Urine Glucose (UA) Negative Urine Ketones Negative Urine Blood Negative Urine Nitrite Negative Urine Bilirubin Negative Urine Urobilinogen 0.2 Ur Leukocyte Esterase Trace Urine WBC (Auto) 2 Urine RBC (Auto) 0 Urine Casts (Auto) 2 U Epithel Cells (Auto) 1.2 Urine Bacteria (Auto) 0.3 Influenza A (Rapid) Influenza B (Rapid) ASSESSMENT/PLAN: 68 y/o F w/ PMHx IDDM, HTN, HLD, CKD, , breast Ca s/p lumpectomy and RT, 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 Dykes from neurology -ID consulted, Dr. Stout following -restarted Vancomycin/Zosyn/Flagyl -brain MRI w/ and w/o contrast ordered -orthostatic vitals -echocardiogram -restarted home Nifedipine, Lopressor, chlorthalidone, Lipitor, ASA, Plavix, Valproate -BGM, SSI ACHS -diabetic diet -f/u BMP, Mg, Phos -may consider checking cortisol -no IVF -mechanical DVT PPx -full code -observe on telemetry Visit type - Emergency Visit Emergency Visit: Yes ED Registration Date: 08/04/18 Care time: The patient presented to the Emergency Department on the above date and was hospitalized for further evaluation of their emergent condition. - New Patient This patient is new to me today: Yes Date on this admission: 08/04/18 - Critical Care Critical Care patient: No
[2018-08-04] MEDS ORDERED: PIPERACILLIN/TAZOBACTAM 2.25 GM VIAL IVPB SCH (04:30)
[2018-08-04] MEDS ORDERED: VANCOMYCIN HCL IVPB SCH (04:30)
[2018-08-04] MEDS: PIPERACILLIN/TAZOB 2.25 GM 2.25 GM in DEXTROSE 5%-WATER - 50 ML IVPB SCH ×3 (05:20→18:04)
[2018-08-04 06:16] LABS: BASO % 0.9 % (0-2.0); EOS % 1.4 % (0-4.5); HEMATOCRIT 32.5 % (32.4-45.2); HEMOGLOBIN 10.7 GM/dL (10.7-15.3); LYMPH % 25.1 % (8-40); MCH 25.7 pg (25.7-33.7); MEAN CELL VOLUME 77.7 fl (80-96); MEAN PLT VOLUME 9.2 fl (7.5-11.1); MONO % 6.8 % (3.8-10.2); NEUT % 65.8 % (42.8-82.8); PLATELET COUNT 157 K/MM3 (134-434); RBC 4.18 M/mm3 (3.60-5.2); RDW 19.4 % (11.6-15.6)
[2018-08-04] MEDS ORDERED: PIPERACILLIN/TAZOB 2.25 GM 2.25 GM/50 ML BAG IVPB ONE ×3 (06:18→17:00)
[2018-08-04 06:49] LABS: ANION GAP 7 MMOL/L (8-16); BLOOD UREA NITROGEN 28 mg/dL (7-18); CALCIUM 9.1 mg/dL (8.5-10.1); CHLORIDE 104 mmol/L (98-107); CO2 27 mmol/L (21-32); CREATININE 1.1 mg/dL (0.55-1.3); GLUCOSE,RANDOM 106 mg/dL (74-106); MAGNESIUM 2.1 mg/dL (1.8-2.4); PHOSPHOROUS 4.1 mg/dL (2.5-4.9); POTASSIUM 4.3 mmol/L (3.5-5.1); SODIUM 138 mmol/L (136-145)
[2018-08-04] MEDS: INSULIN SLIDING SCALE (NOVOLOG) 1 VIAL SQ SCH ×4 (06:51→22:04)
[2018-08-04] MEDS ORDERED: CHLORTHALIDONE 25 MG TABLET PO SCH (10:00)
[2018-08-04] MEDS: METOPROLOL TARTRATE 50 MG TABLET (FP) PO SCH ×2 (10:23→21:56)
[2018-08-04] MEDS: ASPIRIN 81 MG CHEWABLE TABLETS PO SCH (10:23)
[2018-08-04] MEDS: CLOPIDOGREL BISULFATE 75 MG TABLET (FP) PO SCH (10:23)
[2018-08-04] MEDS: RANITIDINE HCL 150 MG TABLET (FP) PO SCH (10:24)
[2018-08-04] MEDS: NIFEdipine E.R 60 MG TABLET (UD) PO SCH ×2 (10:24→21:56)
[2018-08-04] MEDS: LISINOPRIL 20 MG TABLET (FP) PO SCH (10:24)
--- NOTE | 2018-08-04 12:21 | EKG ---
Test Reason : Blood Pressure : / mmHG Vent. Rate : 059 BPM Atrial Rate : 059 BPM P-R Int : 170 ms QRS Dur : 102 ms QT Int : 410 ms P-R-T Axes : 049 004 -38 degrees QTc Int : 405 ms SINUS BRADYCARDIA T WAVE ABNORMALITY, CONSIDER INFEROLATERAL ISCHEMIA ABNORMAL ECG WHEN COMPARED WITH ECG OF 03-AUG-2018 23:05, NO SIGNIFICANT CHANGE WAS FOUND Confirmed by MD ROD, SHAZIA ([id number]) on 08/04/2018 12:21:17 PM Referred By: BETH BABB Confirmed By:SHAZIA VELASCO MD
--- NOTE | 2018-08-04 12:28 | EKG ---
Test Reason : Blood Pressure : / mmHG Vent. Rate : 066 BPM Atrial Rate : 066 BPM P-R Int : 166 ms QRS Dur : 094 ms QT Int : 410 ms P-R-T Axes : 046 -03 -15 degrees QTc Int : 429 ms NORMAL SINUS RHYTHM POSSIBLE LEFT ATRIAL ENLARGEMENT LEFT VENTRICULAR HYPERTROPHY ABNORMAL ECG Confirmed by MD ROD, SHAZIA (2012) on 08/04/2018 12:28:28 PM Referred By: Confirmed By:SHAZAI VELASCO MD
--- NOTE | 2018-08-04 12:29 | ECHO ---
Version: 1 Name: REINALDO LEPE Exam: Adult Echocardiogram Study Date: 08/04/2018, 9:49 AM Age: 68 Years MMode/2D Measurements & Calculations IVSd: 1.10 cm LVIDs: 3.5 cm LVIDd: 4.7 cm LVPWd: 1.05 cm LVOT diam: 2.00 cm Ao root diam: 2.7 cm LA dimension: 4.0 cm Doppler Measurements & Calculations MV E max alin: 54.8 cm/sec Med E/e': 19.0 MV A max alin: 63.7 cm/sec Med Peak E' Alin: 2.9 cm/sec MV E/A: 0.86 Lat E/e': 15.3 Lat Peak E' Alin: 3.6 cm/sec Ao max P.2 mmHg JULIO(I,D): 0.98 cm Ao mean P.5 mmHg LV V1 mean: 53.6 cm/sec Ao V2 max: 300.8 cm/sec LV V1 mean P.39 mmHg AI P1/2t: 481.2 msec TR max alin: 131.2 cm/sec TR max P.9 mmHg Procedure A complete two-dimensional transthoracic echocardiogram was performed (2D, M-mode, Doppler and color flow Doppler). Left Ventricle The left ventricular size, thickness and function are normal. Ejection Fraction = 60%. The transmitr al spectral Doppler flow pattern is suggestive of impaired LV relaxation. Right Ventricle The right ventricle is normal in size and function. Atria Normal left and right atrial size and function. Mitral Valve There is moderate mitral valve thickening. There is trace mitral regurgitation. Tricuspid Valve The tricuspid valve is normal in structure and function. There is trace tricuspid regurgitation. Dop pler findings do not suggest pulmonary hypertension. There was insufficient TR detected to calculate RV s ystolic pressure. Aortic Valve There is moderate to severe aortic valve thickening. Moderate valvular aortic stenosis. Aortic mean pressure gradient= 18.5. Moderate aortic regurgitation. Pulmonic Valve The pulmonic valve is not well visualized. Great Vessels The aortic root is normal size. Pericardium/Pleura There is no pericardial effusion. There is no pleural effusion. Summary Statements The left ventricular size, thickness and function are normal Ejection Fraction = 60%. There is moderate mitral valve thickening. There is trace mitral regurgitation. There is trace tricuspid regurgitation. There was insufficient TR detected to calculate RV systolic pressure. Moderate valvular aortic stenosis. Aortic mean pressure gradient= 18.5 Moderate aortic regurgitation. MD Hudson Buitrago 08/04/2018, 11:28 AM Ordering Physician: HAILE CHICAS Referring Physician: JOHN GAXIOLA Performed By: Velia Morris
[2018-08-04] MEDS: SODIUM CHLORIDE 1,000 ML IV SCH ×2 (12:30→19:54)
--- NOTE | 2018-08-04 12:53 | PN ---
Teaching Attending Note Name of Resident: Rhona Vaughn ATTENDING PHYSICIAN STATEMENT I saw and evaluated the patient. I reviewed the resident's note and discussed the case with the resident. I agree with the resident's findings and plan as documented. SUBJECTIVE:seen at 10:30am No CP, but had complained of CP to residents ( started after her syncope episode ). feels tired. has no HARPER , no diplopia or blurry vision. has no HARPER . No weakness but fatigue. sleepy. no abd pain. no numbness or tingling she is not sure of her meds, but admitted to resident that she sis not take steroids for 3 weeks OBJECTIVE: NAD , cooperative, dry MM. decreased skin turgor CV: RRR, 3/6 Sm at RUSB and LUSB, with radiation to the carotids, and back. Lungs: CTAB Abd: sfot, NT, Nd , NL BS Ext : no edema or erythema. dry skin. decreased skin turgor Neuro: round pupils, reactive to light R < L. R ptosis . R eye deviated out and down. abnormal EOMI on R ( incomplete deviation medially, upwards, and downwards) . tongue at mid line, sensatio in face is l. uvula at mid line. slight asymmetry of nasolabial folds. nl shoulder shrug Strength 4/5 shoulder abduction , 5/5 biceps and triceps, bilaterally 4/5 hip flexion , 5/5 knee flexion and extension and ankle dosriflexion / plantar flexion bilaterally . reflexes unable to ilicit knee jerk. 1+ biceps b/l . ASSESSMENT AND PLAN: 68 y/o lady with h/o breast carcinoma s/p lumpectomy/Rtx , recent diagnosis of thalamic abscess, and R CNIII palsy, HTN, HLP, CAD, CVA, SKD, migraines, MCA aneurysm, who presented with syncope. 1- Syncope: most likely etiology is orthostatic hypotension ( happened while standing, elevated BUN ?Cr , improvement in BUN with IVF, decreased skin turgor , dry MM, on diuretics). per neuro note on 07/30 steroids were supposed to stop on 08/01, pt is unsure of details. doubt secondary adrenal insufficiency. unlikely stroke or ACS. Nt sure is asymmetry in nasolabial folds is new or old . doubt that her is responsible for this episode as it was not on exertion - hold chlorthalidone - give IVF - monitor on tele - EKG with L axis ( new) and inverted TW in inferior leads ( old ) . repeat EKG this am , with no change from yesterday. - CT scan of brain reviewed. obtain MRI. - check Am cortisol - repeat trop - echo 2- Recent diagnosis of R thalamic abscess. off vanco since 07/28 due to Tinnitus. No previous cx - dc vanco - cont zosyn and flagyl - Id consult - Repeat MRI 3-CP: atypical . lasted for hours , reproducible. EKG as above, trop nl. will repeat. follow echo 4- H/o HTN: - cont nifedipine, BB, lisinopril and hold chlorthalidone 5- DM: debora confirm if she is on insulin at home - cont SSI for now. 5- Microcytosis: start with iron studies. 7- H/o CAD, CVA: cont asa, plavix, statin, BB, ACEI, and CCB 8- Recent CN III palsy. 9- H/o Migraines. inactive now DVT Px; add lovenox PT eval.
[2018-08-04] MEDS ORDERED: VANCOMYCIN HCL 1,250 MG in DEXTROSE 5%-WATER - 250 ML IVPB ONE (14:00)
--- NOTE | 2018-08-04 15:09 | CON.ID ---
Consult - Alcohol/Substance Use Hx Alcohol Use: No - Smoking History Smoking history: Never smoked Have you smoked in the past 12 months: No Aproximately how many cigarettes per day: 2,010 Home Medications - Allergies Allergies/Adverse Reactions: Allergies Allergy/AdvReac Type Severity Reaction Status Date / Time No Known Drug Allergies Allergy Verified 08/03/18 22:48 - Home Medications Home Medications: Ambulatory Orders RX: Alendronate Sodium [Fosamax] 70 mg PO WEEKLY 01/02/15 RX: Aspirin [ASA -] 81 mg PO DAILY 01/02/15 RX: Atorvastatin Ca [Lipitor] 80 mg PO HS 01/02/15 RX: Calcium Carbonate/Vitamin D3 [Calcium 600-Vit D3 800 Caplet] 1 each PO DAILY 01/02/15 RX: Chlorthalidone 25 mg PO DAILY 01/02/15 RX: Famotidine 40 mg PO DAILY 01/02/15 RX: Insulin Glargine,Hum.rec.anlog [Lantus (10mL VIAL) -] 50 units SQ HS RX: Lisinopril [Prinivil -] 40 mg PO DAILY 01/02/15 RX: Metoprolol Tartrate 50 mg PO BID 01/02/15 RX: Nifedipine [Nifedipine ER] 60 mg PO BID 01/02/15 RX: Clopidogrel Bisulfate [Clopidogrel] 75 mg PO DAILY 07/03/18 RX: Dulaglutide [Trulicity] 0.75 mg SQ WEEKLY 07/03/18 RX: Fluticasone Prop 0.05% Nasal [Flonase -] 1 - 2 spray NS DAILY 07/03/18 Dexamethasone [Decadron] 4 mg PO Q12H 14 Days #28 tablet 07/17/18 RX: Divalproex *ER* [Depakote *ER* -] 500 mg PO HS 30 Days #30 tablet.sa RX: Metronidazole 500 mg IV Q8H 42 Days tablet 07/17/18 RX: Miscellaneous Medical Supply [Outpatient Order] 1 each ASDIR #1 misc 08/30 RX: Miscellaneous Medical Supply [Outpatient Order] 1 each ASDIR #1 misc 08/30 RX: Piperacillin/Tazob 2.25 gm [Zosyn -] 2.25 gm IVPB Q8H vial 07/17/18 RX: Sumatriptan Succinate [Imitrex -] 100 mg PO DAILY PRN 15 Days #30 tablet 08/30 RX: Vancomycin HCl 1,250 mg IVPB Q24H vial 07/17/18 Physical Exam Vital Signs: Vital Signs Temperature 98 F 08/04/18 12:07 Pulse Rate 75 08/04/18 12:07 Respiratory Rate 18 08/04/18 12:07 Blood Pressure 114/50 L 08/04/18 12:07 O2 Sat by Pulse Oximetry (%) 97 08/04/18 12:07 Labs: CBC, BMP 08/04/18 05:20 08/04/18 05:20
--- NOTE | 2018-08-04 16:41 | PDOC ---
Documentation entered by Aidan Aranda SCRIBE, acting as scribe for Rose Rebolledo MD. Rose Rebolledo MD: This documentation has been prepared by the Manoj brown Matthew, SCRIBE, under my direction and personally reviewed by me in its entirety. I confirm that the documentation accurately reflects all work, treatment, procedures, and medical decision making performed by me. Attending Attestation - Resident Resident Name: SantaRajan - ED Attending Attestation I have performed the following: I have examined & evaluated the patient, The case was reviewed & discussed with the resident, I agree w/resident's findings & plan, Exceptions are as noted - HPI HPI: 08/04/18 00:13 Patient is a 68 year old female with a significant past medical history of HTN, HLD, CKD, Aortic Stenosis, Breast Ca (s/p RT, Endocrine therapy and lumpectomy in 2011), CAD, who presents to the ED with complaints of syncopal episode that occurred earlier this afternoon. As pe patient's son patient went to last month to have a tooth removed and returned to the [place] He reports patient began to experience stroke like symptoms, such as facial droop, prompting patient to see her PCP who advised she go to the ED for further evaluation. Patient had full neuro work up by Dr. Engle, had cerebral MRI done which showed possible cerebral abscess and was placed on antibiotics. As per son, patient was feeling better yesterday, but states she woke up this morning feel weak, and decreased PO intake. He reports patient was being walked to the bathroom when she experienced a syncopal episode, prompting him to call EMS to have her brought to the ED for further evaluation. Denies chest pain, Sob. Denies nausea, vomiting. Denies fever, chills. Denies contact with sick individuals, out of state travelling. Denies constipation, diarrhea. Denies dysuria, hematuria. Denies any other symptoms. Allergies: None Social history: Former smoker. No alcohol. No illicit drugs. Surgical history: Lumpectomy, Carotid Endarterectomy (2017) PMD: Not on staff. Neuro: Dr. Engle - Physicial Exam PE: 08/04/18 00:15 GENERAL: +Conversant. Well developed, well nourished. Awake and alert. In no acute distress. HEENT: +Right eyelid droop s/p 1 month. +4mm pupils . +reactive to light. Normocephalic, atraumatic. PERRLA, EOMI. No conjunctival pallor. Sclerae are non -icteric. Moist mucous membranes. Oropharynx is clear. NECK: Supple. Full ROM. No JVD. Carotid pulses 2+ and symmetric, without bruits. No thyromegaly. No lymphadenopathy. CARDIOVASCULAR: Regular rate and rhythm. No murmurs, rubs, or gallops. Distal pulses are 2+ and symmetric. PULMONARY: No evidence of respiratory distress. Lungs clear to auscultation bilaterally. No wheezing, rales or rhonchi. ABDOMINAL: Soft. Non-tender. Non-distended. No rebound or guarding. No organomegaly. Normoactive bowel sounds. MUSCULOSKELETAL Normal range of motion at all joints. No bony deformities or tenderness. No CVA tenderness. EXTREMITIES: +Moving all extremities. No cyanosis. No clubbing. No edema. No calf tenderness. SKIN: Warm and dry. Normal capillary refill. No rashes. No jaundice. NEUROLOGICAL: +Gait not tested. +Following all commands. Alert, awake, appropriate. Cranial nerves 2-12 intact. No deficits to light touch and temperature in face, upper extremities and lower extremities. No motor deficits in the in face, upper extremities and lower extremities. Normoreflexic in the upper and lower extremities. Normal speech. Toes are downgoing bilaterally. PSYCHIATRIC: Cooperative. Good eye contact. Appropriate mood and affect. - Medical Decision Making 08/04/18 01:03 this 68 yo female has a complex medical history including IDDM,CAD, stenosis, hypertension, hyperlipidemia, breast cancer status post radiation therapy and chemotherapy and lumpectomy in 2012. First diagnosed with a brain abscess recently and has been receiving Zosyn and Flagyl through her PICC line. 08/04/18 01:10 today her family has noted she is more lethargic than she had been,and she had a syncopal episode walking to the bathroom and vomited the pt does have a complaint of headache -she has been taking imitrex for her headaches but did not take any today 08/04/18 01:37 CT SCAN HEAD W/O Scan of the head without contrast was done. Radiologist compared this to the MRI dated July 14 of this month. The ventricular system is midline and intact and nondilated There is mild cortical atrophy and minimal small vessel ischemic changes Small focus of low attenuation in the right thalamus and location of the previously noted mass may represent an evolving subacute to old infarct. No definite mass identified, although the evaluation is limited without contrast. There is no bleed extra-axial fluid collection or mass effect. There is no skull fracture Visualized paranasal sinuses and mastoid air cells are clear, although the left maxillary retention cyst Impression suspected evolving infarct in the right thalamus, without definite mass or abscess, although evaluation is limited without contrast 08/04/18 02:04 I spoke with the radiologist Dr Zach Uribe and we sent him the ct head from July 30 for comparison and there is no acute findings - NO acute bleed and he felt that there was no evidence for an abscess. Instead he felt the area was improving ,involuting . pt had syncopal episode and will be admitted to telemetry for serial cardiac enzymes 08/04/18 02:06
[2018-08-04] MEDS ORDERED: INSULIN REGULAR HUMAN 100 UNITS/ML *VIAL ONE (16:43)
--- NOTE | 2018-08-04 17:28 | PN ---
Physical Exam: SUBJECTIVE: Patient seen and examined this AM. She was sleepy during my interview, thus she responded with few words. Denies any headache, Diplopia, blurry vision. As per family, Neuro instructed patient to start tappering down decadron from 07/31-08/02, thus she is no longer on it. Denies any numbness, tingling, weakness. OBJECTIVE: Vital Signs Period Temp Pulse Resp BP Sys/Alvares Pulse Ox Last 24 Hr 98 F-98.4 F 60-75 16-19 110-115/50-84 97-100 GENERAL: A&Ox3, NAD HEAD: NCAT EYES: Pupils reactive but sluggish on Right, R-sided ptosis, Right eye down and out ENT: moist mucous membranes NECK: Supple LUNGS: CTA B/L, no wheezes, no crackles HEART: Regular rate and rhythm, S1, S2, 3/6 murmur at LUSB with radiation to the carotids ABDOMEN: Soft, nontender, nondistended, + bowel sounds, no guarding EXTREMITIES: no edema NEUROLOGICAL: R CN III Palsy, Gross sensation intact throughout. 4/5 muscle strength throughout. SKIN: Warm, dry Laboratory Last Values WBC 7.0 K/mm3 (4.0-10.0) 08/04/18 05:20 RBC 4.18 M/mm3 (3.60-5.2) 08/04/18 05:20 Hgb 10.7 GM/dL (10.7-15.3) 08/04/18 05:20 Hct 32.5 % (32.4-45.2) 08/04/18 05:20 MCV 77.7 fl (80-96) L 08/04/18 05:20 MCH 25.7 pg (25.7-33.7) 08/04/18 05:20 MCHC 33.0 g/dl (32.0-36.0) 08/04/18 05:20 RDW 19.4 % (11.6-15.6) H 08/04/18 05:20 Plt Count 157 K/MM3 (134-434) 08/04/18 05:20 MPV 9.2 fl (7.5-11.1) 08/04/18 05:20 Absolute Neuts (auto) 4.6 K/mm3 (1.5-8.0) 08/04/18 05:20 Neutrophils % 65.8 % (42.8-82.8) 08/04/18 05:20 Lymphocytes % 25.1 % (8-40) D 08/04/18 05:20 Monocytes % 6.8 % (3.8-10.2) 08/04/18 05:20 Eosinophils % 1.4 % (0-4.5) 08/04/18 05:20 Basophils % 0.9 % (0-2.0) 08/04/18 05:20 Nucleated RBC % 0 % (0-0) 08/04/18 05:20 PT with INR 12.00 SEC (9.7-13.0) 08/04/18 00:11 INR 1.02 (0.83-1.09) 08/04/18 00:11 Sodium 138 mmol/L (136-145) 08/04/18 05:20 Potassium 4.3 mmol/L (3.5-5.1) 08/04/18 05:20 Chloride 104 mmol/L (98-107) 08/04/18 05:20 Carbon Dioxide 27 mmol/L (21-32) 08/04/18 05:20 Anion Gap 7 MMOL/L (8-16) L 08/04/18 05:20 BUN 28 mg/dL (7-18) H 08/04/18 05:20 Creatinine 1.1 mg/dL (0.55-1.3) 08/04/18 05:20 Creat Clearance w eGFR 49.39 (>60) 08/04/18 05:20 POC Glucometer 217 UNITS (80-120) 08/04/18 16:39 Random Glucose 106 mg/dL (74-106) 08/04/18 05:20 Lactic Acid 0.8 mmol/L (0.4-2.0) 08/04/18 00:11 Calcium 9.1 mg/dL (8.5-10.1) 08/04/18 05:20 Phosphorus 4.1 mg/dL (2.5-4.9) 08/04/18 05:20 Magnesium 2.1 mg/dL (1.8-2.4) 08/04/18 05:20 Total Bilirubin 0.2 mg/dL (0.2-1) 08/04/18 00:11 AST 23 U/L (15-37) 08/04/18 00:11 ALT 34 U/L (13-61) 08/04/18 00:11 Alkaline Phosphatase 71 U/L (45-117) 08/04/18 00:11 Creatine Kinase 34 U/L (26-192) 08/04/18 00:11 Troponin I < 0.02 ng/ml (0.00-0.05) 08/04/18 12:44 Total Protein 5.6 g/dl (6.4-8.2) L 08/04/18 00:11 Albumin 2.7 g/dl (3.4-5.0) L 08/04/18 00:11 Urine Color Yellow 08/04/18 02:05 Urine Appearance Clear 08/04/18 02:05 Urine pH 6.5 (5.0-8.0) 08/04/18 02:05 Ur Specific [place] 1.011 (1.010-1.035) 08/04/18 02:05 Urine Protein Negative (NEGATIVE) 08/04/18 02:05 Urine Glucose (UA) Negative (NEGATIVE) 08/04/18 02:05 Urine Ketones Negative (NEGATIVE) 08/04/18 02:05 Urine Blood Negative (NEGATIVE) 08/04/18 02:05 Urine Nitrite Negative (NEGATIVE) 08/04/18 02:05 Urine Bilirubin Negative (NEGATIVE) 08/04/18 02:05 Urine Urobilinogen 0.2 mg/dL (0.2-1.0) 08/04/18 02:05 Ur Leukocyte Esterase Trace (NEGATIVE) 08/04/18 02:05 Urine WBC (Auto) 2 /hpf (0-5) 08/04/18 02:05 Urine RBC (Auto) 0 /hpf (0-4) 08/04/18 02:05 Urine Casts (Auto) 2 /lpf (0-8) 08/04/18 02:05 U Epithel Cells (Auto) 1.2 /HPF (0-5/HPF) 08/04/18 02:05 Urine Bacteria (Auto) 0.3 /hpf (NEGATIVE) 08/04/18 02:05 Influenza A (Rapid) Negative 08/04/18 00:12 Influenza B (Rapid) Negative 08/04/18 00:12 Active Medications Aspirin (Asa -) 81 mg PO DAILY [facility] Last Admin: 08/04/18 10:23 Dose: 81 mg Atorvastatin Calcium (Lipitor -) 80 mg PO HS [facility] Clopidogrel Bisulfate (Plavix -) 75 mg PO DAILY [facility] Last Admin: 08/04/18 10:23 Dose: 75 mg Divalproex Sodium (Depakote *Er* -) 500 mg PO HS [facility] Enoxaparin Sodium (Lovenox -) 40 mg SQ DAILY [facility] Metronidazole (Flagyl 500mg Premixed Ivpb -) 500 mg in 100 mls @ 100 mls/hr IVPB Q8H-IV [facility] Last Admin: 08/04/18 10:22 Dose: 100 mls/hr Sodium Chloride (Normal Saline -) 1,000 mls @ 75 mls/hr IV ASDIR [facility] Last Admin: 08/04/18 12:30 Dose: 75 mls/hr Piperacillin Sod/Tazobactam (Sod 2.25 gm/ Dextrose) 50 mls @ 100 mls/hr IVPB Q8H-IV [facility]; Protocol Insulin Aspart (Novolog Vial Sliding Scale -) 1 vial SQ ACHS [facility]; Protocol Last Admin: 08/04/18 16:42 Dose: 4 units Lisinopril (Prinivil) 40 mg PO DAILY [facility] Last Admin: 08/04/18 10:24 Dose: 40 mg Metoprolol Tartrate (Lopressor -) 50 mg PO BID [facility] Last Admin: 08/04/18 10:23 Dose: 50 mg Nifedipine (Procardia Xl -) 60 mg PO BID [facility] Last Admin: 08/04/18 10:24 Dose: 60 mg Ranitidine HCl (Zantac -) 300 mg PO DAILY [facility] Last Admin: 08/04/18 10:24 Dose: 300 mg IMAGING: -EKG: Sinus Bradycardia, VR 59, QTc 405 -ECHO: LV EF 60%, Trace MR and TR, Moderate AR -CXR: No evidence of vascular congestive changes, pneumothorax, large pleural effusion, or pulmonary infiltrates. Limited evaluation of the left lung - retrocardiac region. -Head CT: No evidence of acute intracranial hemorrhage, midline shift, mass effect, or skull fracture. No CT evidence of acute territorial ischemic changes. Decreased attenuation of the right thalamic lesion. 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 Stout) Consulted -Continue Metronidazole 500mg Q8H-IV, Piperacillin Sod/Tazobactam 2.25g Q8H -Repeat MRI Pending #HTN -Continue Lisinopril 40 mg PO daily, Metoprolol Tartrate 50mg PO BID, Nifedipine 60mg PO BID -Hold Diuresis #Migraines -Divalproex 500 mg PO HS -Hold Sumatriptan #DM -ISS BGMs ACHS #CAD, CVA -ASA, Clopidogrel, Atorvastatin 80mg PO HS #FEN -NS @ 75 -Monitor Lytes -Diabetic diet #PPx -DVT: Enoxaparin SQ Visit type - Emergency Visit Emergency Visit: Yes ED Registration Date: 08/04/18 Care time: The patient presented to the Emergency Department on the above date and was hospitalized for further evaluation of their emergent condition. - New Patient This patient is new to me today: Yes Date on this admission: 08/04/18 - Critical Care Critical Care patient: No - Discharge Referral Referred to [facility] Med [facility] No
[2018-08-04] MEDS ORDERED: ATORVASTATIN CA 80 MG TABLET (FP) PO SCH (22:00)
[2018-08-04] MEDS ORDERED: DIVALPROEX NA *ER* EXTEND REL 500 MG TABLET.SA (FP) PO SCH (22:00)
[2018-08-05] MEDS ORDERED: DEXTROSE 5%-WATER - 50 ML IVPB ONE ×2 (02:17→09:00)
[2018-08-05] MEDS ORDERED: PIPERACILLIN/TAZOBACTAM 2.25 GM VIAL IVPB ONE ×2 (02:17→08:59)
[2018-08-05] MEDS: PIPERACILLIN/TAZOB 2.25 GM 2.25 GM in DEXTROSE 5%-WATER - 50 ML IVPB SCH ×2 (02:19→11:34)
[2018-08-05 06:02] LABS: BASO % 1.4 % (0-2.0); EOS % 2.4 % (0-4.5); HEMATOCRIT 28.9 % (32.4-45.2); HEMOGLOBIN 9.4 GM/dL (10.7-15.3); LYMPH % 32.2 % (8-40); MCH 25.5 pg (25.7-33.7); MCHC 32.7 g/dl (32.0-36.0); MEAN CELL VOLUME 78.1 fl (80-96); MEAN PLT VOLUME 9.1 fl (7.5-11.1); MONO % 8.6 % (3.8-10.2); NEUT % 55.4 % (42.8-82.8); PLATELET COUNT 143 K/MM3 (134-434); RDW 19.3 % (11.6-15.6); WHITE BLOOD COUNT 5.2 K/mm3 (4.0-10.0)
[2018-08-05] MEDS: INSULIN SLIDING SCALE (NOVOLOG) 1 VIAL SQ SCH (06:05)
[2018-08-05 06:53] LABS: ALBUMIN 2.6 g/dl (3.4-5.0); ALK PHOS 89 U/L (45-117); ANION GAP 5 MMOL/L (8-16); BILIRUBIN,TOTAL 0.3 mg/dL (0.2-1); BLOOD UREA NITROGEN 18 mg/dL (7-18); CALCIUM 8.2 mg/dL (8.5-10.1); CHLORIDE 108 mmol/L (98-107); CO2 27 mmol/L (21-32); GLUCOSE,RANDOM 117 mg/dL (74-106); MAGNESIUM 2.1 mg/dL (1.8-2.4); POTASSIUM 4.1 mmol/L (3.5-5.1); SGOT/AST 9 U/L (15-37); SGPT/ALT 25 U/L (13-61); SODIUM 140 mmol/L (136-145); TOT PROT 5.2 g/dl (6.4-8.2)
[2018-08-05 07:11] VITALS: BMI 26.6
[2018-08-05] MEDS ORDERED: ENOXAPARIN NA (PORCINE) 40 MG/0.4 ML DISP.SYRIN SQ SCH (10:00)
--- NOTE | 2018-08-05 10:27 | CONSULT ---
Consult - text type - Consultation Consultation Note: NEUROLOGY CONSULTATION is greatly appreciated: Events reviewed and discussed with FRANCIS Meza. Son and at bedside aiding in translation. This 68 yo RH woman with a PMH of IDDM, CKD, HTN, HLD, Aortic Stenosis, Breast Ca s/p lumpectomy, migraine headaches. 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 Work-up revealed a probable Thalamic Abscess s/p PICC on abx at home including zosyn and metronidazole. Returns due to family reports 2 days of worsening R hemicranial pain w/ nausea, vomiting and lightheadedness, with her children having to lower her to the floor. She initially went to [facility] by EMS and family decided to take her home because she felt somewhat better with anti-emetic and IVF from EMS. She returned home and experienced same imbalance and vomited a second time within the day and then returned to [facility] for further workup. Family state they provide her home medications and it is unclear whether she has been taking depakote 500 mg ER nightly for migraines. Still reporting headaches 2-3 times per week, however today feels well without any complaints. MRI of brain C+/C- (reviewed): resolution of vasogenic edema around R thalamic abscess with decrease in size. Resolution of mesencephalic T2 signal increase. Urine WBC = 2, NA 133 BS= 160 VIPIN: BP 117/53 supine, 84/51 sitting, 87/50 standing. Neck supple. No evidence of head trauma. NEURO: Awake, alert. Ox3. Able to open right eye, now with ptosis. Can adduct OD past the midline before fatigue. No drift. Normal strength. Normal reflexes except AJ's. Toes downgoing. Coord: No FTN dystaxia Sensory: Decreased vib toes Gait: sl wide-based. IMP: 1. Non-focal exam 2. Orthostatic Hypotension - likely secondary to volume loss with vomiting 3. Resolving Acute Migraine with possible vertiginous symptoms 2. 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 Improving diabetic CN III on the right. Suggest: Continue IV Antibiotics and IVF Orthostatic BP's and follow lytes Would consider lowering of BP meds Increase Depakote to 750 mg qhs x 1 week, then 1000 mg po qhs for migraine prophylaxis ID consult appreciated PT eval and gait training with walker administrative services coordinator for further assistance in the home ([facility]) Thank you very much, Lizandro Engle MD
--- NOTE | 2018-08-05 10:45 | PN ---
Progress Note, Physician History of Present Illness: patient stable doing well no complaints - Current Medication List Current Medications: Active Medications Aspirin (Asa -) 81 mg PO DAILY [facility] Last Admin: 08/04/18 10:23 Dose: 81 mg Atorvastatin Calcium (Lipitor -) 80 mg PO HS [facility] Last Admin: 08/04/18 21:56 Dose: 80 mg Clopidogrel Bisulfate (Plavix -) 75 mg PO DAILY [facility] Last Admin: 08/04/18 10:23 Dose: 75 mg Divalproex Sodium (Depakote *Er* -) 500 mg PO HS [facility] Last Admin: 08/04/18 21:56 Dose: 500 mg Enoxaparin Sodium (Lovenox -) 40 mg SQ DAILY [facility] Metronidazole (Flagyl 500mg Premixed Ivpb -) 500 mg in 100 mls @ 100 mls/hr IVPB Q8H-IV [facility] Last Admin: 08/05/18 02:47 Dose: 100 mls/hr Sodium Chloride (Normal Saline -) 1,000 mls @ 75 mls/hr IV ASDIR [facility] Last Admin: 08/04/18 19:54 Dose: 75 mls/hr Piperacillin Sod/Tazobactam (Sod 2.25 gm/ Dextrose) 50 mls @ 100 mls/hr IVPB Q8H-IV [facility]; Protocol Last Admin: 08/05/18 02:19 Dose: 100 mls/hr Insulin Aspart (Novolog Vial Sliding Scale -) 1 vial SQ ACHS [facility]; Protocol Last Admin: 08/05/18 06:05 Dose: Not Given Lisinopril (Prinivil) 40 mg PO DAILY [facility] Last Admin: 08/04/18 10:24 Dose: 40 mg Metoprolol Tartrate (Lopressor -) 50 mg PO BID [facility] Last Admin: 08/04/18 21:56 Dose: 50 mg Nifedipine (Procardia Xl -) 60 mg PO BID [facility] Last Admin: 08/04/18 21:56 Dose: 60 mg Ranitidine HCl (Zantac -) 300 mg PO DAILY [facility] Last Admin: 08/04/18 10:24 Dose: 300 mg - Objective Vital Signs: Vital Signs Temperature 98.6 F 08/05/18 04:30 Pulse Rate 66 08/05/18 04:32 Respiratory Rate 18 08/05/18 04:30 Blood Pressure 117/53 L 08/05/18 04:32 O2 Sat by Pulse Oximetry (%) 96 08/04/18 19:30 Constitutional: Yes: No Distress, Calm Cardiovascular: Yes: Regular Rate and Rhythm Respiratory: Yes: Regular, CTA Bilaterally Gastrointestinal: Yes: Normal Bowel Sounds, Soft Musculoskeletal: Yes: WNL Extremities: Yes: WNL Neurological: Yes: Alert, Oriented Psychiatric: Yes: Alert, Oriented Labs: CBC, BMP 08/05/18 05:30 08/05/18 05:30 INR, PTT INR 1.02 (0.83-1.09) 08/04/18 00:11 - ....Imaging Cat Scan: Report Reviewed, Image Reviewed Assessment/Plan 68 y/o F w/ PMHx IDDM, HTN, HLD, CKD, , breast Ca s/p lumpectomy and RT, recently admitted CNIII palsy 2/2 suspected thalamic abscess per MRI evaluation , started on 6 week course of Vancomycin/Zosyn/Flagyl via PICC, p/w syncopal episode syncope -DM -HTN -HLD -CKD - plan conitnue current abx and complete the course no vanco rest as per the team
[2018-08-05] MEDS: RANITIDINE HCL 150 MG TABLET (FP) PO SCH (11:29)
[2018-08-05] MEDS: CLOPIDOGREL BISULFATE 75 MG TABLET (FP) PO SCH (11:29)
[2018-08-05] MEDS: ASPIRIN 81 MG CHEWABLE TABLETS PO SCH (11:30)
[2018-08-05] MEDS: NIFEdipine E.R 60 MG TABLET (UD) PO SCH (11:31)
[2018-08-05] MEDS: METOPROLOL TARTRATE 50 MG TABLET (FP) PO SCH (11:32)
[2018-08-05] MEDS: LISINOPRIL 20 MG TABLET (FP) PO SCH (11:33)
[2018-08-05] MEDS ORDERED: ARTIFICIAL TEARS (POLYVINYL ALCOHOL) OPTH DROPS OU PRN (12:19)
--- NOTE | 2018-08-05 13:15 | PN ---
Teaching Attending Note Name of Resident: Rhona Vaughn ATTENDING PHYSICIAN STATEMENT I saw and evaluated the patient. I reviewed the resident's note and discussed the case with the resident. I agree with the resident's findings and plan as documented. SUBJECTIVE: Patient has no complaints. OBJECTIVE: Vital Signs Period Temp Pulse Resp BP Sys/Alvares Pulse Ox Last 24 Hr 98 F-98.6 F 66-77 18-18 84-117/48-65 96-98 HEART: S1S2, RRR LUNGS: Clear ABDOMEN: Soft, non-tender, non-distended, normal BS EXTREMITIES: No edema Laboratory Results - last 24 hr 08/04/18 08/04/18 08/04/18 05:20 11:14 12:44 WBC RBC Hgb Hct MCV MCH MCHC RDW Plt Count MPV Absolute Neuts (auto) Neutrophils % Lymphocytes % Monocytes % Eosinophils % Basophils % Nucleated RBC % Sodium Potassium Chloride Carbon Dioxide Anion Gap BUN Creatinine Creat Clearance w eGFR POC Glucometer 135 Random Glucose Hemoglobin A1c % 9.6 H Calcium Phosphorus Magnesium Ferritin Total Bilirubin AST ALT Alkaline Phosphatase Troponin I < 0.02 Total Protein Albumin 08/04/18 08/04/18 08/05/18 16:39 22:03 05:25 WBC RBC Hgb Hct MCV MCH MCHC RDW Plt Count MPV Absolute Neuts (auto) Neutrophils % Lymphocytes % Monocytes % Eosinophils % Basophils % Nucleated RBC % Sodium Potassium Chloride Carbon Dioxide Anion Gap BUN Creatinine Creat Clearance w eGFR POC Glucometer 217 188 109 Random Glucose Hemoglobin A1c % Calcium Phosphorus Magnesium Ferritin Total Bilirubin AST ALT Alkaline Phosphatase Troponin I Total Protein Albumin 08/05/18 08/05/18 08/05/18 05:30 05:30 12:25 WBC 5.2 RBC 3.70 Hgb 9.4 L Hct 28.9 L MCV 78.1 L MCH 25.5 L MCHC 32.7 RDW 19.3 H Plt Count 143 MPV 9.1 Absolute Neuts (auto) 2.9 Neutrophils % 55.4 Lymphocytes % 32.2 D Monocytes % 8.6 Eosinophils % 2.4 Basophils % 1.4 Nucleated RBC % 0 Sodium 140 Potassium 4.1 Chloride 108 H Carbon Dioxide 27 Anion Gap 5 L BUN 18 Creatinine 1.0 Creat Clearance w eGFR 55.14 POC Glucometer 170 Random Glucose 117 H Hemoglobin A1c % Calcium 8.2 L Phosphorus 3.0 Magnesium 2.1 Ferritin 12.2 Total Bilirubin 0.3 AST 9 L ALT 25 Alkaline Phosphatase 89 Troponin I Total Protein 5.2 L Albumin 2.6 L Current Medications Generic Name Dose Route Start Last Admin Trade Name Freq PRN Reason Stop Dose Admin Artificial Tears 1 drop 08/05/18 12:19 Artificial Tears OU TID PRN DRY EYES Aspirin 81 mg 08/04/18 10:00 08/05/18 11:30 Asa - PO 81 mg DAILY [facility] Administration Atorvastatin Calcium 80 mg 08/04/18 22:00 08/04/18 21:56 Lipitor - PO 80 mg HS [facility] Administration Clopidogrel Bisulfate 75 mg 08/04/18 10:00 08/05/18 11:29 Plavix - PO 75 mg DAILY [facility] Administration Divalproex Sodium 500 mg 08/04/18 22:00 08/04/18 21:56 Depakote *Er* - PO 500 mg HS [facility] Administration Enoxaparin Sodium 40 mg 08/05/18 10:00 08/05/18 11:34 Lovenox - SQ 40 mg DAILY [facility] Administration Metronidazole 500 mg in 100 mls @ 100 mls/hr 08/04/18 04:30 08/05/18 11:38 Flagyl 500mg Premixed Ivpb - IVPB 100 mls/hr Q8H-IV [facility] Administration Sodium Chloride 1,000 mls @ 75 mls/hr 08/04/18 12:00 08/04/18 19:54 Normal Saline - IV 75 mls/hr ASDIR [facility] Administration Piperacillin Sod/Tazobactam 50 mls @ 100 mls/hr 08/04/18 18:00 08/05/18 11:34 Sod 2.25 gm/ Dextrose IVPB 100 mls/hr Q8H-IV [facility] Administration Protocol Insulin Aspart 1 vial 08/04/18 07:00 08/05/18 06:05 Novolog Vial Sliding Scale - SQ Not Given ACHS [facility] Protocol Lisinopril 40 mg 08/04/18 10:00 08/05/18 11:33 Prinivil PO Not Given DAILY [facility] Metoprolol Tartrate 50 mg 08/04/18 10:00 08/05/18 11:32 Lopressor - PO 50 mg BID [facility] Administration Nifedipine 60 mg 08/04/18 10:00 08/05/18 11:31 Procardia Xl - PO 60 mg BID [facility] Administration Ranitidine HCl 300 mg 08/04/18 10:00 08/05/18 11:29 Zantac - PO 300 mg DAILY [facility] Administration ASSESSMENT AND PLAN: This is a 68 year old woman with a history of HTN, hyperlipidemia, CAD, CKD, CVA , migraine headaches, breast cancer, lumpectomy, thalamic abscess, MCA aneurysm , right oculomotor nerve palsy who presented to the ED after passing out. 1. Syncope - Likely secondary to orthostatic hypotension from dehydration - Chlorthalidone held - BUN improved with IV fluid 2. Right thalamic abscess - Continue Zosyn, Flagyl - Vancomycin discontinued secondary to tinnitus - MRI of brain shows decrease in size of right thalamic lesion with resolution of surrounding edema 3. Chest pain, atypical - Resolved - Echo shows normal LV, EF 60%, trace MR, trace TR, moderate , moderate AR 4. HTN - Continue Procardia XL, lisinopril, Lopressor 5. Type 2 DM - Continue Novolog sliding scale 6. Anemia, microcytic - Iron studies pending 7. CAD - Continue aspirin, Lopressor, Plavix, Lipitor 8. History of CVA - Continue aspirin, Lipitor 9. Hyperlipidemia - Continue Lipitor 10. Stage 3 CKD - Stable 11. History of migraine headaches 12. Right oculomotor nerve palsy 13. Breast cancer, history of lumpectomy, RT 14. Disposition - Ok for discharge home today with outpatient follow-up
--- NOTE | 2018-08-05 13:29 | DS ---
Physical Exam: SUBJECTIVE: Patient seen and examined this AM. No longer complains of dizziness , no further episodes of dizziness. Denies headache, diplopia, blurry vision. OBJECTIVE: Vital Signs Period Temp Pulse Resp BP Sys/Alvares Pulse Ox Last 24 Hr 98 F-98.6 F 66-77 18-18 84-117/48-65 96-98 PHYSICAL EXAM GENERAL: A&Ox3, NAD HEAD: NCAT EYES: Pupils reactive but sluggish on Right, R-sided ptosis, Right eye down and out ENT: moist mucous membranes NECK: Supple LUNGS: CTA B/L, no wheezes, no crackles HEART: Regular rate and rhythm, S1, S2, 3/6 murmur at LUSB with radiation to the carotids ABDOMEN: Soft, nontender, nondistended, + bowel sounds, no guarding EXTREMITIES: no edema NEUROLOGICAL: R CN III Palsy, Gross sensation intact throughout. 4/5 muscle strength throughout. SKIN: Warm, dry LABS Laboratory Last Values WBC 5.2 K/mm3 (4.0-10.0) 08/05/18 05:30 RBC 3.70 M/mm3 (3.60-5.2) 08/05/18 05:30 Hgb 9.4 GM/dL (10.7-15.3) L 08/05/18 05:30 Hct 28.9 % (32.4-45.2) L 08/05/18 05:30 MCV 78.1 fl (80-96) L 08/05/18 05:30 MCH 25.5 pg (25.7-33.7) L 08/05/18 05:30 MCHC 32.7 g/dl (32.0-36.0) 08/05/18 05:30 RDW 19.3 % (11.6-15.6) H 08/05/18 05:30 Plt Count 143 K/MM3 (134-434) 08/05/18 05:30 MPV 9.1 fl (7.5-11.1) 08/05/18 05:30 Absolute Neuts (auto) 2.9 K/mm3 (1.5-8.0) 08/05/18 05:30 Neutrophils % 55.4 % (42.8-82.8) 08/05/18 05:30 Lymphocytes % 32.2 % (8-40) D 08/05/18 05:30 Monocytes % 8.6 % (3.8-10.2) 08/05/18 05:30 Eosinophils % 2.4 % (0-4.5) 08/05/18 05:30 Basophils % 1.4 % (0-2.0) 08/05/18 05:30 Nucleated RBC % 0 % (0-0) 08/05/18 05:30 PT with INR 12.00 SEC (9.7-13.0) 08/04/18 00:11 INR 1.02 (0.83-1.09) 08/04/18 00:11 Sodium 140 mmol/L (136-145) 08/05/18 05:30 Potassium 4.1 mmol/L (3.5-5.1) 08/05/18 05:30 Chloride 108 mmol/L (98-107) H 08/05/18 05:30 Carbon Dioxide 27 mmol/L (21-32) 08/05/18 05:30 Anion Gap 5 MMOL/L (8-16) L 08/05/18 05:30 BUN 18 mg/dL (7-18) 08/05/18 05:30 Creatinine 1.0 mg/dL (0.55-1.3) 08/05/18 05:30 Creat Clearance w eGFR 55.14 (>60) 08/05/18 05:30 POC Glucometer 170 UNITS (80-120) 08/05/18 12:25 Random Glucose 117 mg/dL (74-106) H 08/05/18 05:30 Hemoglobin A1c % 9.6 % (4.2-6.3) H 08/04/18 05:20 Lactic Acid 0.8 mmol/L (0.4-2.0) 08/04/18 00:11 Calcium 8.2 mg/dL (8.5-10.1) L 08/05/18 05:30 Phosphorus 3.0 mg/dL (2.5-4.9) 08/05/18 05:30 Magnesium 2.1 mg/dL (1.8-2.4) 08/05/18 05:30 Ferritin 12.2 ng/ml (8-388) 08/05/18 05:30 Total Bilirubin 0.3 mg/dL (0.2-1) 08/05/18 05:30 AST 9 U/L (15-37) L 08/05/18 05:30 ALT 25 U/L (13-61) 08/05/18 05:30 Alkaline Phosphatase 89 U/L (45-117) 08/05/18 05:30 Creatine Kinase 34 U/L (26-192) 08/04/18 00:11 Troponin I < 0.02 ng/ml (0.00-0.05) 08/04/18 12:44 Total Protein 5.2 g/dl (6.4-8.2) L 08/05/18 05:30 Albumin 2.6 g/dl (3.4-5.0) L 08/05/18 05:30 Urine Color Yellow 08/04/18 02:05 Urine Appearance Clear 08/04/18 02:05 Urine pH 6.5 (5.0-8.0) 08/04/18 02:05 Ur Specific [place] 1.011 (1.010-1.035) 08/04/18 02:05 Urine Protein Negative (NEGATIVE) 08/04/18 02:05 Urine Glucose (UA) Negative (NEGATIVE) 08/04/18 02:05 Urine Ketones Negative (NEGATIVE) 08/04/18 02:05 Urine Blood Negative (NEGATIVE) 08/04/18 02:05 Urine Nitrite Negative (NEGATIVE) 08/04/18 02:05 Urine Bilirubin Negative (NEGATIVE) 08/04/18 02:05 Urine Urobilinogen 0.2 mg/dL (0.2-1.0) 08/04/18 02:05 Ur Leukocyte Esterase Trace (NEGATIVE) 08/04/18 02:05 Urine WBC (Auto) 2 /hpf (0-5) 08/04/18 02:05 Urine RBC (Auto) 0 /hpf (0-4) 08/04/18 02:05 Urine Casts (Auto) 2 /lpf (0-8) 08/04/18 02:05 U Epithel Cells (Auto) 1.2 /HPF (0-5/HPF) 08/04/18 02:05 Urine Bacteria (Auto) 0.3 /hpf (NEGATIVE) 08/04/18 02:05 Influenza A (Rapid) Negative 08/04/18 00:12 Influenza B (Rapid) Negative 08/04/18 00:12 Microbiology 08/04/18 02:05 Urine - Urine Clean Catch Urine Culture - Final NO GROWTH OBTAINED 08/04/18 00:11 Blood - Peripheral Venous Blood Culture - Preliminary NO GROWTH OBTAINED AFTER 24 HOURS, INCUBATION TO CONTINUE FOR 4 DAYS. 08/04/18 00:05 Blood - Peripheral Venous Blood Culture - Preliminary NO GROWTH OBTAINED AFTER 24 HOURS, INCUBATION TO CONTINUE FOR 4 DAYS. IMAGING: -EKG: Sinus Bradycardia, VR 59, QTc 405 -ECHO: LV EF 60%, Trace MR and TR, Moderate AR -CXR: No evidence of vascular congestive changes, pneumothorax, large pleural effusion, or pulmonary infiltrates. Limited evaluation of the left lung - retrocardiac region. -Head CT: No evidence of acute intracranial hemorrhage, midline shift, mass effect, or skull fracture. No CT evidence of acute territorial ischemic changes. Decreased attenuation of the right thalamic lesion. -Brain MRI with/without contrast: Elliptical in shape lesion is seen in the right thalamus with peripheral rim of increased signal intensity on FLAIR, T2 WI. The lesion measures erendira. 11 mm x 5.5 mm. Linear erendira. 5 mm increased signal intensity is observed in the medial aspect of the left thalamus adjacent to the lesion may represent residual edema, versus gliosis. The lesion decreased in size with resolution of surrounding edema. Peripheral enhancement with nodular component is seen on postcontrast images. There is no evidence of abnormal restricted diffusion in the brain to suggest acute or subacute infarction. 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 Imaging, Micro and labwork noted above. Patient was found to be Orthostatic + for which she was given IV Hydration. Neurology was consulted and her home migraine regimen was adjusted. Her home dose Sumatriptan was discontinued. Infectious disease was consulted and patient continued her prior ABx regimen. Patient continued all of her other home medications. Patients A1c was elevated and she was advised to follow up with her PCP for further management. Patient was discharged home with HHS resumed and strict instruction for hydration, physician follow up and medication compliance. Minutes to complete discharge: 36 Discharge Summary Reason For Visit: SYNCOPY AND COLLAPSE Current Active Problems Syncope and collapse (Acute) Condition: Improved - Instructions Diet, Activity, Other Instructions: You were admitted to the hospital because you had a syncopal episode. You were given hydration and seen by a neurologist. Medication Changes: 1. Your Depakote was increased---Please take 750 mg at bedtime for 1 week (08/05- 08/12) and then 1000mg at bedtime for migraine prophylaxis 2. Stop taking Sumatriptan (Imitrex) Follow up with the following physicians: 1. Primary care physician in one week 2. Neurology--Dr. Engle in one week Your blood pressure was low on admission--Continue to hydrate yourself Continue all your other medications as prescribed. Continue the IV antibiotics and complete the 6 week course. Please return to the ER if you have any signs or symptoms of chest pain, shortness of breath, uncontrollable fever, chills, nausea, vomiting, numbness, tingling, or weakness in any part of your body, changes in vision, slurred speech, changes in speech/gait, or dizziness. Please return to the ER if symptoms persist, worsen, or new symptoms arise. Referrals: Lizandro Engle MD [Staff Physician] - Disposition: VNS/HOME HEALTH CARE - Home Medications Comprehensive Discharge Medication List: Ambulatory Orders Alendronate Sodium [Fosamax] 70 mg PO WEEKLY 01/02/15 Aspirin [ASA -] 81 mg PO DAILY 01/02/15 Atorvastatin Ca [Lipitor] 80 mg PO HS 01/02/15 Chlorthalidone 25 mg PO DAILY 01/02/15 Lisinopril [Prinivil -] 40 mg PO DAILY 01/02/15 Metoprolol Tartrate 50 mg PO BID 01/02/15 Nifedipine [Nifedipine ER] 60 mg PO BID 01/02/15 Clopidogrel Bisulfate [Clopidogrel] 75 mg PO DAILY 07/03/18 Dulaglutide [Trulicity] 0.75 mg SQ WEEKLY 07/03/18 Metronidazole 500 mg IV Q8H 42 Days tablet 07/17/18 Piperacillin/Tazob 2.25 gm [Zosyn -] 2.25 gm IVPB Q8H vial 07/17/18 Sumatriptan Succinate [Imitrex -] 100 mg PO DAILY PRN 15 Days #30 tablet Divalproex *ER* [Depakote *ER* -] 1,000 mg PO HS #60 tablet.sa 08/05/18 Divalproex *ER* [Depakote *ER* -] 750 mg PO HS #11 tablet. 08/05/18 This patient is new to me today: No Emergency Visit: Yes ED Registration Date: 08/04/18 Care time: The patient presented to the Emergency Department on the above date and was hospitalized for further evaluation of their emergent condition. Critical Care patient: No - Discharge Referral Referred to [facility] Med [facility] No
[2018-08-05 18:17] VITALS: BP 142/59; PULSE 65; TEMP 98.2
[2018-08-06 04:14] LABS: SERUM IRON SATURATION 19 % (15-55); TOTAL IRON BINDING CAPACITY 183 ug/dL (250-450); UIBC 148 ug/dL (118-369)
== END 2018-08-05 18:23 | disposition home health service (06) ==
LOC: JER 22:13 → JERBED 08-04 03:37 → INTOOBSV 08-04 03:37 → J4S 08-04 19:18
PROVIDERS: ADMIT Internal Medicine; ATTEND Internal Medicine
PROC: 3E03329 Introduction of Other Anti-infective into Peripheral Vein, Percutaneous Approach (ICD-10-PCS; principal; 2018-08-04)
PROC: 3E0337Z Introduction of Electrolytic and Water Balance Substance into Peripheral Vein, Percutaneous Approach (ICD-10-PCS; 2018-08-04)
PROC: 3E033GC Introduction of Other Therapeutic Substance into Peripheral Vein, Percutaneous Approach (ICD-10-PCS; 2018-08-04)
PROC: 3E013GC Introduction of Other Therapeutic Substance into Subcutaneous Tissue, Percutaneous Approach (ICD-10-PCS; 2018-08-04)
DX: R55 Syncope and collapse (principal); E11.22 Type 2 diabetes mellitus with diabetic chronic kidney disease; I12.9 Hypertensive chronic kidney disease with stage 1 through stage 4 chronic kidney disease, or unspecified chronic kidney disease; N18.3 Chronic kidney disease, stage 3 (moderate); Z79.4 Long term (current) use of insulin; I11.0 Hypertensive heart disease with heart failure; E78.5 Hyperlipidemia, unspecified; I50.9 Heart failure, unspecified; E32.1 Abscess of thymus; I69.398 Other sequelae of cerebral infarction; I35.0 Nonrheumatic aortic (valve) stenosis; I25.10 Atherosclerotic heart disease of native coronary artery without angina pectoris; R07.89 Other chest pain; R71.8 Other abnormality of red blood cells; G43.909 Migraine, unspecified, not intractable, without status migrainosus; I95.1 Orthostatic hypotension; Z79.82 Long term (current) use of aspirin; Z95.9 Presence of cardiac and vascular implant and graft, unspecified; Z92.3 Personal history of irradiation; Z85.3 Personal history of malignant neoplasm of breast
CPT/HCPCS: 36415; 70450-TC; 70553-TC; 71045-TC-FY; 80048; 80053; 81003; 82533; 82550; 82728; 82962; 83036; 83540; 83550; 83605; 83735; 84100; 84484; 85025; 85610; 87040; 87086; 87804; 93005; 93010; 93306-TC; 96361; 96372; 96374; 96375; 97116-GP; 97161-GP; 99285-25; C1887; G0378; J7030

== ENCOUNTER 2018-08-25 10:59 | Inpatient (IN) | payer OTHER ==
--- NOTE | 2018-08-25 11:06 | PDOC ---
History of Present Illness - General Chief Complaint: Syncope/Near Syncope Stated Complaint: Syncope/Near Syncope Time Seen by Provider: 08/25/18 11:06 History Source: Patient Exam Limitations: No Limitations - History of Present Illness Initial Comments: 08/25/18 11:09 68 year old woman with PMH of IDDM, HTN, HLD, CKD, , breast CA (s/p radiation and lumpectomy, finished in 2011), and recent thalamic abscess/CVA (on ASA, plavix, and abx via PICC), who is presenting from PCP office with espidoe of presynceop that occurred when the patient was standing on the scale to be weighed. Her son noted that she began to look weak and she began falling back. Her son caught her and lay her on the ground. She did not lose consciousness. She was hypotensive to the 90s in the office and EMS was called. The patient has 2-3 days of watery dark diarrhea that occur for approx 3 days. The patient also complains of nausea and 6/10 burning mid abdominal pain that started gradually overnight. The patient takes ASA and plavix. The patient feels warm and son reports that she stanley a fever measured at home but does not what temp it was. The patient also complains of slight dysurai but denies chest pain or shortness of breath. Patient on ASA and plavix Past History - Past Medical History Allergies/Adverse Reactions: Allergies Allergy/AdvReac Type Severity Reaction Status Date / Time No Known Drug Allergies Allergy Verified 08/03/18 22:48 Home Medications: Ambulatory Orders Alendronate Sodium [Fosamax] 70 mg PO WEEKLY 01/02/15 Aspirin [ASA -] 81 mg PO DAILY 01/02/15 Atorvastatin Ca [Lipitor] 80 mg PO HS 01/02/15 Chlorthalidone 25 mg PO DAILY 01/02/15 Lisinopril [Prinivil -] 40 mg PO DAILY 01/02/15 Metoprolol Tartrate 50 mg PO BID 01/02/15 Nifedipine [Nifedipine ER] 60 mg PO BID 01/02/15 Clopidogrel Bisulfate [Clopidogrel] 75 mg PO DAILY 07/03/18 Dulaglutide [Trulicity] 0.75 mg SQ WEEKLY 07/03/18 Metronidazole 500 mg IV Q8H 42 Days tablet 07/17/18 Piperacillin/Tazob 2.25 gm [Zosyn -] 2.25 gm IVPB Q8H vial 07/17/18 Sumatriptan Succinate [Imitrex -] 100 mg PO DAILY PRN 15 Days #30 tablet Divalproex *ER* [Depakote *ER* -] 1,000 mg PO HS #60 tablet. 08/05/18 Divalproex *ER* [Depakote *ER* -] 750 mg PO HS #11 tablet. 08/05/18 Cancer: Yes (BREAST CANCER) CVA: Yes (06/2018 right ocular eye weakness/confusion) COPD: No Diabetes: Yes (IDDM) HTN: Yes - Immunization History Td Vaccination: Yes TDAP Vaccination: Yes Immunization Up to Date: (Unknown) - Suicide/Smoking/Psychosocial Hx Smoking History: Never smoked Have you smoked in the past 12 months: No Number of Cigarettes Smoked Daily: 2,010 Hx Alcohol Use: No Drug/Substance Use Hx: No Substance Use Type: None Hx Substance Use Treatment: No Review of Systems - Review of Systems Able to Perform ROS?: Yes Comments:: 08/25/18 13:49 GENERAL/CONSTITUTIONAL: + fever or chills. No weakness. HEAD, EYES, EARS, NOSE AND THROAT: No change in vision. No ear pain or discharge. No sore throat. CARDIOVASCULAR: No chest pain or shortness of breath RESPIRATORY: No cough, wheezing, or hemoptysis. GASTROINTESTINAL: No nausea, vomiting, + diarrhea, No constipation. GENITOURINARY: + slight dysuria, frequency, or change in urination. MUSCULOSKELETAL: No joint or muscle swelling or pain. No neck or back pain. SKIN: No rash NEUROLOGIC: No headache, vertigo, loss of consciousness, or change in strength/ sensation. ENDOCRINE: No increased thirst. No abnormal weight change HEMATOLOGIC/LYMPHATIC: No anemia, easy bleeding, or history of blood clots. ALLERGIC/IMMUNOLOGIC: No hives or skin allergy. Is the patient limited Telugu proficient: No *Physical Exam - Physical Exam Comments: 08/25/18 13:47 GENERAL: Awake, alert, and fully oriented, weak appearing HEAD: No signs of trauma, normocephalic, atraumatic EYES: R pupil sluggishly reactive to light, EOMI, sclera anicteric, conjunctiva clear ENT: oropharynx clear without exudates. Moist mucosa NECK: Normal ROM, supple LUNGS: No distress, speaks full sentences, clear to auscultation bilaterally HEART: tachycardic rate and regular rhythm, normal S1 and S2, + 2/6 harsh holosystolic murmur, No rubs or gallops, peripheral pulses normal and equal bilaterally. ABDOMEN: Soft, + tenderness in bilateral lower quadrants, normoactive bowel sounds. No guarding, no rebound. No masses CHEST: R sided PICC line, clean, dry, intact EXTREMITIES : Normal inspection, Normal range of motion, no edema. No clubbing or cyanosis. NEUROLOGICAL: Cranial nerves II through XII grossly intact. Normal speech, no focal sensorimotor deficits, negative brudzinski's sign SKIN: Warm, Dry, normal turgor, no rashes or lesions noted RECTAL: normal rectal tone, dark brown soft stool ED Treatment Course - LABORATORY CBC & Chemistry Diagram: 08/25/18 11:50 08/25/18 11:50 Medical Decision Making - Medical Decision Making 08/25/18 11:52 68 year old woman with PMH of IDDM, HTN, HLD, CKD, , breast CA (s/p radiation and lumpectomy, finished in 2011), and recent thalamic abscess/CVA (on ASA, plavix, and abx via PICC), who is presenting from PCP office with espidoe of presynceop that occurred when the patient was standing on the scale to be weighed. Her son noted that she began to look weak and she began falling back. Her son caught her and lay her on the ground. She did not lose consciousness. She was hypotensive to the 90s in the office and EMS was called. The patient has 2-3 days of watery dark diarrhea that occur for approx 3 days. The patient also complains of nausea and 6/10 burning mid abdominal pain that started gradually overnight. ED Course: patient with episode of presyncope consider aortic stenosis vs blood loss/GIB vs ACS vs orthostatic hypotension cbc, cmp, ekg, trop, cxr, lipase, stool hemeoccult protonix push for concern for upper GIB concern EKG: tachycardic rate, sinus rhythm HR 109, no interval abnormalities, narrow QRS, pvcs, LAE, Nonspecific ST and T wave abnormalities. CXR: midline airway, appropriate vascular markings, no blunting of costophrenic angle, + cardiomegaly patient febrile w. rectal temp of 101F sepsis set ordered patient on flagyl and zosyn 08/25/18 12:22 labwork significant for neutropenia, anemia and eosinophilia, w/ elevated platelets labs indicate possible fungal vs parasitic infection, anemia likely 2/2 gib will repeat cbc to confirm cmp with hyponatremia and transminitis trop negative lipase negative patient only reports travel to [place] in June 2018 will cover with cefepime for neutropenic fever. Dr. Stout contacted, evaluated patient, agrees to cefepime and add fluconazole for fungal coverage As differential is broad will send, c.diff, flu swab, rsv, parasite, babesiosis , ehrlicia, HIV patient and son consent to HIV testing 08/25/18 12:28 per son patient had a reaction to vancomycin, will continue cefepime 08/25/18 13:23 Dr. Engle, Neurology, contacted made aware of patient. CTH and CTAP w/ contrast, patient with hx of CKD hoevwer Cr 1.2- will fluid rescucitate after IV administration patient w/ neutropenia and with abdominal pain and GIB concerning for neutropenic enterocolitis 08/25/18 15:32 CTAP: small gallstones, nonobstructing R renal stone, diverticulosis, no colonic wall thickening CT Head: small focal low attenuation density in the R thalamus at site of previous lesion, suggests encephalomalacia likely will need f/u MRI will contact Dr. Engle with CT results. Dr. Kc, GI, contacted, made aware of patient. consider depakite as cause of neutropenia as patient was started on it for migraines after last admission. However would expect thrombocytopenia Will admit for further evaluation and management Samia Osorio, PGY1 Emergency Medicine 08/25/18 15:57 *DC/Admit/Observation/Transfer Diagnosis at time of Disposition: Neutropenia, GI bleed - Discharge Dispostion Condition at time of disposition: Fair Decision to Admit order: Yes - Referrals Referrals: Nehal Blevins [Primary Care Provider] - - Patient Instructions - Post Discharge Activity
--- NOTE | 2018-08-25 11:33 | PDOC ---
Attending Attestation - Resident Resident Name: AjayKirstie xiaoie - ED Attending Attestation I have performed the following: I have examined & evaluated the patient, The case was reviewed & discussed with the resident, I agree w/resident's findings & plan, Exceptions are as noted - HPI HPI: 08/25/18 11:27 68yo F hx DM, HTN, CKD, breast ca s/p resection, dental abscess with extension to brain on zosyn/flagyl through PICC line presents to the ED with generalized weakness and pre-syncope. Pt was seen at her PMD's office this AM and as she was standing to get weighed on the scale, she became very pale, lightheaded and was caught by her son and the medical staff after losing consiousness. LOC x few seconds. They lowered her to the ground, no head strike. BP was low in the office to 90s/50s, and an ambulance was called. In the ED, pt states she feels better but feels weak. Son states she has been having dark watery stools x3 days as well as abdominal pain, burning in sensation in epigastric area since last night. Pt reports some associated dysuria x 4 days. Denies fevers, chills, headache, CP, SOB, LE edema, focal weakness/numbness, stiffneck. Denies redness or pain to the PICC line. - Physicial Exam PE: 08/25/18 11:29 GENERAL: Awake, alert, lethargic but arousable, in no acute distress HEAD: No signs of trauma EYES: EOMI, sclera anicteric, conjunctiva clear ENT: Nares patent, oropharynx clear without exudates. Moist mucosa NECK: Normal ROM, supple, no lymphadenopathy, JVD, or masses LUNGS: Breath sounds equal, clear to auscultation bilaterally. No wheezes, and no crackles HEART: tachy but regular to 104, normal S1 and S2, no murmurs, rubs or gallops ABDOMEN: + diffuse lower abd ttp, no guarding, no rebound. No masses EXTREMITIES: Normal range of motion, no edema. No cords, erythema, or tenderness NEUROLOGICAL: Normal speech, cranial nerves intact, equal strength and sensation b/l SKIN: Warm, Dry, normal turgor, no rashes or lesions noted. - Medical Decision Making 08/25/18 13:05 68yo F with MMP including recent brain abscess s/p PICC line on zosyn and flagyl presents to the ED with syncopal episode, generalized weakness, and dark stools. Vitals remarkable for tachycardia and fever to 101.3. Pt hypotensive in the field, but improved here after fluids on route from EMS Exam with lethargic appearing pt with lower abd ttp. Stool occult + with dark brown stool c/w GIB. PICC line with no erythema or tenderness thus unlikely source. Labs remarkable for a new neutropenia as well as hgb 7.6 likely due to GIB. Pt given pantoprazole IV. Differential reveals eosinophils to 23.5% - possible fungal or parasitic infection? Unclear etiology of neutropenia, possible due to suppression from zosyn/flagyl although other cell lines (platelets) are okay In light of fever despite zosyn/flagyl, pt was covered with cefepime, also added fluconazole per Dr. Stout for fungal coverage Plan for CTH to evaluate abscess as well as CTAP with IV contrast to eval for neutropenic enterocolitis. Pt consented for HIV test given multiple infections C.diff, flu swab, parasite, and babesiosis testing also sent off for further w/u Anticipate admission Heart Score/ECG Review #1 08/25/18 13:25 Twelve-lead EKG was performed and reviewed by me. Sinus tachycardia, rate 109. Normal axis. No ST elevations. 1mm ST depressions in V5 and V6 which are new compared to previous EKG.
[2018-08-25] MEDS ORDERED: PANTOPRAZOLE SODIUM 40 MG VIAL IVPUSH ONE (11:39)
[2018-08-25] MEDS ORDERED: ACETAMINOPHEN 1000 MG/100 ML VIAL (NON FORMULARY) IVPB ONE (11:56)
[2018-08-25] MEDS ORDERED: VANCOMYCIN 1,000 MG in DEXTROSE 5%-WATER - 250 ML IVPB ONE (11:57)
[2018-08-25] MEDS ORDERED: PANTOPRAZOLE SODIUM 40 MG VIAL ONE (11:59)
[2018-08-25] MEDS ORDERED: SODIUM CHLORIDE 1,000 ML IV SCH ×2 (12:00→16:00)
[2018-08-25 12:01] LABS: HEMATOCRIT 23.5 % (32.4-45.2); HEMOGLOBIN 7.6 GM/dL (10.7-15.3); LYMPH % 41.8 % (8-40); MCH 25.3 pg (25.7-33.7); MCHC 32.4 g/dl (32.0-36.0); MEAN CELL VOLUME 78.1 fl (80-96); MONO % 36.2 % (3.8-10.2); NEUT % 0.5 % (42.8-82.8); PLATELET COUNT 385 K/MM3 (134-434); RBC 3.01 M/mm3 (3.60-5.2); RDW 19.6 % (11.6-15.6)
[2018-08-25 12:07] LABS: EOS % 21.5 % (0-4.5); WHITE BLOOD COUNT 1.4 K/mm3 (4.0-10.0)
[2018-08-25 12:14] LABS: INR 1.04 (0.83-1.09); PROTHROMBIN TIME (PATIENT) 12.3 SEC (9.7-13.0)
[2018-08-25] MEDS ORDERED: CEFEPIME HCL/D5W 2 GM/50 ML BAG IVPB ONE (12:15)
[2018-08-25 12:30] LABS: ALBUMIN 2.6 g/dl (3.4-5.0); ALK PHOS 44 U/L (45-117); ANION GAP 8 MMOL/L (8-16); BILIRUBIN,TOTAL 0.2 mg/dL (0.2-1); BLOOD UREA NITROGEN 26 mg/dL (7-18); CHLORIDE 99 mmol/L (98-107); CO2 24 mmol/L (21-32); CREATININE 1.2 mg/dL (0.55-1.3); GLUCOSE,RANDOM 143 mg/dL (74-106); LIPASE 99 U/L (73-393); POTASSIUM 4.3 mmol/L (3.5-5.1); SGOT/AST 160 U/L (15-37); SGPT/ALT 70 U/L (13-61); SODIUM 131 mmol/L (136-145); TOT PROT 5.7 g/dl (6.4-8.2)
[2018-08-25 12:31] LABS: VENOUS PC02 38.5 mmHg (41-51); VENOUS PH 7.38 (7.31-7.41); VENOUS PO2 49.1 mmHg (30-40)
[2018-08-25] MEDS ORDERED: ACETAMINOPHEN INJECTION 100 ML IVPB ONE (12:39)
[2018-08-25] MEDS ORDERED: CEFEPIME 2 GM/100 ML BAG IVPB ONE (12:39)
[2018-08-25 12:45] LABS: ANISOCYTOSIS 1+; MACROCYTOSIS 0; PLATELET ESTIMATE NORMAL
[2018-08-25] MEDS ORDERED: FLUCONAZOLE 100 MG TABLET (UD) PO ONE (12:48)
[2018-08-25] MEDS ORDERED: LACTATED RINGERS SOLUTION 1000 ML INFUS.BAG IV ONE (12:48)
--- NOTE | 2018-08-25 13:01 | CON.ID ---
Consult - Alcohol/Substance Use Hx Alcohol Use: No - Smoking History Smoking history: Never smoked Have you smoked in the past 12 months: No Aproximately how many cigarettes per day: 2,010 Home Medications - Allergies Allergies/Adverse Reactions: Allergies Allergy/AdvReac Type Severity Reaction Status Date / Time No Known Drug Allergies Allergy Verified 08/03/18 22:48 - Home Medications Home Medications: Ambulatory Orders Alendronate Sodium [Fosamax] 70 mg PO WEEKLY 01/02/15 Aspirin [ASA -] 81 mg PO DAILY 01/02/15 Atorvastatin Ca [Lipitor] 80 mg PO HS 01/02/15 Chlorthalidone 25 mg PO DAILY 01/02/15 Lisinopril [Prinivil -] 40 mg PO DAILY 01/02/15 Metoprolol Tartrate 50 mg PO BID 01/02/15 Nifedipine [Nifedipine ER] 60 mg PO BID 01/02/15 Clopidogrel Bisulfate [Clopidogrel] 75 mg PO DAILY 07/03/18 Dulaglutide [Trulicity] 0.75 mg SQ WEEKLY 07/03/18 Metronidazole 500 mg IV Q8H 42 Days tablet 07/17/18 Piperacillin/Tazob 2.25 gm [Zosyn -] 2.25 gm IVPB Q8H vial 07/17/18 Sumatriptan Succinate [Imitrex -] 100 mg PO DAILY PRN 15 Days #30 tablet Divalproex *ER* [Depakote *ER* -] 1,000 mg PO HS #60 tablet. 08/05/18 Divalproex *ER* [Depakote *ER* -] 750 mg PO HS #11 tablet. 08/05/18 Physical Exam Vital Signs: Vital Signs Temperature 101.3 F H 08/25/18 11:28 Pulse Rate 103 H 08/25/18 11:28 Respiratory Rate 17 08/25/18 11:28 Blood Pressure 126/59 L 08/25/18 11:28 O2 Sat by Pulse Oximetry (%) 96 08/25/18 11:28 Labs: CBC, BMP 08/25/18 11:50 08/25/18 11:50
--- NOTE | 2018-08-25 13:31 | EKG ---
Test Reason : Blood Pressure : / mmHG Vent. Rate : 109 BPM Atrial Rate : 109 BPM P-R Int : 160 ms QRS Dur : 084 ms QT Int : 300 ms P-R-T Axes : 034 002 -13 degrees QTc Int : 404 ms POOR DATA QUALITY, INTERPRETATION MAY BE ADVERSELY AFFECTED SINUS TACHYCARDIA WITH OCCASIONAL PREMATURE VENTRICULAR COMPLEXES POSSIBLE LEFT ATRIAL ENLARGEMENT NONSPECIFIC ST AND T WAVE ABNORMALITY ABNORMAL ECG WHEN COMPARED WITH ECG OF 04-AUG-2018 11:13, PREMATURE VENTRICULAR COMPLEXES ARE NOW PRESENT VENT. RATE HAS INCREASED BY 50 BPM NONSPECIFIC T WAVE ABNORMALITY HAS REPLACED INVERTED T WAVES IN LATERAL LEADS Confirmed by MD KAROLINE, ANGELA ([id number]) on 08/25/2018 1:31:21 PM Referred By: Confirmed By:ANGELA RAMEY MD
[2018-08-25] MEDS ORDERED: FLUCONAZOLE 100 MG TABLET (UD) ONE (14:53)
--- NOTE | 2018-08-25 16:51 | PN ---
Teaching Attending Note Name of Resident: Pearl Segovia ATTENDING PHYSICIAN STATEMENT I saw and evaluated the patient. I reviewed the resident's note and discussed the case with the resident. I agree with the resident's findings and plan as documented. SUBJECTIVE: Patient is a 68 year old woman with PMHx of HTN, HLD, Insulin-treated DM, CKD, Moderate aortic stenosis, Breast Ca s/p lumpectomy, radiation therapy and hormone therapy was sent from her primary care doctor's office for having anemia since she had a presyncopal episode in the doctor's office. Patient was admitted last month for having a cerebral abscess where patient is being treated with Zosyn and Flagyl as an outpatient. As per family, patient had a tooth infection in [facility] where they pulled her teeth during the infectious process. OBJECTIVE: Vital Signs Temperature 99.6 F 08/25/18 15:20 Pulse Rate 82 08/25/18 15:20 Respiratory Rate 17 08/25/18 15:20 Blood Pressure 127/72 08/25/18 15:20 O2 Sat by Pulse Oximetry (%) 98 08/25/18 15:20 GENERAL: The patient is awake, but lethargic, follows commands . HEAD: Normal with no signs of trauma. EYES: PERRL, extraocular movements intact, sclera anicteric, conjunctiva clear. ENT: Ears normal, oropharynx clear without exudates, moist mucous membranes. NECK: Trachea midline, full range of motion, supple. LUNGS: Breath sounds equal, clear to auscultation bilaterally, no wheezes, no crackles, no accessory muscle use. HEART: LELIA 3/6 RUB and LUB , S1, S2 positive, no rub or gallop. ABDOMEN: Soft, nontender, nondistended, normoactive bowel sounds, no guarding, no rebound, no hepatosplenomegaly, no masses. EXTREMITIES: 2+ pulses, warm, well-perfused, no edema. positive for PICC line on the right side NEUROLOGICAL: Cranial nerves II through XII grossly intact. gait is unsteady since lethargic. Nuchal rigidity PSYCH: Normal mood, normal affect. SKIN: Warm, dry, normal turgor, no rashes or lesions noted CBCD WBC 1.4 K/mm3 (4.0-10.0) L* 08/25/18 11:50 RBC 3.01 M/mm3 (3.60-5.2) L 08/25/18 11:50 Hgb 7.6 GM/dL (10.7-15.3) L 08/25/18 11:50 Hct 23.5 % (32.4-45.2) L D 08/25/18 11:50 MCV 78.1 fl (80-96) L 08/25/18 11:50 MCHC 32.4 g/dl (32.0-36.0) 08/25/18 11:50 RDW 19.6 % (11.6-15.6) H 08/25/18 11:50 Plt Count 385 K/MM3 (134-434) D 08/25/18 11:50 MPV 8.0 fl (7.5-11.1) D 08/25/18 11:50 CMP Sodium 131 mmol/L (136-145) L 08/25/18 11:50 Potassium 4.3 mmol/L (3.5-5.1) 08/25/18 11:50 Chloride 99 mmol/L (98-107) 08/25/18 11:50 Carbon Dioxide 24 mmol/L (21-32) 08/25/18 11:50 Anion Gap 8 MMOL/L (8-16) 08/25/18 11:50 BUN 26 mg/dL (7-18) H 08/25/18 11:50 Creatinine 1.2 mg/dL (0.55-1.3) 08/25/18 11:50 Random Glucose 143 mg/dL (74-106) H 08/25/18 11:50 Calcium 8.0 mg/dL (8.5-10.1) L 08/25/18 11:50 Total Bilirubin 0.2 mg/dL (0.2-1) 08/25/18 11:50 AST 160 U/L (15-37) H 08/25/18 11:50 ALT 70 U/L (13-61) H 08/25/18 11:50 Alkaline Phosphatase 44 U/L (45-117) L 08/25/18 11:50 Total Protein 5.7 g/dl (6.4-8.2) L 08/25/18 11:50 Albumin 2.6 g/dl (3.4-5.0) L 08/25/18 11:50 CARDIAC ENZYMES Troponin I < 0.02 ng/ml (0.00-0.05) 08/25/18 11:50 Current Medications Generic Name Dose Route Start Last Admin Trade Name Freq PRN Reason Stop Dose Admin Sodium Chloride 1,000 mls @ 0 mls/hr 08/25/18 12:00 08/25/18 12:38 Normal Saline - IV 1,000 mls/hr ASDIR CECILIO Administration Wide Open Metronidazole 500 mg in 100 mls @ 100 mls/hr 08/25/18 13:15 08/25/18 14:06 Flagyl 500mg Premixed Ivpb - IVPB 100 mls/hr Q8H-IV CECILIO Administration Piperacillin Sod/Tazobactam 50 mls @ 100 mls/hr 08/25/18 18:00 Sod 3.375 gm/ Dextrose IVPB Q8H-IV CECILIO Protocol Sodium Chloride 1,000 mls @ 0 mls/hr 08/25/18 16:00 Normal Saline - IV ASDIR CECILIO Wide Open Home Medications Medication Instructions Recorded Alendronate Sodium [Fosamax] 70 mg PO WEEKLY 01/02/15 Aspirin [ASA -] 81 mg PO DAILY 01/02/15 Atorvastatin Ca [Lipitor] 80 mg PO HS 01/02/15 Chlorthalidone 25 mg PO DAILY 01/02/15 Lisinopril [Prinivil -] 40 mg PO DAILY 01/02/15 Metoprolol Tartrate 50 mg PO BID 01/02/15 Nifedipine [Nifedipine ER] 60 mg PO BID 01/02/15 Clopidogrel Bisulfate [Clopidogrel] 75 mg PO DAILY 07/03/18 Dulaglutide [Trulicity] 0.75 mg SQ WEEKLY 07/03/18 Metronidazole 500 mg IV Q8H 42 Days tablet 07/17/18 Piperacillin/Tazob 2.25 gm [Zosyn 2.25 gm IVPB Q8H vial 07/17/18 -] Sumatriptan Succinate [Imitrex -] 100 mg PO DAILY PRN 15 Days #30 07/17/18 tablet Divalproex *ER* [Depakote *ER* -] 750 mg PO HS #11 tablet.sa 08/05/18 Divalproex *ER* [Depakote *ER* -] 750 mg PO HS 08/25/[address]: reviewed ASSESSMENT AND PLAN: Patient is a 68 year old woman with PMHx of HTN, HLD, Insulin-treated DM, CKD, Moderate aortic stenosis, Breast Ca s/p lumpectomy, radiation therapy and hormone therapy , cerebral abscess 08/07 being treated on IV zosyn and flagyl ; was sent from her primary care doctor's office for having anemia since she had a presyncopal episode in the doctor's office and was found to have a neutropenic fever. # Neutropenic fever : panculture, Ua, urine culture, hem/onc for consult, ID consult Dr. Stout, stool cdiff ordered since having a loose stool. # cerebral abscess being treated with IV antibiotic (PICC line in place) on Zosyn and Flagyl at home , Dr. Engle neuro and id dr stout for further managment. as per neuro to hold off on depakote and imitrex . Neurosurgery consult Dr. Simon womack, repeat the mri to reevaluate the abscess. transfer center is contacted to transfer the patient. # Insulin dependent DM on sliding scale with coverage, IVF
--- NOTE | 2018-08-25 17:11 | CONSULT ---
Consult - text type - Consultation Consultation Note: NEUROLOGY CONSULTATION is greatly appreciated: Events reviewed and discussed with Drs. Osorio and Heber. Patient examined with Son and family at bedside aiding in translation. This 68 yo RH woman with a PMH of IDDM, HTN, HLD, Aortic Stenosis, Breast Ca s/ p lumpectomy, migraine headaches. Well-known to me with recent presentation of right Diabetic CN III neuropathy and right Thalamic Abscess after partial treatment for dental abscess in DR. On zosyn and metronidazole x 6 weeks via picc line. Off decadron after intermediate admission for hyperglycemia. CT at that time showed decreased size of abscess and exam showed in provement in CN III. Returns due to family reports 3 days of fever, abdominal discomfort, loose dark stools and pre-syncopal episode while at PCP office today. Head CT C+/C- (reviewed): Mild atrophy. R thalamic abscess resolved. WBC= 1.4; H/H 7.6/23.5; Platelets= 385; Eosinophils- 21.5%; INR 1.04; PTT 41.0; Vu=341; AST 160, ALT 70, Stool occult (+). C. diff pending. VIPIN: T 101.3. BP 126/59. Neck supple. No evidence of head trauma. Hirsutism to chin. Cath in R subclav.. NEURO: Awake, alert, responsive. A mild OMS may be present. + glabella Able to open right eye, now with ptosis. Improved EOM's OD- full No drift. Normal strength. Normal reflexes except AJ's. Toes downgoing. Coord: No FTN dystaxia Sensory: Decreased vib toes IMP: 1. Non-focal exam 2. Right thalamic abscess after dental abscess- resolved s/p antibiotics 3. Improving diabetic CN III on the right. Suggest: IV fluids, Orthostatic BP's and follow lytes D/C previous antibiotics including metronidazole, zoysn, vanco as well as depakote ER - may have induced pancytopenia/elevated LFT ID consult, heme and GI appreciated Admit to service with neutropenic precautions Pending transfer to [facility] ICU Thank you very much, Lizandro Engle MD
[2018-08-25] MEDS ORDERED: DEXTROSE 5%-WATER - 50 ML IVPB ONE (17:50)
[2018-08-25] MEDS ORDERED: PIPERACILLIN/TAZOBACTAM 3.375 GM VIAL IVPB ONE (17:50)
[2018-08-25] MEDS: PIPERACILLIN/TAZOB 3.375 GM 3.375 GM in DEXTROSE 5%-WATER - 50 ML IVPB SCH ×2 (17:52→18:28)
--- NOTE | 2018-08-25 18:19 | HP ---
CHIEF COMPLAINT: syncope, fever, dark diarrhea PCP: HISTORY OF PRESENT ILLNESS: 68 yo female with PMH IDDM, HTN, CKD, Breast CA (s/p resection), recent admission for dental abscess spread to brain (this week makes 6 weeks of Abx Zosyn/Flagyl via PICC line) who presented to the ER after being sent by her PCP following episode of LOC. Son states they were trying to place her on the scale and she became lightheaded and passed out. They were able to catch her and lower her to the floor without any trauma or fall. The patient is alert and oriented but unable to give a full history which was provided by the son. He states she has been having loose dark stools for about 3-4 days and had a fever that developed 3 days ago. He also endorses increasing weakness and lethargy over the last 4-5 days. Denies any chest pain, SOB, cough, limb weakness, visual defects. She does endorse headache which starts in the frontal region and extends down to posterior neck. ER course was notable for: (1) Febrile 101.3, Tachycardic 103, WBC count 1.4, ANC 0.0, Eosinophils 21 (2) CT Head low attenuation density in right thalamus (3) Recent Travel: [place] PAST MEDICAL HISTORY: ABOVE PAST SURGICAL HISTORY: Breast CA resection, Dental extraction recently Social History: Smoking: Former Alcohol: none Drugs: none Family History: Allergies No Known Drug Allergies Allergy (Verified 08/03/18 22:48) HOME MEDICATIONS: Home Medications Medication Instructions Recorded Alendronate Sodium [Fosamax] 70 mg PO WEEKLY 01/02/15 Aspirin [ASA -] 81 mg PO DAILY 01/02/15 Atorvastatin Ca [Lipitor] 80 mg PO HS 01/02/15 Chlorthalidone 25 mg PO DAILY 01/02/15 Lisinopril [Prinivil -] 40 mg PO DAILY 01/02/15 Metoprolol Tartrate 50 mg PO BID 01/02/15 Nifedipine [Nifedipine ER] 60 mg PO BID 01/02/15 Clopidogrel Bisulfate [Clopidogrel] 75 mg PO DAILY 07/03/18 Dulaglutide [Trulicity] 0.75 mg SQ WEEKLY 07/03/18 Metronidazole 500 mg IV Q8H 42 Days tablet 07/17/18 Piperacillin/Tazob 2.25 gm [Zosyn 2.25 gm IVPB Q8H vial 07/17/18 -] Sumatriptan Succinate [Imitrex -] 100 mg PO DAILY PRN 15 Days #30 07/17/18 tablet Divalproex *ER* [Depakote *ER* -] 750 mg PO HS #11 tablet.sa 08/05/18 Divalproex *ER* [Depakote *ER* -] 750 mg PO HS 08/25/18 REVIEW OF SYSTEMS CONSTITUTIONAL: fever,generalized weakness, malaise Absent: chills, diaphoresis, , loss of appetite, weight change HEENT: Absent: rhinorrhea, nasal congestion, throat pain, throat swelling, difficulty swallowing, mouth swelling, ear pain, eye pain, visual changes CARDIOVASCULAR: syncope Absent: chest pain,, palpitations, irregular heart rate, lightheadedness, peripheral edema RESPIRATORY: Absent: cough, shortness of breath, dyspnea with exertion, orthopnea, wheezing, stridor, hemoptysis GASTROINTESTINAL: abdominal pain Absent: , abdominal distension, nausea, vomiting, diarrhea, constipation, melena , hematochezia GENITOURINARY: Absent: dysuria, frequency, urgency, hesitancy, hematuria, flank pain, genital pain MUSCULOSKELETAL: Absent: myalgia, arthralgia, joint swelling, back pain, neck pain SKIN: Absent: rash, itching, pallor HEMATOLOGIC/IMMUNOLOGIC: Absent: easy bleeding, easy bruising, lymphadenopathy, frequent infections ENDOCRINE: Absent: unexplained weight gain, unexplained weight loss, heat intolerance, cold intolerance NEUROLOGIC: headache, Absent: focal weakness or paresthesias, dizziness, unsteady gait, seizure, mental status changes, bladder or bowel incontinence PSYCHIATRIC: Absent: anxiety, depression, suicidal or homicidal ideation, hallucinations. PHYSICAL EXAMINATION Vital Signs - 24 hr 08/25/18 08/25/18 08/25/18 11:28 15:20 17:00 Temperature 101.3 F H 99.6 F 99.4 F Pulse Rate 103 H Pulse Rate [ 82 76 Apical] Respiratory 17 17 17 Rate Blood Pressure 126/59 L Blood Pressure 127/72 124/72 [Right Arm] O2 Sat by Pulse 96 98 98 Oximetry (%) GEN: A&O X 3, no acute distress, though mildly lethargic, latvian speaking only HEENT: PERRL, EOMI, moist mucus membranes NECK: Pain with neck flexion HEART: 3/6 systolic murmur, regular rate and rhythm LUNGS: CTA b/l, no wheezes noted ABDOMEN: Soft, minimal diffuse tenderness, normoactive bowel sounds EXTREMITIES: No peripheral edema or calf tenderness, good pulses NEURO: Right lid weakness (residual from prior CVA), no other focal neuro deficits noted, 4/5 strength throughout, no sensation deficits Laboratory Results - last 24 hr 08/25/18 08/25/18 08/25/18 11:35 11:50 11:50 WBC 1.4 L* RBC 3.01 L Hgb 7.6 L Hct 23.5 L D MCV 78.1 L MCH 25.3 L MCHC 32.4 RDW 19.6 H Plt Count 385 D MPV 8.0 D Absolute Neuts (auto) 0.0 L Neutrophils % 0.5 L Neutrophils % (Manual) 1.0 L Band Neutrophils % 0.0 Lymphocytes % 41.8 H D Lymphocytes % (Manual) 46.9 H Monocytes % 36.2 H D Monocytes % (Manual) 31 H Eosinophils % 21.5 H* D Eosinophils % (Manual) 19.8 H Basophils % 0.0 Basophils % (Manual) 1.0 Myelocytes % (Man) 0 Promyelocytes % (Man) 0 Blast Cells % (Manual) 0 Nucleated RBC % 0 Metamyelocytes 0 Hypochromia 1+ Platelet Estimate Normal Polychromasia 0 Poikilocytosis 2+ Anisocytosis 1+ Microcytosis 2+ Macrocytosis 0 Acanthocytes (Spur) 2+ Schistocytes 2+ PT with INR 12.30 INR 1.04 PTT (Actin FS) 41.0 H VBG pH POC VBG pCO2 POC VBG pO2 VBG HCO3 VBG O2 Sat (Turner) VBG Base Excess Sodium Potassium Chloride Carbon Dioxide Anion Gap BUN Creatinine Est GFR (CKD-EPI)AfAm Est GFR (CKD-EPI)NonAf Random Glucose Lactic Acid Calcium Total Bilirubin AST ALT Alkaline Phosphatase Troponin I Total Protein Albumin Lipase Stool Occult Blood Positive Influenza A (Rapid) Influenza B (Rapid) RSV Rapid Blood Type Antibody Screen 08/25/18 08/25/18 08/25/18 11:50 11:50 12:15 WBC RBC Hgb Hct MCV MCH MCHC RDW Plt Count MPV Absolute Neuts (auto) Neutrophils % Neutrophils % (Manual) Band Neutrophils % Lymphocytes % Lymphocytes % (Manual) Monocytes % Monocytes % (Manual) Eosinophils % Eosinophils % (Manual) Basophils % Basophils % (Manual) Myelocytes % (Man) Promyelocytes % (Man) Blast Cells % (Manual) Nucleated RBC % Metamyelocytes Hypochromia Platelet Estimate Polychromasia Poikilocytosis Anisocytosis Microcytosis Macrocytosis Acanthocytes (Spur) Schistocytes PT with INR INR PTT (Actin FS) VBG pH 7.38 POC VBG pCO2 38.5 L POC VBG pO2 49.1 H VBG HCO3 22.5 L VBG O2 Sat (Turner) 80.8 H VBG Base Excess -1.8 Sodium 131 L Potassium 4.3 Chloride 99 Carbon Dioxide 24 Anion Gap 8 BUN 26 H Creatinine 1.2 Est GFR (CKD-EPI)AfAm 53.78 Est GFR (CKD-EPI)NonAf 46.40 Random Glucose 143 H Lactic Acid Calcium 8.0 L Total Bilirubin 0.2 AST 160 H ALT 70 H Alkaline Phosphatase 44 L Troponin I < 0.02 Total Protein 5.7 L Albumin 2.6 L Lipase 99 Stool Occult Blood Influenza A (Rapid) Influenza B (Rapid) RSV Rapid Blood Type O POSITIVE Antibody Screen Negative 08/25/18 08/25/18 08/25/18 12:15 15:00 15:00 WBC RBC Hgb Hct MCV MCH MCHC RDW Plt Count MPV Absolute Neuts (auto) Neutrophils % Neutrophils % (Manual) Band Neutrophils % Lymphocytes % Lymphocytes % (Manual) Monocytes % Monocytes % (Manual) Eosinophils % Eosinophils % (Manual) Basophils % Basophils % (Manual) Myelocytes % (Man) Promyelocytes % (Man) Blast Cells % (Manual) Nucleated RBC % Metamyelocytes Hypochromia Platelet Estimate Polychromasia Poikilocytosis Anisocytosis Microcytosis Macrocytosis Acanthocytes (Spur) Schistocytes PT with INR INR PTT (Actin FS) VBG pH POC VBG pCO2 POC VBG pO2 VBG HCO3 VBG O2 Sat (Turner) VBG Base Excess Sodium Potassium Chloride Carbon Dioxide Anion Gap BUN Creatinine Est GFR (CKD-EPI)AfAm Est GFR (CKD-EPI)NonAf Random Glucose Lactic Acid 0.9 Calcium Total Bilirubin AST ALT Alkaline Phosphatase Troponin I Total Protein Albumin Lipase Stool Occult Blood Influenza A (Rapid) Negative Influenza B (Rapid) Negative RSV Rapid Negative Blood Type Antibody Screen ASSESSMENT/PLAN: 68 yo female with PMH IDDM, HTN, CKD, Breast CA (s/p resection), recent admission for dental abscess spread to brain (this week makes 6 weeks of Abx Zosyn/Flagyl via PICC line) who presented to the ER after being sent by her PCP following episode of LOC. Sepsis and Neutropenic Fever likely secondary to known brain abscess vs uknown infectious source -Pt has completed almost 6 weeks of Zosyn/Flagyl via PICC as per ID recs -Pt with reaction to vanco on previous admission? -Neurology consult appreciated - strongly recommend transfer to tertiary care, hold Zosyn/flagyl as could be causing neutropenia/eosinophilia -ID consulted - Cefepime and Fluconazole -Pt will likely require L.P. with meningeal signs present -Heme/Onc consulted -Neurosurgery consulted Brain Abscess vs Encephalomalacia vs Necrosis? -CT head noted with possible encephalomalacia where previous lesion was located -Case discussed with medicine service at [facility], Neurosurgery there agrees with transfer HTN -b.p 101/41 (orthostatic vitals unchanged) -Hold home b.p meds for now DM -BGMs Q4 -Insulin Sliding Scale for glycemic control -hold home meds for now FEN -2L in ED, LR @ 83 cc/hr for now, monitor volume status -monitor and replete -NPO prior to transfer in case of procedure, also pt lethargic and some risk of aspiration DVT Prophylaxis -Hold for possible acute bleed -SCDs Disposition Transfer to [facility] medicine service with Neurosurgery aware Visit type - Emergency Visit Emergency Visit: Yes ED Registration Date: 08/25/18 Care time: The patient presented to the Emergency Department on the above date and was hospitalized for further evaluation of their emergent condition. - New Patient This patient is new to me today: Yes Date on this admission: 08/25/18 - Critical Care Critical Care patient: No
[2018-08-25 18:23] VITALS: BMI 27.4
[2018-08-25] MEDS: LACTATED RINGERS SOLUTION 1,000 ML IV SCH (18:26)
--- NOTE | 2018-08-25 19:26 | CON.GI ---
Consult Consult Specialty:: GI Referred by:: [facility] Reason for Consultation:: Anemia and guaiac + stool - History of Present Illness Chief Complaint: [employer] [id number] Utilized: "I was brought by an ambulance from my doctor's office". History of Present Illness: 68F admitted through [facility] ER for evaluation of near syncopal episode at her PMD' s office today. Noted hypotensive as well with SBP in 90's. She complained of abdominal pain and has been having black diarrhea for the last 3 days. She was noted guaiac positive in the ER with hgb of 7.6 and severely leukopenic with WBC of 1.4. She is maintained on ASA/Plavix. In review of her home medication list it does not appear as though she is on GI prophylaxis. She may have received dexamethasone on a recent admission. She had temp of 101.[address] scan of the abdomen and pelvis was unrevealing aside from small gallstones and a non obstructing renal stone. She was recently admitted for CNIII palsy due to thalamic abscess (thought to be a complication of a dental abscess. completed a 6 week course of Zosyn/ Flagyl via PICC) 06/30 and was readmitted 07/31 after a syncopal episode. She was found to be Orthostatic at that time + for which she was given IV Hydration. Neurology was consulted and her home migraine regimen was adjusted (was on depakote from last admission). Infectious disease was consulted and patient continued her prior ABx regimen. Complains of chills and is somewhat lethargic. She has never had an EGD or colonoscopy. There is no family history of colorectal cancer or other GI malignancy. 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 abscess following dental infection) Cardio/Vascular: Yes: Aortic Insufficiency (moderate), Aortic Stenosis (moderate ), HTN, Hyperlipdemia, Mitral Insufficiency (trace) Renal/: Yes: Renal Inusuff ...: No Heme/Onc: Yes: Cancer (BCA) Endocrine: Yes: Diabetes Mellitus (DM II) - Past Surgical History Additional Surgical History: Lumpectomy (left breast) - Alcohol/Substance Use Hx Alcohol Use: No History of Substance Use: reports: None - Smoking History Smoking history: Former smoker Have you smoked in the past 12 months: No Aproximately how many cigarettes per day: 2,010 If you are a former smoker, when did you quit?: 20 years ago - Social History Usual Living Arrangement: With Spouse ADL: Independent Place of : Other ([facility]) History of Recent Travel: Yes ([facility] 06/30) Home Medications - Allergies Allergies/Adverse Reactions: Allergies Allergy/AdvReac Type Severity Reaction Status Date / Time divalproex sodium AdvReac Verified 08/25/18 18:25 [From Depakote] metronidazole [From Flagyl] AdvReac Verified 08/25/18 18:25 piperacillin [From Zosyn] AdvReac Verified 08/25/18 18:25 tazobactam [From Zosyn] AdvReac Verified 08/25/18 18:25 vancomycin AdvReac Verified 08/25/18 18:25 - Home Medications Home Medications: Ambulatory Orders Alendronate Sodium [Fosamax] 70 mg PO WEEKLY 01/02/15 Aspirin [ASA -] 81 mg PO DAILY 01/02/15 Atorvastatin Ca [Lipitor] 80 mg PO HS 01/02/15 Chlorthalidone 25 mg PO DAILY 01/02/15 Lisinopril [Prinivil -] 40 mg PO DAILY 01/02/15 Metoprolol Tartrate 50 mg PO BID 01/02/15 Nifedipine [Nifedipine ER] 60 mg PO BID 01/02/15 Clopidogrel Bisulfate [Clopidogrel] 75 mg PO DAILY 07/03/18 Dulaglutide [Trulicity] 0.75 mg SQ WEEKLY 07/03/18 Metronidazole 500 mg IV Q8H 42 Days tablet 07/17/18 Piperacillin/Tazob 2.25 gm [Zosyn -] 2.25 gm IVPB Q8H vial 07/17/18 Sumatriptan Succinate [Imitrex -] 100 mg PO DAILY PRN 15 Days #30 tablet Divalproex *ER* [Depakote *ER* -] 750 mg PO HS #11 tablet.sa 08/05/18 Divalproex *ER* [Depakote *ER* -] 750 mg PO HS 08/25/18 Family Disease History - Family Disease History Family Disease History: Other: Father (: heart problem), Mother (: heart problem), Son (2, one with heart problem) Other Family History: Patient has brothers and sisters but was uncertain of how many. No family history of colorectal cancer or other GI malignancy Review of Systems - Review of Systems Constitutional: reports: Chills Cardiovascular: denies: Chest Pain Respiratory: denies: Cough Gastrointestinal: reports: Abdominal Pain, Diarrhea, Melena Physical Exam-GI Vital Signs: Vital Signs Temperature 99.5 F 08/25/18 18:09 Pulse Rate 83 08/25/18 18:09 Respiratory Rate 20 08/25/18 18:09 Blood Pressure 96/40 L 08/25/18 18:09 O2 Sat by Pulse Oximetry (%) 99 08/25/18 18:09 Constitutional: Yes: Calm Eyes: No: Sclera Icterus Respiratory: Yes: CTA Bilaterally Gastrointestinal Inspection: No: Distention ...Auscultate: Yes: Normoactive Bowel Sounds ...Palpate: Yes: Soft. No: Hepatomegaly, Splenomegaly, Tenderness ...Percussion: No: Tympanitic ...Rectal Exam: Yes: Other Edema: No (No LE edema) Neurological: Yes: Alert Labs: CBC, BMP 08/25/18 11:50 08/25/18 11:50 INR, PTT INR 1.04 (0.83-1.09) 08/25/18 11:50 Hepatic Panel Total Bilirubin 0.2 mg/dL (0.2-1) 08/25/18 11:50 AST 160 U/L (15-37) H 08/25/18 11:50 ALT 70 U/L (13-61) H 08/25/18 11:50 Alkaline Phosphatase 44 U/L (45-117) L 08/25/18 11:50 Albumin 2.6 g/dl (3.4-5.0) L 08/25/18 11:50 Problem List - Problems (1) Anemia Assessment/Plan: With melena by description in setting of DAPT. Also with other things going on such s new onset leukopenia and fevers Advise: NPO w/ IV Hydration Hold ASA/Plavix for now. ? need for continued DAPT. Will need to be reviewed Protonix infusion @ 8mg/Hr. Bolused in ED Repeat CBC ordered for this evening Placed heme consult Discussed possibility of EGD with Ms. Jernigan when medically optimized (? if contributing to near syncopal episode in setting of hypotension) and neutropenia resolved. Discussed potential risks of the procedure like but not limited to bleeding, perforation requiring surgery to repair, infection, sedation medication effects all of which could be potentially life threatening. She has agreed to the procedure. Transfer to [facility] in the works Code(s): D64.9 - ANEMIA, UNSPECIFIED
[2018-08-25 20:43] LABS: EOS % 19.3 % (0-4.5); HEMATOCRIT 21.7 % (32.4-45.2); LYMPH % 58.5 % (8-40); MCHC 31.8 g/dl (32.0-36.0); MEAN CELL VOLUME 78.7 fl (80-96); MEAN PLT VOLUME 8.4 fl (7.5-11.1); MONO % 21.6 % (3.8-10.2); NEUT % 0.6 % (42.8-82.8); PLATELET COUNT 393 K/MM3 (134-434); RBC 2.76 M/mm3 (3.60-5.2); RDW 19.7 % (11.6-15.6)
[2018-08-25 20:47] LABS: HEMOGLOBIN 6.9 GM/dL (10.7-15.3); WHITE BLOOD COUNT 1.4 K/mm3 (4.0-10.0)
--- NOTE | 2018-08-25 21:06 | PN ---
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 Patient has been treated with 6 weeks of antibiotics with zosyn and flagyl. Previously on 08/04 and 08/05 - NORMAL WBC and DIFF , with normal platelets, and Hct 28%. Patient previously with low normal serum Fe++, low ferritin and low TIBC compatible with componenent of chronic disease ( abscess) and blood loss picture. Now with hematest positive dark stool. Will need GI assessment. Also to reassess need for anti-platelet therapy. Difficult to review peripheral smear in view of neutropenia RBC- hypochromia and microcytosis WBC- marked decrease - 25 cell differential --12 lymphs ,7 monos,, 8 eosinophils, 2 basophils. 1 myelocyte platelets- normal morphology Zosyn and flagyl both cause neutropenia reportedly < 1% Imitrex-not reported Chlorthalidone <1% Depokoate - neutropenia has been reported in pediatric population The acuteness of the neutropenia (normal WBC-08/05) and the eosinophilia do suggest an allergic reaction Would consider treatment of neutropenia and febile episode with alternative antibiotics per ID. Also with thrush and will need mycelex. Need to monitor .
[2018-08-25 22:42] LABS: ANISOCYTOSIS 2+; SICKELED CELLS 1+
[2018-08-25] MEDS: PANTOPRAZOLE SODIUM 80 MG in SODIUM CHLORIDE 100 ML IVPB SCH (22:42)
[2018-08-25] MEDS: INSULIN SLIDING SCALE (NOVOLOG) 1 VIAL SQ SCH (22:45)
[2018-08-25] MEDS: NYSTATIN 500,000 UNITS TABLET PO SCH (22:45)
--- NOTE | 2018-08-25 22:48 | CONS ---
DATE OF CONSULTATION: 08/25/2018 This 68-year-old female is being seen for evaluation of neutropenia. The patient had a history of dental abscess with the development subsequently of a 3rd nerve palsy as well as a thalamic abscess. She has been treated with Zosyn and Flagyl via PICC line for 6 weeks. The patient presented recently after lightheaded and dizziness and near-syncopal episode. The patient was febrile and had a white count of 1.4. The patient describes dark, loose, watery stools over the last 3 to 4 days. Review of prior hospitalization reveals, on August 05, the patient had a normal white count, hematocrit of 28%, normal platelet count, and normal differential. Subsequent now, patient has developed abnormalities of liver function tests, low white count at 1400, hematocrit of 23%, and differential, which includes increased eosinophils, increased monocytes, increased lymphocytes, and decreased polys. PAST MEDICAL HISTORY: Breast CA with surgery as well as dental extraction. Patient was a former smoker. Denies alcohol, denies drugs. Denies family history of blood problems or cancer in the family. HOME MEDICATIONS: Fosamax; aspirin; Lipitor; chlorthalidone; lisinopril; metoprolol; nifedipine; Plavix; Trulicity; Flagyl; piperacillin, i.e. Zosyn; Imitrex; and Depakote. REVIEW OF SYSTEMS: Patient denies headaches. Has visual problems. No epistaxis, no dysphagia, no shortness of breath, no chest pain. Diarrhea, as described. No dysuria. CURRENT MEDICATIONS: Protonix. CURRENT PHYSICAL EXAMINATION: Vital Signs: Blood pressure 96/40, temperature 99.5, was febrile, pulse 83. HEENT: Right eye deviation. Reactive pupils. Upper . Patient has thrush. Lungs: Scattered rhonchi. Cardiac: RSR with systolic murmur heard best at the aortic area. Breasts: No dominant masses. Surgical scar in the left upper/outer quadrant. Abdomen: No definite organomegaly. Extremities: No significant lower extremity edema. LABORATORY: WBC 1.4, hematocrit 23 and 21, MCV 78, platelet 385,000 and 393,000 with 42% lymphocytes, 36% monocytes, 21% eosinophils. Head CT: Small foci of low attenuation in the right thalamus, the site of previously described lesion, suggestive of encephalomalacia. No abnormal intracranial enhancing mass lesion, gross infarct, or intracranial hemorrhage. Chest x-ray: Cardiomegaly. IMPRESSION: Previously, the patient had normal WBC, normal differential on August 04, 2018, and August 05, 2018. Current fall in hematocrit may be related to blood loss. Stool is guaiac-positive. Previously, low ferritin of 12. Previously, low-normal serum iron with low TIBC, compatible with chronic disease. The current eosinophilia, lymphocytosis, low white count suggests the possibility of a drug reaction. Zosyn is reported for neutropenia less than 1%, Flagyl less than 1%. Depakote has been reported to have neutropenia in the pediatric population. Imitrex has not been reported, which suggests ID consult for antibiotics in view of neutropenia febrile course. Panculturing. Consider alternatives to current medicine. Patient has thrush and needs therapy for same. STEW MCKENZIE M.D. ISABELA/[id number]
[2018-08-26] MEDS: ACETAMINOPHEN 1000 MG/100 ML VIAL (NON FORMULARY) IVPB PRN ×2 (00:20→20:43)
[2018-08-26 01:36] LABS: EPI CELLS 0.9 /HPF (0-5/HPF); PH,URINE 5.5 (5.0-8.0); URINE APPEARANCE CLEAR; URINE BACTERIA 0.3 /hpf (NEGATIVE); URINE BILIRUBIN NEGATIVE (NEGATIVE); URINE CASTS 0 /lpf (0-8); URINE COLOR YELLOW; URINE GLUCOSE (UA) NEGATIVE (NEGATIVE); URINE KETONE NEGATIVE (NEGATIVE); URINE LEUK ESTERASE NEGATIVE (NEGATIVE); URINE NITRITE NEGATIVE (NEGATIVE); URINE PROTEIN NEGATIVE (NEGATIVE); URINE RBC 0 /hpf (0-4); URINE UROBILINOGEN 0.2 mg/dL (0.2-1.0); URINE WBC 0 /hpf (0-5)
[2018-08-26] MEDS: NYSTATIN 500,000 UNITS TABLET PO SCH ×3 (05:36→21:10)
[2018-08-26] MEDS: PANTOPRAZOLE SODIUM 80 MG in SODIUM CHLORIDE 100 ML IVPB SCH ×2 (05:37→15:53)
[2018-08-26] MEDS: INSULIN SLIDING SCALE (NOVOLOG) 1 VIAL SQ SCH ×4 (06:01→21:10)
[2018-08-26] MEDS: LACTATED RINGERS SOLUTION 1,000 ML IV SCH ×2 (06:23→18:38)
[2018-08-26 08:08] LABS: EOS % 18.6 % (0-4.5); HEMATOCRIT 29.4 % (32.4-45.2); HEMOGLOBIN 9.8 GM/dL (10.7-15.3); LYMPH % 53.9 % (8-40); MCH 26.5 pg (25.7-33.7); MCHC 33.4 g/dl (32.0-36.0); MEAN CELL VOLUME 79.3 fl (80-96); MEAN PLT VOLUME 8.4 fl (7.5-11.1); MONO % 26.9 % (3.8-10.2); NEUT % 0.6 % (42.8-82.8); PLATELET COUNT 321 K/MM3 (134-434); RBC 3.71 M/mm3 (3.60-5.2); RDW 18.7 % (11.6-15.6); WHITE BLOOD COUNT 2.5 K/mm3 (4.0-10.0)
[2018-08-26 08:40] LABS: ALBUMIN 2.6 g/dl (3.4-5.0); BILIRUBIN,TOTAL 0.2 mg/dL (0.2-1); CALCIUM 8.5 mg/dL (8.5-10.1); CREATININE 0.9 mg/dL (0.55-1.3); PHOSPHOROUS 3.4 mg/dL (2.5-4.9); POTASSIUM 4.3 mmol/L (3.5-5.1); TOT PROT 5.6 g/dl (6.4-8.2)
[2018-08-26 10:29] LABS: ANISOCYTOSIS 1+; MACROCYTOSIS 0; OVALOCYTE 1+; PLATELET ESTIMATE NORMAL
--- NOTE | 2018-08-26 10:35 | PN ---
Progress Note (short form) - Note Progress Note: NEUROLOGY PROGRESS: Events reviewed and discussed with RN Coordinator and RN Renetta. Case discussed with Dr. Ellis Mcallister at [facility] who agrees to transfer. ID, GI and heme consults read and appreciated. Pt off all IV abx at this time with neutropenic precautions. S/P transfusion 1 PRBC with improvement in H/H. Dual anti-platelet therapy currently on hold due to melena. Pending transfer to [facility] when bed is available. Pt resting comfortably, without complaints at this time. Currently NPO, pending possible EGD. WBC 1.4-> 2.5; H/H 6.9/21.7-> 9.8/29.4; Eos= 21.5% -> 18.6%; Na 139; UA WBC= 0 VIPIN: T 98-100.3. Neck supple. NEURO: Awake, alert, responsive. Exam unchanged. 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
--- NOTE | 2018-08-26 10:47 | EKG ---
Test Reason : Blood Pressure : / mmHG Vent. Rate : 091 BPM Atrial Rate : 091 BPM P-R Int : 162 ms QRS Dur : 090 ms QT Int : 362 ms P-R-T Axes : 043 007 -11 degrees QTc Int : 445 ms SINUS RHYTHM WITH OCCASIONAL PREMATURE VENTRICULAR COMPLEXES OTHERWISE NORMAL ECG WHEN COMPARED WITH ECG OF 25-AUG-2018 11:37, NONSPECIFIC T WAVE ABNORMALITY NO LONGER EVIDENT IN LATERAL LEADS Confirmed by JOSUÉ WEINSTEIN, BISHOP ([id number]) on 08/26/2018 10:46:56 AM Referred By: Confirmed By:BISHOP MOSES MD
--- NOTE | 2018-08-26 11:59 | PN ---
Progress Note, Physician History of Present Illness: patient stable had a low grade fever had a unit of blood - Current Medication List Current Medications: Active Medications Acetaminophen (Ofirmev Injection -) 1,000 mg IVPB Q6H PRN PRN Reason: FEVER Last Admin: 08/26/18 00:20 Dose: 1,000 mg Lactated Ringer's (Lactated Ringers Solution) 1,000 mls @ 83 mls/hr IV ASDIR [facility] Last Admin: 08/26/18 06:23 Dose: 83 mls/hr Pantoprazole Sodium 80 mg/ (Sodium Chloride) 100 mls @ 10 mls/hr IVPB Q10H [facility] Last Admin: 08/26/18 05:37 Dose: 10 mls/hr Insulin Aspart (Novolog Vial Sliding Scale -) 1 vial SQ ACHS [facility]; Protocol Last Admin: 08/26/18 11:09 Dose: Not Given Nystatin (Nystatin) 500,000 unit PO TID [facility] Last Admin: 08/26/18 05:36 Dose: 500,000 unit - Objective Vital Signs: Vital Signs Temperature 98.9 F 08/26/18 10:00 Pulse Rate 84 08/26/18 10:00 Respiratory Rate 20 08/26/18 10:00 Blood Pressure 147/64 08/26/18 10:00 O2 Sat by Pulse Oximetry (%) 100 08/26/18 09:00 Constitutional: Yes: No Distress, Calm Neck: Yes: Supple Cardiovascular: Yes: S1, S2 Respiratory: Yes: Regular, CTA Bilaterally Gastrointestinal: Yes: Normal Bowel Sounds, Soft Musculoskeletal: Yes: WNL Extremities: Yes: WNL Neurological: Yes: Alert, Other Psychiatric: Yes: Alert Labs: CBC, BMP 08/26/18 07:40 08/26/18 07:40 INR, PTT INR 1.04 (0.83-1.09) 08/25/18 11:50 Assessment/Plan this patient was initially admitted with cerebral abscess and was treated for the same with iv abx now comes back with gi bleed and neutropenia patient transfused all abx are stopped patient has nearly completed the abx course neurology note noted continue to monitor rest as per the team
--- NOTE | 2018-08-26 13:27 | ECHO ---
Name: REINALDO LEPE Exam:Adult Echocardiogram Study Date: 08/26/2018 08:25 AM Age: 68 yrs Reason For Study: R/O Vegetation Height: 65 in Weight: 164 lb BSA: 1.8 m2 MMode/2D Measurements & Calculations IVSd: 1.5 cm Ao root diam: 2.8 cm LVIDd: 4.6 cm LA dimension: 2.8 cm LVIDs: 2.9 cm LVPWd: 1.2 cm EDV(Teich): 96.0 ml LVOT diam: 2.0 cm ESV(Teich): 31.0 ml LAV (MOD-bp): 55.7 ml Doppler Measurements & Calculations MV E max alin: 109.0 cm/sec Ao V2 max: 328.2 cm/sec MV A max alin: 133.1 cm/sec Ao max P.1 mmHg MV E/A: 0.82 Ao V2 mean: 245.6 cm/sec MV dec time: 0.05 sec Ao mean P.7 mmHg Ao V2 VTI: 77.8 cm JULIO(I,D): 0.64 cm2 AI P1/2t: 281.0 msec JULIO(V,D): 0.75 cm2 AI max alin: 399.8 cm/sec LV V1 max P.6 mmHg AI max P.9 mmHg LV V1 mean P.3 mmHg AI dec slope: 416.8 cm/sec2 LV V1 max: 80.1 cm/sec LV V1 mean: 53.8 cm/sec LV V1 VTI: 16.3 cm MR max alin: 540.5 cm/sec SV(LVOT): 49.8 ml MR max P.8 mmHg TV V2 max: 267.4 cm/sec PA V2 max: 115.4 cm/sec TV max P.6 mmHg PA max P.3 mmHg Med Peak E' Alin: 9.2 cm/sec Med E/e': 11.8 Lat Peak E' Alin: 6.9 cm/sec Lat E/e': 15.9 Procedure A two-dimensional transthoracic echocardiogram with color flow and Doppler was performed. Left Ventricle There is moderate concentric left ventricular hypertrophy. The left ventricular ejection fraction is normal. The left ventricular wall motion is normal. Right Ventricle The right ventricle is normal in size and function. Atria Normal left and right atrial size and function. Mitral Valve There is mild mitral valve thickening. There is no mitral valve stenosis. There is mild to moderate m itral regurgitation. Tricuspid Valve There is mild tricuspid valve thickening. There is no tricuspid stenosis. There is mild tricuspid regurgitation. Right ventricular systolic pressure is elevated at 30-40mmHg. Aortic Valve There is moderate aortic valve thickening. There is moderate aortic sclerosis.;. The aortic valve is not well visualized. Moderate valvular aortic stenosis. Moderate aortic regurgitation. Pulmonic Valve The pulmonic valve is not well visualized. Great Vessels The aortic root is not well visualized. Pericardium/Pleura There is no pericardial effusion. Interpretation Summary There is moderate concentric left ventricular hypertrophy. The left ventricular ejection fraction is normal. Moderate aortic regurgitation. Moderate valvular aortic stenosis. There is moderate aortic valve thickening. There is moderate aortic sclerosis.; There is mild tricuspid regurgitation. Right ventricular systolic pressure is elevated at 30-40mmHg. The left ventricular wall motion is normal. There is mild to moderate mitral regurgitation. The aortic valve is not well visualized. MD Robbie Simpson 08/26/2018 01:27 PM
--- NOTE | 2018-08-26 14:46 | PN ---
Physical Exam: SUBJECTIVE: Patient seen and examined this AM. States she is doing somewhat better than yesterday, complaining of some chest pain. 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), no other focal neuro deficits noted, 4/5 strength throughout, no sensation deficits Laboratory Results - last 24 hr 08/25/18 08/25/18 08/25/18 11:50 15:00 15:00 WBC RBC Hgb Hct MCV MCH MCHC RDW Plt Count MPV Absolute Neuts (auto) Total Counted Neutrophils % Neutrophils % (Manual) Band Neutrophils % Lymphocytes % Lymphocytes % (Manual) Monocytes % Monocytes % (Manual) Eosinophils % Eosinophils % (Manual) Basophils % Basophils % (Manual) Myelocytes % (Man) Promyelocytes % (Man) Blast Cells % (Manual) Nucleated RBC % Metamyelocytes Hypochromia Platelet Estimate Polychromasia Poikilocytosis Anisocytosis Microcytosis Macrocytosis Sickle Cells Ovalocytes Acanthocytes (Spur) Schistocytes Retic Count Sodium Potassium Chloride Carbon Dioxide Anion Gap BUN Creatinine Est GFR (CKD-EPI)AfAm Est GFR (CKD-EPI)NonAf POC Glucometer Random Glucose Calcium Phosphorus Magnesium Total Bilirubin AST ALT Alkaline Phosphatase Troponin I Total Protein Albumin Vitamin B12 Serum Folate TSH Urine Color Urine Appearance Urine pH Ur Specific Mereta Urine Protein Urine Glucose (UA) Urine Ketones Urine Blood Urine Nitrite Urine Bilirubin Urine Urobilinogen Ur Leukocyte Esterase Urine WBC (Auto) Urine RBC (Auto) Urine Casts (Auto) U Epithel Cells (Auto) Urine Bacteria (Auto) HIV 1&2 Antibody Screen HIV P24 Antigen Influenza A (Rapid) Negative Influenza B (Rapid) Negative RSV Rapid Negative Blood Type O POSITIVE Antibody Screen Negative Crossmatch See Detail 08/25/18 08/25/18 08/25/18 19:43 19:43 19:45 WBC 1.4 L* RBC 2.76 L Hgb 6.9 L* Hct 21.7 L MCV 78.7 L MCH 25.0 L MCHC 31.8 L RDW 19.7 H Plt Count 393 MPV 8.4 Absolute Neuts (auto) 0.0 L Total Counted 100 Neutrophils % 0.6 L Neutrophils % (Manual) 2.0 L Band Neutrophils % Lymphocytes % 58.5 H D Lymphocytes % (Manual) 63.0 H D Monocytes % 21.6 H Monocytes % (Manual) 9 Eosinophils % 19.3 H Eosinophils % (Manual) 26.0 H Basophils % 0.0 Basophils % (Manual) Myelocytes % (Man) Promyelocytes % (Man) Blast Cells % (Manual) Nucleated RBC % 1 H Metamyelocytes Hypochromia 2+ Platelet Estimate Polychromasia Poikilocytosis Anisocytosis 2+ Microcytosis 2+ Macrocytosis Sickle Cells 1+ Ovalocytes Acanthocytes (Spur) Schistocytes 1+ Retic Count 0.91 Sodium Potassium Chloride Carbon Dioxide Anion Gap BUN Creatinine Est GFR (CKD-EPI)AfAm Est GFR (CKD-EPI)NonAf POC Glucometer Random Glucose Calcium Phosphorus Magnesium Total Bilirubin AST ALT Alkaline Phosphatase Troponin I Total Protein Albumin Vitamin B12 Serum Folate TSH Urine Color Urine Appearance Urine pH Ur Specific Mereta Urine Protein Urine Glucose (UA) Urine Ketones Urine Blood Urine Nitrite Urine Bilirubin Urine Urobilinogen Ur Leukocyte Esterase Urine WBC (Auto) Urine RBC (Auto) Urine Casts (Auto) U Epithel Cells (Auto) Urine Bacteria (Auto) HIV 1&2 Antibody Screen Negative HIV P24 Antigen Negative Influenza A (Rapid) Influenza B (Rapid) RSV Rapid Blood Type Antibody Screen Crossmatch 08/25/18 08/26/18 08/26/18 22:44 00:20 01:00 WBC RBC Hgb Hct MCV MCH MCHC RDW Plt Count MPV Absolute Neuts (auto) Total Counted Neutrophils % Neutrophils % (Manual) Band Neutrophils % Lymphocytes % Lymphocytes % (Manual) Monocytes % Monocytes % (Manual) Eosinophils % Eosinophils % (Manual) Basophils % Basophils % (Manual) Myelocytes % (Man) Promyelocytes % (Man) Blast Cells % (Manual) Nucleated RBC % Metamyelocytes Hypochromia Platelet Estimate Polychromasia Poikilocytosis Anisocytosis Microcytosis Macrocytosis Sickle Cells Ovalocytes Acanthocytes (Spur) Schistocytes Retic Count Sodium Potassium Chloride Carbon Dioxide Anion Gap BUN Creatinine Est GFR (CKD-EPI)AfAm Est GFR (CKD-EPI)NonAf POC Glucometer 98 Random Glucose Calcium Phosphorus Magnesium Total Bilirubin AST ALT Alkaline Phosphatase Troponin I 0.05 Total Protein Albumin Vitamin B12 Serum Folate TSH Urine Color Yellow Urine Appearance Clear Urine pH 5.5 Ur Specific Mereta 1.018 Urine Protein Negative Urine Glucose (UA) Negative Urine Ketones Negative Urine Blood Trace Urine Nitrite Negative Urine Bilirubin Negative Urine Urobilinogen 0.2 Ur Leukocyte Esterase Negative Urine WBC (Auto) 0 Urine RBC (Auto) 0 Urine Casts (Auto) 0 U Epithel Cells (Auto) 0.9 Urine Bacteria (Auto) 0.3 HIV 1&2 Antibody Screen HIV P24 Antigen Influenza A (Rapid) Influenza B (Rapid) RSV Rapid Blood Type Antibody Screen Crossmatch 08/26/18 08/26/18 08/26/18 05:38 07:40 07:40 WBC 2.5 L RBC 3.71 Hgb 9.8 L Hct 29.4 L D MCV 79.3 L MCH 26.5 MCHC 33.4 RDW 18.7 H Plt Count 321 MPV 8.4 Absolute Neuts (auto) 0.0 L Total Counted Neutrophils % 0.6 L Neutrophils % (Manual) 0.0 L Band Neutrophils % 0.0 Lymphocytes % 53.9 H Lymphocytes % (Manual) 57.6 H Monocytes % 26.9 H Monocytes % (Manual) 19 H D Eosinophils % 18.6 H Eosinophils % (Manual) 20.6 H Basophils % 0.0 Basophils % (Manual) 1.1 Myelocytes % (Man) 0 Promyelocytes % (Man) 0 Blast Cells % (Manual) 0 Nucleated RBC % 1 H Metamyelocytes 0 Hypochromia 0 Platelet Estimate Normal Polychromasia 0 Poikilocytosis 2+ Anisocytosis 1+ Microcytosis 1+ Macrocytosis 0 Sickle Cells Ovalocytes 1+ Acanthocytes (Spur) 1+ Schistocytes 1+ Retic Count Sodium 139 Potassium 4.3 Chloride 105 Carbon Dioxide 26 Anion Gap 8 BUN 13 Creatinine 0.9 Est GFR (CKD-EPI)AfAm 76.14 Est GFR (CKD-EPI)NonAf 65.70 POC Glucometer 87 Random Glucose 89 Calcium 8.5 Phosphorus 3.4 Magnesium 2.0 Total Bilirubin 0.2 AST 152 H ALT 78 H Alkaline Phosphatase 45 Troponin I Total Protein 5.6 L Albumin 2.6 L Vitamin B12 Serum Folate TSH 2.50 Urine Color Urine Appearance Urine pH Ur Specific Mereta Urine Protein Urine Glucose (UA) Urine Ketones Urine Blood Urine Nitrite Urine Bilirubin Urine Urobilinogen Ur Leukocyte Esterase Urine WBC (Auto) Urine RBC (Auto) Urine Casts (Auto) U Epithel Cells (Auto) Urine Bacteria (Auto) HIV 1&2 Antibody Screen HIV P24 Antigen Influenza A (Rapid) Influenza B (Rapid) RSV Rapid Blood Type Antibody Screen Crossmatch 08/26/18 08/26/18 07:40 11:08 WBC RBC Hgb Hct MCV MCH MCHC RDW Plt Count MPV Absolute Neuts (auto) Total Counted Neutrophils % Neutrophils % (Manual) Band Neutrophils % Lymphocytes % Lymphocytes % (Manual) Monocytes % Monocytes % (Manual) Eosinophils % Eosinophils % (Manual) Basophils % Basophils % (Manual) Myelocytes % (Man) Promyelocytes % (Man) Blast Cells % (Manual) Nucleated RBC % Metamyelocytes Hypochromia Platelet Estimate Polychromasia Poikilocytosis Anisocytosis Microcytosis Macrocytosis Sickle Cells Ovalocytes Acanthocytes (Spur) Schistocytes Retic Count Sodium Potassium Chloride Carbon Dioxide Anion Gap BUN Creatinine Est GFR (CKD-EPI)AfAm Est GFR (CKD-EPI)NonAf POC Glucometer 83 Random Glucose Calcium Phosphorus Magnesium Total Bilirubin AST ALT Alkaline Phosphatase Troponin I Total Protein Albumin Vitamin B12 2080 H Serum Folate 19 H TSH Urine Color Urine Appearance Urine pH Ur Specific Mereta Urine Protein Urine Glucose (UA) Urine Ketones Urine Blood Urine Nitrite Urine Bilirubin Urine Urobilinogen Ur Leukocyte Esterase Urine WBC (Auto) Urine RBC (Auto) Urine Casts (Auto) U Epithel Cells (Auto) Urine Bacteria (Auto) HIV 1&2 Antibody Screen HIV P24 Antigen Influenza A (Rapid) Influenza B (Rapid) RSV Rapid Blood Type Antibody Screen Crossmatch Active Medications Generic Name Dose Route Start Last Admin Trade Name Freq PRN Reason Stop Dose Admin Acetaminophen 1,000 mg 08/26/18 00:05 08/26/18 00:20 Ofirmev Injection - IVPB 1,000 mg Q6H PRN Administration FEVER Lactated Ringer's 1,000 mls @ 83 mls/hr 08/25/18 18:00 08/26/18 06:23 Lactated Ringers Solution IV 83 mls/hr ASDIR CECILIO Administration Pantoprazole Sodium 80 mg/ 100 mls @ 10 mls/hr 08/25/18 20:15 08/26/18 05:37 Sodium Chloride IVPB 10 mls/hr Q10H CECILIO Administration 8 MG/HR Insulin Aspart 1 vial 08/25/18 22:00 08/26/18 11:09 Novolog Vial Sliding Scale - SQ Not Given ACHS [facility] Protocol Nystatin 500,000 unit 08/25/18 22:00 08/26/18 14:41 Nystatin PO 500,000 unit TID [facility]ECILIO Administration ASSESSMENT/PLAN: 68 yo female with PMH IDDM, HTN, CKD, Breast CA (s/p resection), recent admission for dental abscess spread to brain (this week makes 6 weeks of Abx Zosyn/Flagyl via PICC line) who presented to the ER after being sent by her PCP following episode of LOC. Sepsis and Neutropenic Fever likely secondary to known brain abscess vs uknown infectious source -Pt completed almost 6 weeks of Zosyn/Flagyl via PICC as per ID recs -Pt with reaction to vanco on previous admission? -Neurology consult appreciated - strongly recommend transfer to tertiary care, hold Zosyn/flagyl as could be causing neutropenia/eosinophilia -ID consulted -Hold Abx for now -Pt will likely require L.P. with meningeal signs present -Heme/Onc consult appreciated -Thrush noted, nystatin started -Neurosurgery consulted Brain Abscess vs Encephalomalacia vs Necrosis? -CT head noted with possible encephalomalacia where previous lesion was located -Case discussed with medicine service at [facility], Neurosurgery there agrees with transfer -Discussed with transfer center who verifies that there will be a bed today and pt will be transferred HTN -b.p stable (orthostatic vitals unchanged) -Hold home b.p meds for now DM -BGMs Q4 -Insulin Sliding Scale for glycemic control -hold home meds for now FEN -2L in ED, LR @ 83 cc/hr for now, monitor volume status -monitor and replete -NPO prior to transfer in case of procedure and due to GI bleed, also pt lethargic and some risk of aspiration DVT Prophylaxis -Hold for possible acute bleed -SCDs Disposition Transfer to [facility] medicine service with Neurosurgery aware Transfer likely today, discussed with transfer center who states multiple isolation beds opening today and pt is at the top of the list for transfer Visit type - Emergency Visit Emergency Visit: Yes ED Registration Date: 08/25/18 Care time: The patient presented to the Emergency Department on the above date and was hospitalized for further evaluation of their emergent condition. - New Patient This patient is new to me today: No - Critical Care Critical Care patient: No
--- NOTE | 2018-08-26 16:38 | PN ---
Progress Note (short form) - Note Progress Note: Brief GI note Pt seen/examined at bedside, reporting chest pain since last night (primary team aware). Denies abdominal pain, n/v or further dark stools. Pending transfer to [facility] (awaiting bed) per nursing staff. On examination: Pt appears lethargic, comfortable Abd soft, nt, nd Labs reviewed. CBC, BMP 08/26/18 07:40 08/26/18 07:40 Recommendations: Monitor Hb and for evidence of bleeding Continue PPI infusion Cardiac workup per primary team in view of episode of chest pain Pt would require endoscopic evaluation however has been deferred currently as pt now being evaluated for chest pain and pending transfer to [facility] Pending timing of transfer please notify GI if change in clinical status or further evidence of bleeding
[2018-08-26] MEDS ORDERED: DEXTROSE 5%-LACTATED RINGERS 1,000 ML IV SCH (16:45)
--- NOTE | 2018-08-26 17:46 | PN ---
Teaching Attending Note Name of Resident: Ty Gray ATTENDING PHYSICIAN STATEMENT I saw and evaluated the patient. I reviewed the resident's note and discussed the case with the resident. I agree with the resident's findings and plan as documented. SUBJECTIVE: she complains of CP since last night in retrosternal area. EKG done earlier with no changes. more confused per son . OBJECTIVE: NAD, lethargic. not oriented to place, age , or time CV: RRR, 3/6 SM at RUSB and LUSB, with radiation to the carotids, and back. also heard at apex Lungs: CTAB Abd: soft, NT, Nd , NL BS Ext: no edema or erythema. Neuro: limited exam. round pupils, reactive to light. R ptosis . limited upward R eye movement. normal L EOM . Strength 4/5 shoulder abduction , 4/5 biceps and triceps, bilaterally not cooperative with LE exam TTP over chest wall ASSESSMENT AND PLAN: 68 y/o lady with h/o breast carcinoma s/p lumpectomy/Rtx , recent diagnosis of thalamic abscess,s/p treatment with flagyl and zosyn, R CNIII palsy, HTN, HLP, CAD, CVA, SKD, migraines, MCA aneurysm, who presented with syncope and hypotension form her PCP office. she was found to be anemic and neutropenic 1- Syncope: likely due to hypotension. - IV hydration - BP improved - holding her lisinopril, nifedipine, and metorpolol. stopped chlorthalidone - if BP cont to be elevated, can resume gradually ( might not need all of them at dc ) 2- Neutropenia: likley reaction to medications ( abx, chlorthalidone, depakote ) - holding all these meds - if ANC cont to increase, then will not need neutropenic precautions 3- Fever, recent diagnosis and treatment for R thalamic abscess. - c diff pending - blood cx pending - CT reviewed. - son refused MRI, despite discussion with him. - echo with no vegetations. - doubt any biliary source, as LFTs could be due to zosynand now trending down 4- GI bleed. suspect upper source. Not a candidate for EGD at this point per GI - cont PPI gtt - monitor H&H - hold ASa and plavix 5- AMS: Encephalopathy, not sure of etiology. ? metabolic vs neurological. - MRI declined by son. - monitor 6- CP: atypical , reproducible. EKG with no changes. trop neg x 1. - repeat trop now 7-h/o CAD, CVA, CNIII palsy. DVT PX: SCDs Dispo : pending transfer to [facility]
--- NOTE | 2018-08-26 18:59 | PN ---
Progress Note (short form) - Note Progress Note: Patient seen and examined Complains of chest pains and SOB Remains lethargic Last Vital Signs Temp Pulse Resp BP Pulse Ox 98.8 F 88 20 137/60 100 08/26/18 14:26 08/26/18 14:26 08/26/18 14:26 08/26/18 14:26 08/26/18 09:00 HEENT: JOLENE, EOM Intact Oropharynx: Thrush Cor: RSR, loud systolic murmur best heard aortic area Lungs: Clear to P&A; diminished breath sounds with poor inspiratory effort Abd: Soft, Normal bowel sounds, No organomegaly Ext:No significant edema Skin: No rashes, Integument intact CBC, BMP 08/26/18 07:40 08/26/18 07:40 Current Medications Generic Name Dose Route Start Last Admin Trade Name Freq PRN Reason Stop Dose Admin Acetaminophen 1,000 mg 08/26/18 00:05 08/26/18 00:20 Ofirmev Injection - IVPB 1,000 mg Q6H PRN Administration FEVER Lactated Ringer's 1,000 mls @ 83 mls/hr 08/25/18 18:00 08/26/18 18:38 Lactated Ringers Solution IV Not Given ASDIR CECILIO Pantoprazole Sodium 80 mg/ 100 mls @ 10 mls/hr 08/25/18 20:15 08/26/18 15:53 Sodium Chloride IVPB 10 mls/hr Q10H CECILIO Administration 8 MG/HR Dextrose/Lactated Ringer's 1,000 mls @ 83 mls/hr 08/26/18 16:45 08/26/18 16: 46 D5-Lr - IV 83 mls/hr ASDIR CECILIO Administration Insulin Aspart 1 vial 08/25/18 22:00 08/26/18 16:30 Novolog Vial Sliding Scale - SQ Not Given ACHS CECILIO Protocol Nystatin 500,000 unit 08/25/18 22:00 08/26/18 14:41 Nystatin PO 500,000 unit TID CECILIO Administration Abnormal Lab Results 08/25/18 08/25/18 08/26/18 11:50 19:43 07:40 WBC 1.4 L* 2.5 L RBC 2.76 L Hgb 6.9 L* 9.8 L Hct 21.7 L 29.4 L D MCV 78.7 L 79.3 L MCH 25.0 L MCHC 31.8 L RDW 19.7 H 18.7 H Absolute Neuts (auto) 0.0 L 0.0 L Neutrophils % 0.6 L 0.6 L Neutrophils % (Manual) 2.0 L 0.0 L Lymphocytes % 58.5 H D 53.9 H Lymphocytes % (Manual) 63.0 H D 57.6 H Monocytes % 21.6 H 26.9 H Monocytes % (Manual) 19 H D Eosinophils % 19.3 H 18.6 H Eosinophils % (Manual) 26.0 H 20.6 H Nucleated RBC % 1 H 1 H AST ALT Total Protein Albumin Vitamin B12 Serum Folate Crossmatch See Detail 08/26/18 08/26/18 07:40 07:40 WBC RBC Hgb Hct MCV MCH MCHC RDW Absolute Neuts (auto) Neutrophils % Neutrophils % (Manual) Lymphocytes % Lymphocytes % (Manual) Monocytes % Monocytes % (Manual) Eosinophils % Eosinophils % (Manual) Nucleated RBC % AST 152 H ALT 78 H Total Protein 5.6 L Albumin 2.6 L Vitamin B12 2080 H Serum Folate 19 H Crossmatch Impression: Thalamic abscess Thrush GI bleeding Neutropenia Chest pain ? chest pain secondary to thrush esophagitis - as EKG stable Would defer endoscopic evaluation in view of neutropenia Would continue to hold off neupogen continue to monitor cbc /diff off meds
[2018-08-26] MEDS ORDERED: PT OWN MED DRAWER 7, Y5N ONE (20:37)
[2018-08-26 21:44] VITALS: BP 149/59; PULSE 86; TEMP 100.8
--- NOTE | 2018-08-28 08:08 | DS ---
Physical Exam: SUBJECTIVE: See progress note from 08/26/18 OBJECTIVE: PHYSICAL EXAM See progress note from 08/26/18 HOSPITAL COURSE: Date of Admission:08/25/18 Date of Discharge: 08/28/18 HPI on Admission: 68 yo female with PMH IDDM, HTN, CKD, Breast CA (s/p resection), recent admission for dental abscess spread to brain (this week makes 6 weeks of Abx Zosyn/Flagyl via PICC line) who presented to the ER after being sent by her PCP following episode of LOC. Son states they were trying to place her on the scale and she became lightheaded and passed out. They were able to catch her and lower her to the floor without any trauma or fall. The patient is alert and oriented but unable to give a full history which was provided by the son. He states she has been having loose dark stools for about 3-4 days and had a fever that developed 3 days ago. He also endorses increasing weakness and lethargy over the last 4-5 days. Denies any chest pain, SOB, cough, limb weakness, visual defects. She does endorse headache which starts in the frontal region and extends down to posterior neck. Hospital Course: Pt was found to be neutropenic with fever from unknown source, possibly brain abscess as focus was still present on Head CT. She was seen by neurology who recommended transfer to a tertiary care center for neurosurgical evaluation and possible surgical intervention. Neurosurgery from [facility] agreed with transfer and patient was accepted and transferred once a bed was available. She also likely had a GI bleed and her Hgb dropped to 6.9, she required 1 unit PRBCs and her Hgb responded well. She was seen by GI who recommended EGD/ Colonoscopy once more stable. Minutes to complete discharge: 36 Discharge Summary Reason For Visit: GASTROINTESTINAL HEMORRHAGE,NEUTROPENIA,FEBRILE NE Condition: Fair - Instructions Disposition: TRANSFER ACUTE CARE/OTHER HOSP - Home Medications Comprehensive Discharge Medication List: Ambulatory Orders Alendronate Sodium [Fosamax] 70 mg PO WEEKLY 01/02/15 Aspirin [ASA -] 81 mg PO DAILY 01/02/15 Atorvastatin Ca [Lipitor] 80 mg PO HS 01/02/15 Chlorthalidone 25 mg PO DAILY 01/02/15 Lisinopril [Prinivil -] 40 mg PO DAILY 01/02/15 Metoprolol Tartrate 50 mg PO BID 01/02/15 Nifedipine [Nifedipine ER] 60 mg PO BID 01/02/15 Clopidogrel Bisulfate [Clopidogrel] 75 mg PO DAILY 07/03/18 Dulaglutide [Trulicity] 0.75 mg SQ WEEKLY 07/03/18 Metronidazole 500 mg IV Q8H 42 Days tablet 07/17/18 Piperacillin/Tazob 2.25 gm [Zosyn -] 2.25 gm IVPB Q8H vial 07/17/18 Sumatriptan Succinate [Imitrex -] 100 mg PO DAILY PRN 15 Days #30 tablet Divalproex *ER* [Depakote *ER* -] 750 mg PO HS 08/25/18 This patient is new to me today: No Emergency Visit: Yes ED Registration Date: 08/25/18 Care time: The patient presented to the Emergency Department on the above date and was hospitalized for further evaluation of their emergent condition. Critical Care patient: No - Discharge Referral Referred to [facility] Med [facility] No
[2018-08-28 15:14] LABS: BABESIA MICROTI ANTIBODY IGG <1:10 (Neg:<1:10); BABESIA MICROTI ANTIBODY IGM <1:10 (Neg:<1:10)
[2018-08-29 13:13] LABS: E. chaffeensis Negative (Negative)
[2018-08-31 14:11] LABS: E. chaff IgG Negative (Neg:<1:64)
== END 2018-08-26 21:55 | disposition short-term general hospital (02) | DRG 94 ==
LOC: JER 10:59 → JERBED 15:32 → J7W 17:32
PROVIDERS: ADMIT Internal Medicine; ATTEND Internal Medicine
DX: G06.0 Intracranial abscess and granuloma (principal); G93.41 Metabolic encephalopathy; B37.0 Candidal stomatitis; K92.2 Gastrointestinal hemorrhage, unspecified; B37.81 Candidal esophagitis; E87.1 Hypo-osmolality and hyponatremia; I12.9 Hypertensive chronic kidney disease with stage 1 through stage 4 chronic kidney disease, or unspecified chronic kidney disease; E11.22 Type 2 diabetes mellitus with diabetic chronic kidney disease; N18.9 Chronic kidney disease, unspecified; Z79.4 Long term (current) use of insulin; E78.5 Hyperlipidemia, unspecified; I35.0 Nonrheumatic aortic (valve) stenosis; Z85.3 Personal history of malignant neoplasm of breast; D70.9 Neutropenia, unspecified; D64.9 Anemia, unspecified; T36.0X5A Adverse effect of penicillins, initial encounter; R42 Dizziness and giddiness; I95.9 Hypotension, unspecified; I69.398 Other sequelae of cerebral infarction; R74.0 Nonspecific elevation of levels of transaminase and lactic acid dehydrogenase [LDH]; K57.30 Diverticulosis of large intestine without perforation or abscess without bleeding; N20.0 Calculus of kidney; N21.0 Calculus in bladder; Z87.891 Personal history of nicotine dependence; D70.2 Other drug-induced agranulocytosis; E11.40 Type 2 diabetes mellitus with diabetic neuropathy, unspecified; R07.89 Other chest pain
CPT/HCPCS: 36415; 36430; 36511; 70460-TC; 71045-TC-FY; 74177-TC; 80053; 81003; 82272; 82550; 82553; 82607; 82746; 82803; 82962; 83605; 83690; 83735; 84100; 84443; 84484; 85025; 85044; 85610; 85730; 86666; 86753; 86850; 86900; 86901; 86922; 87040; 87207; 87389; 87804; 87807; 93005; 93010; 93306-TC; 99285-25; J0131; J7030; P9038; P9058

== ENCOUNTER → 2018-10-02 | Day surgery (SDC) | payer OTHER | END | disposition home or self-care (01) | LOC: JRADIR 10:36 | PROVIDERS: ATTEND Internal Medicine Infectious Disease | PROC: 0JPT0XZ Removal of Tunneled Vascular Access Device from Trunk Subcutaneous Tissue and Fascia, Open Approach (ICD-10-PCS; principal; 2018-10-02) | DX: Z45.2 Encounter for adjustment and management of vascular access device (principal) | CPT/HCPCS: 36589 ==

== ENCOUNTER 2019-03-10 11:53 | Inpatient (IN) | payer OTHER ==
--- NOTE | 2019-03-10 13:09 | PDOC ---
History of Present Illness - General Chief Complaint: Revisit, Lab Variance Stated Complaint: SENT BY PCP, HIGH CALCIUM Time Seen by Provider: 03/10/19 12:55 History Source: Patient Exam Limitations: No Limitations, Language Barrier - History of Present Illness Initial Comments: Jessica Jernigan is a 69 yo F w a pmh of IDDM, HTN, CKD, Breast CA (s/p resection) who presents to the [facility] er sent by her PCP because she had laboratory testing performed which showed the patient an elevated calcium level of 13. The patient plans on going traveling this upcoming Friday to the [facility] so she came to the ER to be evaluated as a precaution to make sure she is safe to travel on Friday. The patient is asymptomatic and has no present complaints. She denies polyuria, abdominal or back pain, confusion, dehydration, decreased PO intake, bone pain or other complaints. Denies fevers, chills, infections, chest pain, SOb, or difficulty breathing. PCP: Nehal Blevins PSH: Breast ca resection Social Hx: Former smoker, denies alcohol or other substance abuse Allergies: Divalproex sodium, metronidazole, zosyn, tazobactam, vancomycin Past History - Past Medical History Allergies/Adverse Reactions: Allergies Allergy/AdvReac Type Severity Reaction Status Date / Time divalproex sodium AdvReac Verified 03/10/19 11:59 [From Depakote] metronidazole [From Flagyl] AdvReac Verified 03/10/19 11:59 piperacillin [From Zosyn] AdvReac Verified 03/10/19 11:59 tazobactam [From Zosyn] AdvReac Verified 03/10/19 11:59 vancomycin AdvReac Verified 03/10/19 11:59 Home Medications: Ambulatory Orders Alendronate Sodium [Fosamax] 70 mg PO WEEKLY 01/02/15 Aspirin [ASA -] 81 mg PO DAILY 01/02/15 Atorvastatin Ca [Lipitor] 80 mg PO HS 01/02/15 Chlorthalidone 25 mg PO DAILY 01/02/15 Lisinopril [Prinivil -] 40 mg PO DAILY 01/02/15 Metoprolol Tartrate 50 mg PO BID 01/02/15 Nifedipine [Nifedipine ER] 60 mg PO BID 01/02/15 Clopidogrel Bisulfate [Clopidogrel] 75 mg PO DAILY 07/03/18 Dulaglutide [Trulicity] 0.75 mg SQ WEEKLY 07/03/18 Metronidazole 500 mg IV Q8H 42 Days tablet 07/17/18 Piperacillin/Tazob 2.25 gm [Zosyn -] 2.25 gm IVPB Q8H vial 07/17/18 Sumatriptan Succinate [Imitrex -] 100 mg PO DAILY PRN 15 Days #30 tablet Divalproex *ER* [Depakote *ER* -] 750 mg PO HS 08/25/18 Anemia: No Asthma: No Cancer: Yes (BREAST CANCER) Cardiac Disorders: No CVA: Yes (06/2018 right ocular eye weakness/confusion) COPD: No CHF: No Dementia: No Diabetes: Yes (IDDM) GI Disorders: No Disorders: No HTN: Yes Hypercholesterolemia: Yes Liver Disease: No Seizures: No Thyroid Disease: No - Surgical History Abdominal Surgery: No Appendectomy: No Cardiac Surgery: No Cholecystectomy: No Lung Surgery: No Neurologic Surgery: No Orthopedic Surgery: No - Immunization History Td Vaccination: Yes TDAP Vaccination: Yes Immunization Up to Date: (Unknown) - Psycho Social/Smoking Cessation Hx Smoking History: Never smoked Have you smoked in the past 12 months: No Number of Cigarettes Smoked Daily: 2,010 If you are a former smoker, when did you quit?: 20 years ago Hx Alcohol Use: No Drug/Substance Use Hx: No Substance Use Type: None Hx Substance Use Treatment: No Review of Systems - Review of Systems Able to Perform ROS?: Yes Comments:: CONSTITUTIONAL: Absent: fever, no chills, no fatigue EYES: Absent: visual changes ENT: Absent: ear pain, no sore throat CARDIOVASCULAR: Absent: chest pain, no palpitations RESPIRATORY: Absent: cough, no SOB GI: Absent: abdominal pain, no nausea, no vomiting, no constipation, no diarrhea GENITOURINARY: Absent: dysuria, no frequency, no hematuria MUSKULOSKELETAL: Absent: back pain, no arthralgia, no myalgia SKIN: Absent: rash NEURO: Absent: headache *Physical Exam - Vital Signs Last Vital Signs Temp Pulse Resp BP Pulse Ox 98 F 87 18 188/75 H 98 03/10/19 11:58 03/10/19 11:58 03/10/19 11:58 03/10/19 11:58 03/10/19 11:58 - Physical Exam Comments: GENERAL: Well-appearing, well-nourished. No apparent distress. HEENT: Normocephalic, atraumatic. PERRL, EOM intact. CARDIOVASCULAR: Normal S1, S2. Regular rate and rhythm. PULMONARY: No evidence of respiratory distress. Lungs clear to auscultation bilaterally. No wheezing, rales or rhonchi. ABDOMEN: Soft, non-distended, non-tender. EXTREMITIES: Normal ROM in all four extremities. No gross deformities. SKIN: Warm, dry. No rash NEUROLOGICAL: No focal neurological deficits. ED Treatment Course - LABORATORY CBC & Chemistry Diagram: 03/10/19 14:00 03/10/19 14:00 Medical Decision Making - Medical Decision Making Jessica Jernigan is a 69 yo F w a pmh of IDDM, HTN, CKD, Breast CA (s/p resection) who presents to the [facility] er sent by her PCP because she had laboratory testing performed which showed the patient an elevated calcium level of 13. The patient plans on going traveling this upcoming Friday to the [facility] so she came to the ER to be evaluated as a precaution to make sure she is safe to travel on Friday. The patient is asymptomatic and has no present complaints. She denies polyuria, abdominal or back pain, confusion, dehydration, decreased PO intake, bone pain or other complaints. Denies fevers, chills, infections, chest pain, SOb, or difficulty breathing. Vital Signs Temp Pulse Resp BP Pulse Ox 98 F 87 18 188/75 H 98 03/10/19 11:58 03/10/19 11:58 03/10/19 11:58 03/10/19 11:58 03/10/19 11:58 DDx IBNLT: Hypercalcemie - true pth vs pthRP, hypervitaminosis D, malignancy, electrolyte/metabolic disturbance Plan: Labs, IV hydration, re-assess. labs: elevated cr at 1.4, elevated calcium at 12.6 Re-assessment: Patient is continuously asymptomatic in ED but given hypercalcemia associated with BRYON we will admit her for IV hydration and electrolyte correction. Will also admit her to rule out hypercalcemia of malignancy. Disposition: Med/surg Discharge - Discharge Information Problems reviewed: Yes Clinical Impression/Diagnosis: BRYON (acute kidney injury), Dehydration, Hypercalcemia, Concern about cancer without diagnosis Condition: Stable - Admission Yes - Follow up/Referral - Patient Discharge Instructions - Post Discharge Activity
[2019-03-10] MEDS ORDERED: SODIUM CHLORIDE 0.9% 500 ML INFUS.BAG IV ONE (13:16)
[2019-03-10 14:22] LABS: BASO % 0.7 % (0-2.0); EOS % 1.3 % (0-4.5); HEMATOCRIT 36.7 % (32.4-45.2); HEMOGLOBIN 11.3 GM/dL (10.7-15.3); LYMPH % 27.7 % (8-40); MCH 22.8 pg (25.7-33.7); MCHC 30.8 g/dl (32.0-36.0); MEAN CELL VOLUME 73.9 fl (80-96); MEAN PLT VOLUME 9.2 fl (7.5-11.1); NEUT % 63.3 % (42.8-82.8); PLATELET COUNT 196 K/MM3 (134-434); RBC 4.96 M/mm3 (3.60-5.2); RDW 20.8 % (11.6-15.6); WHITE BLOOD COUNT 5.7 K/mm3 (4.0-10.0)
--- NOTE | 2019-03-10 14:54 | EKG ---
Test Reason : Blood Pressure : / mmHG Vent. Rate : 080 BPM Atrial Rate : 080 BPM P-R Int : 172 ms QRS Dur : 094 ms QT Int : 362 ms P-R-T Axes : 026 005 -21 degrees QTc Int : 417 ms NORMAL SINUS RHYTHM MODERATE VOLTAGE CRITERIA FOR LVH, MAY BE NORMAL VARIANT T WAVE ABNORMALITY, CONSIDER INFERIOR ISCHEMIA ABNORMAL ECG WHEN COMPARED WITH ECG OF 26-AUG-2018 00:42, PREMATURE VENTRICULAR COMPLEXES ARE NO LONGER PRESENT Confirmed by BISHOP MOSES MD ([id number]) on 03/10/2019 2:54:24 PM Referred By: Confirmed By:BISHOP MOSES MD
[2019-03-10 14:55] LABS: ALBUMIN 4.2 g/dl (3.4-5.0); BILIRUBIN,TOTAL 0.5 mg/dL (0.2-1); CALCIUM 12.6 mg/dL (8.5-10.1); CREATININE 1.4 mg/dL (0.55-1.3); POTASSIUM 4.9 mmol/L (3.5-5.1); TOT PROT 7.7 g/dl (6.4-8.2)
[2019-03-10 15:54] LABS: ANISOCYTOSIS 1+; MACROCYTOSIS 0; OVALOCYTE 1+; PLATELET ESTIMATE NORMAL
[2019-03-10] MEDS ORDERED: ALENDRONATE SODIUM 70 MG PO SCH (18:15)
[2019-03-10] MEDS ORDERED: SUMAtriptan SUCCINATE 50 MG TABLET PO PRN (18:15)
--- NOTE | 2019-03-10 18:49 | HP ---
CHIEF COMPLAINT: mid back and bilateral knee pain PCP:Dr. Nehal Lynch HISTORY OF PRESENT ILLNESS: 69 year old female with a past medical history of IDDM, hypertension, chronic kidney disease, breast cancer (s/p resection in 2011) who presents to the ER as she was sent by her PCP because she had laboratory testing performed which showed the patient an elevated calcium level of 13. Patient reported she has plans of traveling this upcoming Friday to the [facility] so she came to the ER to be evaluated. She denied weight loss, chest or abdominal pain, fever, chills, or dysuria. Her chief complaint was pain to her back and bilateral knees. ER course was notable for hypercalcemia and acute kidney injury. She was admitted for a further medical/ hematology/oncology evaluation. Recent Travel: denies PAST MEDICAL HISTORY: IDDM Hypertension CKD PAST SURGICAL HISTORY: breast cancer with resection in 2011 Social History: Smoking:former tobacco use Alcohol:denies Drugs: denies Allergies divalproex sodium [From Depakote] Adverse Reaction (Verified 03/10/19 11:59) metronidazole [From Flagyl] Adverse Reaction (Verified 03/10/19 11:59) piperacillin [From Zosyn] Adverse Reaction (Verified 03/10/19 11:59) tazobactam [From Zosyn] Adverse Reaction (Verified 03/10/19 11:59) vancomycin Adverse Reaction (Verified 03/10/19 11:59) HOME MEDICATIONS: Home Medications Medication Instructions Recorded Alendronate Sodium [Fosamax] 70 mg PO WEEKLY 01/02/15 Aspirin [ASA -] 81 mg PO DAILY 01/02/15 Atorvastatin Ca [Lipitor] 80 mg PO HS 01/02/15 Chlorthalidone 25 mg PO DAILY 01/02/15 Lisinopril [Prinivil -] 40 mg PO DAILY 01/02/15 Metoprolol Tartrate 50 mg PO BID 01/02/15 Nifedipine [Nifedipine ER] 60 mg PO BID 01/02/15 Clopidogrel Bisulfate [Clopidogrel] 75 mg PO DAILY 07/03/18 Dulaglutide [Trulicity] 0.75 mg SQ WEEKLY 07/03/18 Metronidazole 500 mg IV Q8H 42 Days tablet 07/17/18 Piperacillin/Tazob 2.25 gm [Zosyn 2.25 gm IVPB Q8H vial 07/17/18 -] Sumatriptan Succinate [Imitrex -] 100 mg PO DAILY PRN 15 Days #30 07/17/18 tablet Divalproex *ER* [Depakote *ER* -] 750 mg PO HS 08/25/18 REVIEW OF SYSTEMS CONSTITUTIONAL: Absent: fever, chills, diaphoresis, generalized weakness, malaise, loss of appetite, weight change HEENT: Absent: rhinorrhea, nasal congestion, throat pain, throat swelling, difficulty swallowing, mouth swelling, ear pain, eye pain, visual changes CARDIOVASCULAR: Absent: chest pain, syncope, palpitations, irregular heart rate, lightheadedness , peripheral edema RESPIRATORY: Absent: cough, shortness of breath, dyspnea with exertion, orthopnea, wheezing, stridor, hemoptysis GASTROINTESTINAL: Absent: abdominal pain, abdominal distension, nausea, vomiting, diarrhea, constipation, melena, hematochezia GENITOURINARY: Absent: dysuria, frequency, urgency, hesitancy, hematuria, flank pain, genital pain MUSCULOSKELETAL: Absent: myalgia, arthralgia, joint swelling, back pain, bilateral knee pain, neck pain SKIN: Absent: rash, itching, pallor HEMATOLOGIC/IMMUNOLOGIC: Absent: easy bleeding, easy bruising, lymphadenopathy, frequent infections ENDOCRINE: Absent: unexplained weight gain, unexplained weight loss, heat intolerance, cold intolerance NEUROLOGIC: Absent: headache, focal weakness or paresthesias, dizziness, unsteady gait, seizure, mental status changes, bladder or bowel incontinence PSYCHIATRIC: Absent: anxiety, depression, suicidal or homicidal ideation, hallucinations. PHYSICAL EXAMINATION Vital Signs - 24 hr 03/10/19 11:58 Temperature 98 F Pulse Rate 87 Respiratory 18 Rate Blood Pressure 188/75 H O2 Sat by Pulse 98 Oximetry (%) GENERAL: awake alert and fully oriented no acute distress HEAD: normal EYES: pupils equal, round and reactive to light EARS, NOSE, THROAT: ears normal nares patent oropharynx clear without exudates NECK: normal no JVD LUNGS: breath sounds equal, clear to auscultation bilaterally no use of accessory muscles HEART: regular rate and rhythm, normal S1 and S2 + murmur ABDOMEN: soft nontender, not distended normoactive bowel sounds MUSCULOSKELETAL: normal range of motion at all joints UPPER EXTREMITIES: 2+ pulses warm well-perfused LOWER EXTREMITIES: 2+ pulses warm to palpation well-perfused no pitting edema NEUROLOGICAL: no neuro focal deficits PSYCHIATRIC: cooperative good eye contact appropriate mood and affect SKIN: warm dry normal turgor no rashes or lesions noted Laboratory Results - last 24 hr 03/10/19 03/10/19 14:00 14:00 WBC 5.7 RBC 4.96 Hgb 11.3 Hct 36.7 D MCV 73.9 L MCH 22.8 L MCHC 30.8 L RDW 20.8 H Plt Count 196 D MPV 9.2 Absolute Neuts (auto) 3.6 Neutrophils % 63.3 D Lymphocytes % 27.7 D Monocytes % 7.0 Eosinophils % 1.3 D Basophils % 0.7 D Nucleated RBC % 0 Hypochromia 0 Platelet Estimate Normal Polychromasia 1+ Poikilocytosis 1+ Anisocytosis 1+ Microcytosis 1+ Macrocytosis 0 Ovalocytes 1+ Emmanuel Cells 1+ Sodium 139 Potassium 4.9 Chloride 103 Carbon Dioxide 28 Anion Gap 8 BUN 17.0 Creatinine 1.4 H Est GFR (CKD-EPI)AfAm 44.32 Est GFR (CKD-EPI)NonAf 38.24 Random Glucose 108 H Calcium 12.6 H Total Bilirubin 0.5 AST 21 ALT 19 Alkaline Phosphatase 113 Total Protein 7.7 Albumin 4.2 TSH 1.62 ASSESSMENT/PLAN: 69 year old female with a past medical history of IDDM, hypertension, CKD, breast CA (s/p resection in 2011) who was sent from her primary PCP for further evaluation for hypercalcemia. #1 Hypercalcemia Rule Out Malignancy (Multiple Myeloma, Lymphoma, Leukemia) Cacium level 12.6 Symptomatic with back pain and bilateral knee pain Labs notable for normal WBC, albumin WNL, normal hgb/hct, and platelets, RDW elevated and MCV,MCH and MCHC low TSH normal, PTH pending Lumbar spine X ray pending MRI of thoracic and lumbar spine without contrast ordered X ray of right and left knee ordered Heme/Oncology - Dr. Ruggiero consulted #2 Acute on Chronic Kidney Injury Creatinine 1.4(baseline creatinine 0.9-1.7) Repeat BMP in am Continue with lisinopril and chlorothalidone for elevated blood pressures #3 Hypertension BP elevated , euvolemic on exam Continue with metoprolol,nifedipine, lisinopril and chlorothalidone Low sodium diet Continue to monitor Will check echocardiogram(has murmur) #4 IDDM Accucheks before meals and at bedtime Insulin as per sliding scale FEN encourage oral fluids monitor electrolytes with daily BMP low sodium diet DVT Prophylaxis TEDS OOB to chair Visit type - Emergency Visit Emergency Visit: Yes ED Registration Date: 03/10/19 Care time: The patient presented to the Emergency Department on the above date and was hospitalized for further evaluation of their emergent condition. - New Patient This patient is new to me today: Yes Date on this admission: 03/10/19 - Critical Care Critical Care patient: No
[2019-03-10] MEDS ORDERED: DIVALPROEX NA *ER* EXTEND REL 250 MG TABLET.SA PO SCH (22:00)
[2019-03-10] MEDS ORDERED: ATORVASTATIN CA 80 MG TABLET (FP) PO SCH (22:00)
[2019-03-10] MEDS ORDERED: NIFEdipine E.R. 30 MG TABLET (FP) ONE (23:19)
[2019-03-10] MEDS ORDERED: ATORVASTATIN CA 80 MG TABLET (FP) ONE (23:19)
[2019-03-10] MEDS ORDERED: METOPROLOL TARTRATE 50 MG TABLET (FP) ONE (23:19)
[2019-03-10] MEDS: NIFEdipine E.R 60 MG TABLET (UD) PO SCH (23:27)
[2019-03-10] MEDS: METOPROLOL TARTRATE 50 MG TABLET (FP) PO SCH (23:27)
[2019-03-10] MEDS ORDERED: SODIUM CHLORIDE 1,000 ML IV SCH (23:30)
[2019-03-11 05:12] VITALS: TEMP 98.4; BMI 30.5
[2019-03-11] MEDS ORDERED: INSULIN (LEVEMIR) 100 UNITS/ML UNITS SQ ONE (06:56)
[2019-03-11] MEDS ORDERED: INSULIN (NOVOLOG) ASPART 100 UNITS/ML 10ML VIAL ONE (06:56)
[2019-03-11] MEDS ORDERED: INSULIN SLIDING SCALE (NOVOLOG) 1 VIAL SQ SCH (07:00)
[2019-03-11 08:38] LABS: BASO % 0.3 % (0-2.0); EOS % 1.9 % (0-4.5); HEMOGLOBIN 9.1 GM/dL (10.7-15.3); LYMPH % 42.3 % (8-40); MCH 23.2 pg (25.7-33.7); MCHC 31.5 g/dl (32.0-36.0); MEAN CELL VOLUME 73.6 fl (80-96); MEAN PLT VOLUME 9.4 fl (7.5-11.1); NEUT % 47.5 % (42.8-82.8); PLATELET COUNT 165 K/MM3 (134-434); RBC 3.94 M/mm3 (3.60-5.2); RDW 20.5 % (11.6-15.6); WHITE BLOOD COUNT 4.3 K/mm3 (4.0-10.0)
[2019-03-11 09:10] LABS: BLOOD UREA NITROGEN 19.4 mg/dL (7-18); CALCIUM 9.9 mg/dL (8.5-10.1); CREATININE 1.3 mg/dL (0.55-1.3); PHOSPHOROUS 3.1 mg/dL (2.5-4.9)
[2019-03-11] MEDS ORDERED: ASPIRIN 81 MG CHEWABLE TABLETS PO SCH (10:00)
[2019-03-11] MEDS ORDERED: POLYETHYLENE GLYCOL 3350 119 GM BTL PO SCH (10:00)
[2019-03-11] MEDS ORDERED: LISINOPRIL 20 MG TABLET (FP) PO SCH (10:00)
[2019-03-11] MEDS ORDERED: CHLORTHALIDONE 25 MG TABLET PO SCH (10:00)
[2019-03-11] MEDS ORDERED: CLOPIDOGREL BISULFATE 75 MG TABLET (FP) PO SCH (10:00)
--- NOTE | 2019-03-11 10:30 | PN ---
Progress Note (short form) - Note Progress Note: Hospitalist Medicine States that she was sent here d/t her high calcium level, back and knee pain. Pain has improved. She follows with Dr. Horvath from [facility] for onc. Finished rad, chemo and is s/p mastectomy per pt. Vitals 03/11/19 02:30 Temperature 98.4 F Respiratory 18 Rate Blood Pressure 155/78 O2 Sat by Pulse 96 Oximetry (%) Physical Exam general: resting comfortably, in NAD HEENT: NCAT, PERRLA neck: supple cardio: +systolic murmur appreciated, S1, S2 RRR. no r/g pulm: CTA b/l. no accessory m usage abdomen: nontender, nondistended LE: without edema, preserved ROM Laboratory Tests 03/11/19 03/11/19 07:30 07:30 WBC 4.3 Hgb 9.1 L Hct 29.0 L D Plt Count 165 Sodium 143 Potassium 4.0 Chloride 110 H BUN 19.4 H Creatinine 1.3 Calcium 9.9 Imaging Lumbar XR: no sign of fracture or subluxation, no sign blastic or lytic changes Assessment/Plan 69 year old female with a past medical history of NIDDM, hypertension, CKD, breast CA (s/p resection in 2011) who was sent from her primary PCP for further evaluation for hypercalcemia. # Hypercalcemia likely 2/2 breast CA -improving calcium, new corrected Ca 9.7 -was on alendronate, med rec pending. pharma closed today -c/w IVF for now, improving -f/u vit D -TSH WNL -f/u XR knee -PT -Heme/onc consulted - Dr. Ruggiero f/u CXR, bone scan, SPEP, IPEP, immunofixation, Ig's, iron studies Hb electrophoresis #Fecal retention (on imaging) -started on miralax -c/t monitor #BRYON on CKD -improved; Cr at baseline now -c/t monitor #HTN-uncontrolled -likely 2/2 pain -c/w with metoprolol,nifedipine, lisinopril, chlorothalidone -med rec pending, pharma closed -f/u ECHO; w/ murmur #NIDDM -ISS ACHS -f/u BGM #F/E/N have d/c IVF; Ca normalizing continue to follow lytes sodium controlled diet #PPX DVT: SCD's, CAROL's #Dispo cont'd monitoring on med-surg f/u above studies per onc med rec needed when pharmacy open. <Pearl Segovia - Last Filed: 03/11/19 13:04> - Note Progress Note: Seen and examined; I agree with thee above assessment and plan and DCS as documented. Discussed with resident and indicated subspecialists. Independently verified all reagan historical elements and PE features. All questions answered. No further subjective issues; VS labs imaging reviewed NAD, AAO HR wnl, +s1/2 NT ND +BS Neuro baseline with no new FNDs or speech changes Agreee with resident asseesment and plan as documented above. Continue current txplan. <Hayden Rand - Last Filed: 04/12/19 07:10>
[2019-03-11] MEDS: NIFEdipine E.R 60 MG TABLET (UD) PO SCH (11:07)
[2019-03-11] MEDS: METOPROLOL TARTRATE 50 MG TABLET (FP) PO SCH (11:07)
--- NOTE | 2019-03-11 11:24 | CONS ---
DATE OF CONSULTATION: DATE OF DICTATION: 03/11/2019 HISTORY OF PRESENT ILLNESS: This is a 69-year-old female who entered for hypercalcemia. PAST MEDICAL HISTORY: Includes hypertension, chronic kidney disease, insulin dependent diabetes, hypercholesterolemia. PAST SURGICAL HISTORY: Includes left lumpectomy followed by radiation, 5 years of hormonal therapy, and the patient states no chemotherapy. She had a resection in 2011 according to the chart. The patient was seen by a private physician, referred for hypercalcemia with a calcium of 13. It has been elevated in the hospital as well. PTH is pending. Alkaline phosphatase is normal. Patient currently receiving IVs. Patient scheduled to go to [facility] in the next day or two and is anxious to leave. PAST HISTORY: As aforementioned, insulin dependent diabetes, hypertension, chronic kidney disease, hypercholesterolemia. PAST SURGICAL HISTORY: Breast cancer. Former smoker of 20 years. No alcohol, no drugs. ALLERGIES: According to the chart, DEPAKOTE, FLAGYL, ZOSYN, VANCOMYCIN. HOME MEDICINE: Include Fosamax, aspirin, Lipitor, chlorthalidone, Prinivil, metoprolol, nifedipine, Plavix, Trulicity. All these are old medicines. The patient denies, or is unable to provide, current medications. REVIEW OF SYSTEMS: No headaches. No diplopia. No epistaxis. No dysphagia. No chest pain. No shortness of breath. No nausea, vomiting, diarrhea. Musculoskeletal pains in the knees and the back and the joints. No dysuria, hematuria. CURRENT PHYSICAL EXAMINATION: Vital Signs: Blood pressure 155/78, pulse 81, respiratory 18, afebrile. HEENT: JOLENE, EOM intact. Oropharynx upper bite plate. Lungs: Relatively clear. Cardiac: RSR. Breast: Right breast no masses. Left breast surgical scar, no masses. Axilla no definite masses. Abdomen: Soft. No organomegaly or masses. Extremities: Negative. LABORATORY: 143 sodium, potassium 4.0, chloride 110, CO2 of 27, creatinine 1.4, 1.3. GFR 48. Calcium 12.6, repeat 9.9 with hydration. AST 21, ALT 19, alkaline phosphatase 110, protein 7.7, albumin 4.2. Vitamin D pending. TSH 1.6, PTH and PTHrP pending. WBC 4.3, hematocrit 29 with hydration, MCV 73, platelets 165, 47 polycytes, 42 lymphocytes, 8 monocytes. Lumbar spine x-rays, arthritic changes. IMPRESSION: History of breast carcinoma, musculoskeletal complaints, initial hypercalcemia corrected with fluids. Vitamin D, BPH pending. Past history of breast carcinoma. Albumin to globulin ratio is normal. Alkaline phosphatase is normal. Can consider in view of kidney disease and anemia protein studies, can consider bone scan. Patient anxious to go to [facility]; this will have to be sorted out. Patient apparently followed at [facility]. Can return to [facility] for further evaluation. Bone scan, however, and protein studies as well as PTH assessment would be helpful. Adequate hydration has improved and normalized serum calcium. Thank you. STEW MCKENZIE M.D. ISABELA/[id number]
[2019-03-11 11:32] VITALS: BP 128/57; PULSE 80
--- NOTE | 2019-03-11 11:38 | PN ---
Progress Note (short form) - Note Progress Note: Patient seen and examined 69 year old female who presented with hypercalcemia which has corrected with hydration Patient has trip planned for for [facility] Review of records from [facility]-- Sge Ia - invasive ductal c treated with lumpectomy , RT and initally arimidex. Arimidex changed to exemestane because of intolerance. Completed 5 years of hormonal therapy in 2017. Past history in addition to IDDM, hypercholesteroemia, HBP, includes treatment of brain abscess. Last Vital Signs Temp Pulse Resp BP Pulse Ox 98.4 F 81 18 155/78 96 03/11/19 02:30 03/11/19 02:30 03/11/19 02:30 03/11/19 02:30 03/11/19 02:30 HEENT: JOLENE, EOM Intact Oropharynx: No thrush, No mucositis Neck: Supple Nodes: Without adenopathy Breasts: Without masses, surgical scar right breast Cor: RSR, No murmurs, No gallops Lungs: Clear to P&A Abd: Soft, Normal bowel sounds, No organomegaly Ext:No significant edema Skin: No rashes, Integument intact CBC, BMP 03/11/19 07:30 03/11/19 07:30 Current Medications Generic Name Dose Route Start Last Admin Trade Name Freq PRN Reason Stop Dose Admin Aspirin 81 mg 03/11/19 10:00 03/11/19 11:07 Asa - PO 81 mg DAILY CECILIO Administration Atorvastatin Calcium 80 mg 03/10/19 22:00 03/10/19 23:27 Lipitor - PO 80 mg HS CECILIO Administration Chlorthalidone 25 mg 03/11/19 10:00 [place] - PO DAILY CECILIO Clopidogrel Bisulfate 75 mg 03/11/19 10:00 03/11/19 11:05 Plavix - PO 75 mg DAILY CECILIO Administration Divalproex Sodium 750 mg 03/10/19 22:00 03/10/19 23:27 Depakote *Er* - PO Not Given HS CECILIO Sodium Chloride 1,000 mls @ 75 mls/hr 03/10/19 23:30 03/11/19 03:12 Normal Saline - IV 75 mls/hr ASDIR CECILIO Administration Insulin Aspart 1 vial 03/11/19 07:00 03/11/19 06:54 Novolog Vial Sliding Scale - SQ Not Given [facility] Protocol Lisinopril 40 mg 03/11/19 10:00 03/11/19 11:05 Prinivil PO 40 mg DAILY CECILIO Administration Metoprolol Tartrate 50 mg 03/10/19 22:00 03/11/19 11:07 Lopressor - PO 50 mg BID CECILIO Administration Nifedipine 60 mg 03/10/19 22:00 03/11/19 11:07 Procardia Xl - PO 60 mg BID CECILIO Administration Polyethylene Glycol 17 gm 03/11/19 10:00 03/11/19 11:07 Miralax (For Daily Use) - PO 17 grams DAILY CECILIO Administration Sumatriptan Succinate 100 mg 03/10/19 18:15 Imitrex - PO DAILY PRN HEADACHE Impression: Hypercalcemia History of breast ca CKD HBP IDDM Hypercholesterolemia Hx of brain abscess Anemia- hypo/micro Patient has plans for trip to [place] on 03/12. ?? how much work up can be done Suggest : Chest X-ray, bone scan Protein studies _SPEP, IPEP, serum and urine immunofixation , quantitative immunoglobulins Fe, TIBC, ferritin, HbElectrophoresis Await PTH/PTHrP/Vitamin D
--- NOTE | 2019-03-11 16:09 | DS ---
Physical Exam: SUBJECTIVE: Patient seen and examined at bedside. Had extensive conversation with family about importance of pt staying in hospital to have full work-up done to r/o mets from breast CA. All questions answered. Still, pt and family members refusing states "she hates hospitals and the work up is too slow so we are leaving." AMA form given and filled out. OBJECTIVE: Vital Signs Period Temp Pulse Resp BP Sys/Alvares Pulse Ox Last 24 Hr 98.1 F-98.6 F 80-94 17-18 128-159/47-78 96-96 Physical Exam general: resting comfortably, in NAD HEENT: NCAT, PERRLA neck: supple cardio: +systolic murmur appreciated, S1, S2 RRR. no r/g pulm: CTA b/l. no accessory m usage abdomen: nontender, nondistended LE: without edema, preserved ROM LABS Laboratory Results - last 24 hr 03/10/19 03/11/19 03/11/19 14:00 06:52 07:30 WBC 4.3 RBC 3.94 Hgb 9.1 L Hct 29.0 L D MCV 73.6 L MCH 23.2 L MCHC 31.5 L RDW 20.5 H Plt Count 165 MPV 9.4 Absolute Neuts (auto) 2.1 Neutrophils % 47.5 D Lymphocytes % 42.3 H D Monocytes % 8.0 Eosinophils % 1.9 Basophils % 0.3 Nucleated RBC % 0 Hypochromia 0 Platelet Estimate Normal Polychromasia 1+ Poikilocytosis 1+ Anisocytosis 1+ Microcytosis 1+ Macrocytosis 0 Ovalocytes 1+ Lawai Cells 1+ Sodium Potassium Chloride Carbon Dioxide Anion Gap BUN Creatinine Est GFR (CKD-EPI)AfAm Est GFR (CKD-EPI)NonAf POC Glucometer 104 Random Glucose Calcium Phosphorus 03/11/19 07:30 WBC RBC Hgb Hct MCV MCH MCHC RDW Plt Count MPV Absolute Neuts (auto) Neutrophils % Lymphocytes % Monocytes % Eosinophils % Basophils % Nucleated RBC % Hypochromia Platelet Estimate Polychromasia Poikilocytosis Anisocytosis Microcytosis Macrocytosis Ovalocytes Emmanuel Cells Sodium 143 Potassium 4.0 Chloride 110 H Carbon Dioxide 27 Anion Gap 6 L BUN 19.4 H Creatinine 1.3 Est GFR (CKD-EPI)AfAm 48.47 Est GFR (CKD-EPI)NonAf 41.82 POC Glucometer Random Glucose 95 Calcium 9.9 Phosphorus 3.1 03/10/19 03/10/19 03/10/19 14:00 14:00 14:00 Total Protein 7.7 Albumin 4.2 Vitamin D 25-Hydroxy Pending TSH 1.62 PTH Intact Pending PTH Intact Intraop 0 m Serum DAVIN Interpret IEP IgG IEP IgA IEP IgM 03/10/19 03/11/19 14:00 12:29 Total Protein Albumin Vitamin D 25-Hydroxy TSH PTH Intact PTH Intact Intraop 0 m Pending Serum DAVIN Interpret Pending IEP IgG Pending IEP IgA Pending IEP IgM Pending Imaging Lumbar XR: no sign of fracture or subluxation, no sign blastic or lytic changes HOSPITAL COURSE: Date of Admission:03/10/19 Date of Discharge: 03/11/19 69 year old female with a past medical history of NIDDM, hypertension, CKD, breast CA (s/p resection in 2011) who was sent from her primary PCP for further evaluation for hypercalcemia. # Hypercalcemia likely 2/2 breast CA, r/o mets -improving calcium, new corrected Ca 9.7. however corrected only after IVF -was on alendronate, med rec pending. ph[facility] closed today -c/w IVF for now, improving -f/u vit D -TSH WNL -f/u XR knee -PT -Heme/onc consulted - Dr. Ruggiero f/u CXR, bone scan, SPEP, IPEP, immunofixation, Ig's, iron studies Hb electrophoresis -needs full w/u, must r/o mets. high risk to leave hospital, discussed at length w/patient and pt's sons #Fecal retention (on imaging) -started on miralax -c/t monitor #BRYON on CKD -improved; Cr at baseline now -c/t monitor #HTN-uncontrolled -likely 2/2 pain -c/w with metoprolol,nifedipine, lisinopril, chlorothalidone -med rec pending, pharma closed -f/u ECHO; w/ murmur #NIDDM -ISS ACHS -f/u BGM Minutes to complete discharge: 44 <Pearl Segovia - Last Filed: 03/11/19 16:09> Physical Exam: SUBJECTIVE: Patient seen and examined OBJECTIVE: PHYSICAL EXAM GENERAL: The patient is awake, alert, and fully oriented, in no acute distress. HEAD: Normal with no signs of trauma. EYES: PERRL, extraocular movements intact, sclera anicteric, conjunctiva clear. ENT: Ears normal, nares patent, oropharynx clear without exudates, moist mucous membranes. NECK: Trachea midline, full range of motion, supple. LUNGS: Breath sounds equal, clear to auscultation bilaterally, no wheezes, no crackles, no accessory muscle use. HEART: Regular rate and rhythm, S1, S2 without murmur, rub or gallop. ABDOMEN: Soft, nontender, nondistended, normoactive bowel sounds, no guarding, no rebound, no hepatosplenomegaly, no masses. EXTREMITIES: 2+ pulses, warm, well-perfused, no edema. NEUROLOGICAL: Cranial nerves II through XII grossly intact. Normal speech, gait not observed. PSYCH: Normal mood, normal affect. SKIN: Warm, dry, normal turgor, no rashes or lesions noted. LABS HOSPITAL COURSE: Date of Admission:03/10/19 Date of Discharge: 04/12/19 <Hayden Rand - Last Filed: 04/12/19 05:43> Discharge Summary Problems reviewed: Yes Reason For Visit: ACUTE KIDNEY INJURY - Home Medications Comprehensive Discharge Medication List: Ambulatory Orders Alendronate Sodium [Fosamax] 70 mg PO WEEKLY 01/02/15 Aspirin [ASA -] 81 mg PO DAILY 01/02/15 Atorvastatin Ca [Lipitor] 80 mg PO HS 01/02/15 Chlorthalidone 25 mg PO DAILY 01/02/15 Lisinopril [Prinivil -] 40 mg PO DAILY 01/02/15 Metoprolol Tartrate 50 mg PO BID 01/02/15 Nifedipine [Nifedipine ER] 60 mg PO BID 01/02/15 Clopidogrel Bisulfate [Clopidogrel] 75 mg PO DAILY 07/03/18 Dulaglutide [Trulicity] 0.75 mg SQ WEEKLY 07/03/18 Metronidazole 500 mg IV Q8H 42 Days tablet 07/17/18 Piperacillin/Tazob 2.25 gm [Zosyn -] 2.25 gm IVPB Q8H vial 07/17/18 Sumatriptan Succinate [Imitrex -] 100 mg PO DAILY PRN 15 Days #30 tablet Divalproex *ER* [Depakote *ER* -] 750 mg PO HS 08/25/18 <Pearl Segovia - Last Filed: 03/11/19 16:09> Problems reviewed: Yes - Home Medications Comprehensive Discharge Medication List: Ambulatory Orders Alendronate Sodium [Fosamax] 70 mg PO WEEKLY 01/02/15 Aspirin [ASA -] 81 mg PO DAILY 01/02/15 Atorvastatin Ca [Lipitor] 80 mg PO HS 01/02/15 Chlorthalidone 25 mg PO DAILY 01/02/15 Lisinopril [Prinivil -] 40 mg PO DAILY 01/02/15 Metoprolol Tartrate 50 mg PO BID 01/02/15 Nifedipine [Nifedipine ER] 60 mg PO BID 01/02/15 Clopidogrel Bisulfate [Clopidogrel] 75 mg PO DAILY 07/03/18 Dulaglutide [Trulicity] 0.75 mg SQ WEEKLY 07/03/18 Metronidazole 500 mg IV Q8H 42 Days tablet 07/17/18 Piperacillin/Tazob 2.25 gm [Zosyn -] 2.25 gm IVPB Q8H vial 07/17/18 Sumatriptan Succinate [Imitrex -] 100 mg PO DAILY PRN 15 Days #30 tablet Divalproex *ER* [Depakote *ER* -] 750 mg PO HS 08/25/18 <Hayden Rand - Last Filed: 04/12/19 05:43> Condition: Stable - Instructions Referrals: Nehal Blevins [Primary Care Provider] - Disposition: AGAINST MEDICAL ADVICE This patient is new to me today: Yes Date on this admission: 03/11/19 Emergency Visit: No Critical Care patient: No - Discharge Referral Referred to [facility] Med P.C.: No <Pearl Segovia - Last Filed: 03/11/19 16:09> This patient is new to me today: Yes Date on this admission: 04/12/19 Emergency Visit: No Critical Care patient: No - Discharge Referral Referred to [facility] Med P.C.: No <Hayden Rand - Last Filed: 04/12/19 05:43> ATTENDING PHYSICIAN STATEMENT I saw and evaluated the patient. I reviewed the resident's note and discussed the case with the resident. I agree with the resident's findings and plan as documented. Independently reviewed all labs, imaging findings and test results. Independently verified all reagan historical information and PE findings. Discussed DC planning with resident. No additional complaints per subjective information; stable and has reached maximal benefit from this hospitalization. VS labs imaging reviewed NAD AAO resting in bed HR wnl +s1/2 no mgr NT ND +BS Agree with DC planning as documentated including diet, followups, etc. <Hayden Rand - Last Filed: 04/12/19 05:43>
== END 2019-03-11 15:50 | disposition left against medical advice (07) | DRG 598 ==
LOC: JER 11:53 → JERBED 16:22 → J5S 03-11 02:22
PROVIDERS: ADMIT Internal Medicine; ATTEND Internal Medicine
DX: C50.919 Malignant neoplasm of unspecified site of unspecified female breast (principal); N17.9 Acute kidney failure, unspecified; E83.52 Hypercalcemia; E86.0 Dehydration; M54.9 Dorsalgia, unspecified; M25.562 Pain in left knee; M25.561 Pain in right knee; K59.00 Constipation, unspecified; D64.9 Anemia, unspecified; I12.9 Hypertensive chronic kidney disease with stage 1 through stage 4 chronic kidney disease, or unspecified chronic kidney disease; E11.22 Type 2 diabetes mellitus with diabetic chronic kidney disease; N18.9 Chronic kidney disease, unspecified
CPT/HCPCS: 36415; 72100-TC-FY; 80048; 80053; 82306; 82310; 82784; 82962; 83970; 84100; 84443; 85025; 87086; 87186; 93005; 93010; 99285-25; J7030